=== PATIENT | male | born 1960 | race Caucasian/White ===

== ENCOUNTER 2018-05-27 20:31 | Inpatient (IN) ==
[2018-05-27 21:39] LABS: Basophils # 0.1 K/mcL (0.0-0.2); Basophils % 1.1 %; Eosinophils # 0.2 K/mcL (0.0-0.6); Eosinophils % 2.2 %; Hematocrit 48.3 % (37.5-50.1); Hemoglobin 16.1 g/dL (12.9-16.9); Immature Granulocytes % 0.2 % (0-4); Lymphocytes # 3.5 K/mcL (0.6-4.6); Lymphocytes % 33.7 %; Mean Corpuscular HGB Conc 33.3 g/dL (31.6-35.5); Mean Corpuscular Hemoglobin 30.7 pg (28.0-33.3); Mean Platelet Volume 9.7 fL (9.4-12.4); Monocytes % 9.9 %; Neutrophils # 5.5 K/mcL (1.6-8.9); Platelet Count 200 K/mcL (140-400); Red Blood Count 5.25 M/mcL (4.19-5.50); Red Cell Distribution Width 12.2 % (11.5-14.5); Segmented Neutrophils % 52.9 %
[2018-05-27] MEDS ORDERED: Nitroglycerin 0.4 MG TAB.SUBL SL ONE (21:46)
[2018-05-27 21:47] LABS: Activated Partial Thrombo Time 31.1 Seconds (26.0-36.0)
[2018-05-27] MEDS ORDERED: Aspirin 81 MG TAB.CHEW ONE (21:47)
[2018-05-27] MEDS: Aspirin 81 MG TAB.CHEW PO STA ×2 (21:51→21:52)
[2018-05-27] MEDS: Nitroglycerin 0.4 MG TAB.SUBL SL PRN ×4 (21:51→21:59)
--- NOTE | 2018-05-27 21:58 | Emergency Department Note ---
Disposition Clinical Impression: Chest pain Qualifiers: Chest pain type: unspecified Qualified Code(s): R07.9 - Chest pain, unspecified Disposition: Admitted As Inpatient General Adult HPI - General Chief complaint: ED Chest Pain Stated complaint: cp/high blood pressure/magen Time Seen by Provider: 05/27/18 20:57 Source: patient Limitations: no limitations - History of Present Illness HPI Narrative: Patient presented complaining of chest pain has been present most of the last 2 days. He cannot identify any alleviating or exacerbating factors. As a burning pain in the left parasternal region. Is associated with diaphoresis and nausea, no shortness of breath. Associated with left arm pain. He cannot recall any similar episodes in the past. He has 2 first-degree relatives who of heart attacks, 130s and 160s. He is a long-term pack-a-day smoker with dyslipidemia and high cholesterol area no history of hypertension, although his blood pressure was elevated earlier today. He had a heart catheterization 15 years ago that did not demonstrate coronary disease. No fever or cough. Pain Scale: 5 - Related Data Home Medications Medication Instructions Recorded Confirmed Rosuvastatin [Crestor] 20 mg PO HS 05/27/18 05/27/18 Allergies Allergy/AdvReac Type Severity Reaction Status Date / Time No Known Allergies Allergy Verified 05/27/18 22:00 All systems ED: reviewed and negative except as stated. Past Medical History - Past Medical History Medical history: Reports: hyperlipidemia Psychiatric history: Reports: no psych history - Social History Smoking Status: Current every day smoker Smokeless Tobacco Status: Yes Alcohol use: Reports: occasionally Drug use: Reports: none Physical Exam Vital signs noted please see nurse's notes. Gen.: Well-developed, well-nourished patient lying in bed who appears nontoxic. Head: Atraumatic, normocephalic. Eyes: Sclerae anicteric. ENT: Mucous membranes moist. Neck: No JVD. Heart: Regular rate and rhythm without appreciable murmur. Lungs: Normal respiratory pattern without respiratory distress, lungs clear to auscultation bilaterally. Abdomen: Soft, nontender, nondistended, no guarding or peritoneal signs. Skin: Warm and dry without rash. Neurologic: Awake, alert with normal speech and mental status. Cranial nerves grossly intact. No focal deficits or lateralizing signs. Psychiatric: Normal mood and affect. Muscular skeletal: No peripheral edema. No signs of trauma or DVT. - General Limitations: no limitations General appearance: alert Course Vital Signs Temperature 97.6 F 05/27/18 20:34 Pulse Rate 84 05/27/18 20:34 Respiratory Rate 18 05/27/18 20:34 Blood Pressure 171/99 05/27/18 20:34 O2 Sat by Pulse Oximetry 97 05/27/18 20:34 Temperature 97.3 F L 05/28/18 10:54 Pulse Rate 57 05/28/18 10:54 Respiratory Rate 16 05/28/18 10:54 Blood Pressure 116/74 05/28/18 10:54 O2 Sat by Pulse Oximetry 95 05/28/18 07:11 Oxygen Delivery Oxygen Delivery Room Air Medical Decision Making - MDM Narrative Medical decision making narrative: There is a normal EKG, but a somewhat concerning story and a very concerning risk factor profile.HEART score is H2 E0 A1 R2 Troponin pending. We will give him a nitroglycerin trial, anticipate admission. - Lab Data Result diagrams: 05/28/18 03:46 05/28/18 03:46 Lab Results 05/27/18 05/27/18 05/27/18 Range/Units 21:00 21:00 21:00 WBC 10.4 (4.3-11.1) K/mcL RBC 5.25 (4.19-5.50) M/mcL Hgb 16.1 (12.9-16.9) g/dL Hct 48.3 (37.5-50.1) % MCV 92.0 (83.0-100.0) fL MCH 30.7 (28.0-33.3) pg MCHC 33.3 (31.6-35.5) g/dL RDW 12.2 (11.5-14.5) % Plt Count 200 (140-400) K/mcL MPV 9.7 (9.4-12.4) fL Immature Gran % 0.2 (0-4) % Seg Neutrophils % 52.9 % Lymphocytes % 33.7 % Monocytes % 9.9 % Eosinophils % 2.2 % Basophils % 1.1 % Neutrophils # 5.5 (1.6-8.9) K/mcL Lymphocytes # 3.5 (0.6-4.6) K/mcL Monocytes # 1.0 (0.0-1.3) K/mcL Eosinophils # 0.2 (0.0-0.6) K/mcL Basophils # 0.1 (0.0-0.2) K/mcL PT 11.0 (9.4-12.1) Seconds INR 1.0 APTT 31.1 (26.0-36.0) Seconds Sodium (136-145) mEq/L Potassium (3.5-5.1) mEq/L Chloride (98-107) mEq/L Carbon Dioxide (23-29) mEq/L BUN (6-20) mg/dL Creatinine (0.70-1.30) mg/dL Est GFR ( Amer) (> 60) Est GFR (Non-Af Amer) (> 60) BUN/Creatinine Ratio (6-26) Glucose (70-105) mg/dL Calculated Osmolality (280-300) Calcium (8.6-10.3) mg/dL Troponin I (< 0.04) ng/mL B-Natriuretic Peptide 25 (Less than 100) pg/mL 05/27/18 Range/Units 21:00 WBC (4.3-11.1) K/mcL RBC (4.19-5.50) M/mcL Hgb (12.9-16.9) g/dL Hct (37.5-50.1) % MCV (83.0-100.0) fL MCH (28.0-33.3) pg MCHC (31.6-35.5) g/dL RDW (11.5-14.5) % Plt Count (140-400) K/mcL MPV (9.4-12.4) fL Immature Gran % (0-4) % Seg Neutrophils % % Lymphocytes % % Monocytes % % Eosinophils % % Basophils % % Neutrophils # (1.6-8.9) K/mcL Lymphocytes # (0.6-4.6) K/mcL Monocytes # (0.0-1.3) K/mcL Eosinophils # (0.0-0.6) K/mcL Basophils # (0.0-0.2) K/mcL PT (9.4-12.1) Seconds INR APTT (26.0-36.0) Seconds Sodium 137 (136-145) mEq/L Potassium 3.8 (3.5-5.1) mEq/L Chloride 104 (98-107) mEq/L Carbon Dioxide 25 (23-29) mEq/L BUN 21 H (6-20) mg/dL Creatinine 1.02 (0.70-1.30) mg/dL Est GFR ( Amer) > 60 (> 60) Est GFR (Non-Af Amer) > 60 (> 60) BUN/Creatinine Ratio 21 (6-26) Glucose 91 (70-105) mg/dL Calculated Osmolality 287 (280-300) Calcium 9.6 (8.6-10.3) mg/dL Troponin I < 0.03 (< 0.04) ng/mL B-Natriuretic Peptide (Less than 100) pg/mL - EKG Data EKG #1 EKG shows normal: sinus rhythm (Rate 75, normal intervals and QRS duration. No acute ischemic ST segment or T-wave changes. This is a normal EKG.)
[2018-05-27 22:00] LABS: BUN/Creatinine Ratio 21 (6-26); Blood Urea Nitrogen 21 mg/dL (6-20); Calcium 9.6 mg/dL (8.6-10.3); Carbon Dioxide 25 mEq/L (23-29); Chloride 104 mEq/L (98-107); Glucose 91 mg/dL (70-105); Osmolality,Calculated 287 (280-300); Potassium 3.8 mEq/L (3.5-5.1); Sodium 137 mEq/L (136-145); Troponin I < 0.03 ng/mL (< 0.04); eGFR For Non-African Americans > 60 (> 60)
[2018-05-28] MEDS ORDERED: Naloxone 0.4 MG/ML INJ IVP PRN (02:36)
[2018-05-28] MEDS ORDERED: traMADol 50 MG TABLET PO PRN (02:36)
[2018-05-28] MEDS ORDERED: Acetaminophen 325 MG TABLET PO PRN (02:36)
--- NOTE | 2018-05-28 03:55 | Internal Med History&Physical ---
Date of Encounter: 05/28/18 Time of Encounter: 02:00 Internal Medicine - H&P: HPI Chief complaint: chest pain Admitted From: Emergency Dept Plans for Post Hospital Care: Home History of present illness: Mr. Velasquez is a 57 year old male who presents with sudden onset of substernal chest pain and pressure associated with nausea, diaphoresis, shortness of breath , and radiation to his left arm. Symptoms first started over 24 hours ago. He initially ignored them. However, this evening, his symptoms intensified and really worried him. He then broke out in cold sweat and had associated dyspnea. His daughter forced him to come to the ER for evaluation. In the ER, he received 3 doses of sublingual nitroglycerin with complete relief of his chest pain. He was subsequently admitted to hospitalist service. Upon my assessment of the patient, he is chest pain-free and denies any dyspnea. Patient and daughter confirmed above history. He has had prior history of left heart catheterization about 15 years ago which was negative. Since then, he has not had any workup other than remote history of stress testing roughly 10 years ago. Of concern, however, is the fact that he has significant family history of coronary artery disease and premature thereof. He has a younger brother who of a massive heart attack at the age of 53. He has an older brother with known coronary disease and 7 cardiac stents. Furthermore, his mother of a heart attack in her early 60s. He also smokes and has high cholesterol. Therefore, cardiac factors include strong family history of premature coronary artery disease, smoking history, and hyperlipidemia. I discussed with patient and his daughter that I will proceed with serial cardiac enzymes and EKGs. I will tentatively order a stress test in the morning. In addition, I will consult cardiology for consideration of [facility]. Patient and daughter voiced understanding and agree with the plan. Past Med Surg Social Fam HX - Past Medical History Attestation: Yes The following information was validated with the patient. Source: patient, obtained from family Medical history: hyperlipidemia Psychiatric history: no psych history - Past Surgical History Surgical History: appendectomy Additional surgical history: appendectomy 1975, LHC in 2003 w/ no stents - Social History Smoking Status: Current every day smoker Packs per day: 1 Smokeless Tobacco Status: Yes Alcohol use: occasionally Drug use: none Current living situation: Home, With Family Activity Level: Independent ambulation, Very active Recent Out of Country Travel Within the Last 8 Weeks: No - Family History Mother Living Status: Cause of : MD Hx Family Cardiac Disorders: Yes Brother Living Status: Cause of : MD Hx Family Cardiac Disorders: Yes (MD) Internal Medicine - H&P: Meds Rosuvastatin [Crestor] 20 mg PO HS 05/27/18 [History] 3 Allergy/AdvReac Type Severity Reaction Status Date / Time No Known Allergies Allergy Verified 05/27/18 22:00 - Constitutional Constitutional: excessive sweating (associated w chest pain), no chills, no fever(s), no night sweats - EENT Eyes: no blurry vision, no change in vision Ears: no ear pain, no tinnitus Nose, mouth and throat: no nasal congestion, no sinus pressure, no sore throat - Cardiovascular Cardiovascular ROS IM: chest pain, diaphoresis, dyspnea, dyspnea on exertion, no orthopnea, no paroxysmal nocturnal dyspnea - Respiratory Respiratory: no cough, no hemoptysis, no chest congestion, no excessive phlegm production, no change in phlegm color, no pain with cough - Gastrointestinal Gastrointestinal: no abdominal pain, no diarrhea, no hematemesis, no hematochezia, no melena, no nausea, no vomiting - Genitourinary Genitourinary ROS male: no dysuria, no flank pain, no hematuria - Musculoskeletal Musculoskeletal ROS IM: no arthralgias, no back pain - Integumentary Integumentary IM: no rash, no jaundice - Neurological Neurological ROS: no dizziness, no focal weakness, no frequent falls, no headache(s) - Psychiatric Psychiatric: no anxiety, no depression - Endocrine Endocrine IM: no polydipsia, no polyuria - Hematologic/Lymphatic Hematologic/Lymphatic: no easy bruising - Allergic/Immunologic Allergic/Immunologic: no wheezing, no GI upset with certain foods - Constitutional Vitals: Temp Pulse Resp BP Pulse Ox 97.6 F 68 16 127/88 97 05/28/18 00:02 05/28/18 00:02 05/28/18 00:02 05/28/18 00:02 05/28/18 00:02 General appearance: Present: cooperative, A&O X 3, pleasant, no acute distress Exam: see below - Head Head exam: Present: normal inspection - Eye Eye exam: Present: EOMI, PERRL. Absent: scleral icterus Pupils: Present: normal accommodation - ENT ENT exam: Present: mucous membranes dry, normal exam, normal oropharynx - Neck Neck exam general surgery: Present: full ROM, supple. Absent: tenderness, nuchal rigidity, thyromegaly - Respiratory Respiratory exam: Present: CTAB. Absent: chest wall tenderness, rhonchi, wheezes - Cardiovascular Cardiovascular exam: Present: RRR, +S1, +S2. Absent: diastolic murmur, systolic murmur - GI/Abdominal GI/Abdominal exam: Present: normal bowel sounds, soft. Absent: hepatomegaly, mass, splenomegaly, tenderness - Extremities Exam Extremities exam: Present: normal capillary refill, warm, radial pulses palpable and symmetrical. Absent: calf tenderness, joint swelling, pedal edema , tenderness - Back Exam Back exam: Present: normal inspection. Absent: CVA tenderness (L), CVA tenderness (R) - Neurological Exam Neurological exam: Present: alert, oriented X3, no focal deficits, strengths equal and symetr throughout - Psychiatric Psychiatric exam: Present: normal affect, normal mood - Skin Skin exam: Present: dry, intact, warm Internal Med - H&P Results - Labs CBC & Chem 7: 05/27/18 21:00 05/27/18 21:00 - EKG Data -: EKG Interpreted by Myself - EKG Data Prior EKG available for review: no EKG comments: 05/28/18 04:02 NSR; no acute ST-T changes - Diagnostic Studies Chest x-ray Status: image reviewed by me (negative in my[facility]on; radiology read as possible LLL pneumonia -- I disagree) - Assessment and plan (1) Chest pain Current Visit: Yes Status: Acute Assessment and plan: 1. Will trend troponins and EKG's. 2. Will order ECHO. 3. Will tentatively order stress test, but I favor [facility] given symptoms, FH premature CAD, and other cardiac risk factors. 4. Consult cardiology for guidance. Qualifiers: Chest pain type: chest pain due to myocardial ischemia Ischemic chest pain type: stable angina pectoris Qualified Code(s): I20.8 - Other forms of angina pectoris (2) FH: premature coronary heart disease Current Visit: Yes Status: Acute Assessment and plan: 1. Work-up as above. 2. Consult cardiology for guidance. Strongly favor [facility]. (3) DVT prophylaxis Current Visit: Yes Status: Acute Assessment and plan: 1. Heparin SQ.
[2018-05-28 05:29] LABS: Basophils # 0.1 K/mcL (0.0-0.2); Eosinophils # 0.3 K/mcL (0.0-0.6); Eosinophils % 2.9 %; Hematocrit 47.2 % (37.5-50.1); Hemoglobin 15.8 g/dL (12.9-16.9); Immature Granulocytes % 0.3 % (0-4); Lymphocytes # 3.2 K/mcL (0.6-4.6); Lymphocytes % 36.1 %; Mean Corpuscular HGB Conc 33.5 g/dL (31.6-35.5); Mean Corpuscular Hemoglobin 30.9 pg (28.0-33.3); Mean Corpuscular Volume 92.4 fL (83.0-100.0); Mean Platelet Volume 10.5 fL (9.4-12.4); Monocytes # 0.9 K/mcL (0.0-1.3); Monocytes % 10.2 %; Neutrophils # 4.3 K/mcL (1.6-8.9); Platelet Count 194 K/mcL (140-400); Red Blood Count 5.11 M/mcL (4.19-5.50); Red Cell Distribution Width 12.3 % (11.5-14.5); Segmented Neutrophils % 49.5 %
[2018-05-28 05:32] LABS: Prothrombin Time 11.6 Seconds (9.4-12.1)
[2018-05-28 05:34] LABS: Activated Partial Thrombo Time 32.9 Seconds (26.0-36.0)
[2018-05-28 05:54] LABS: Alanine Aminotransferase 24 Units/L (7-52); Albumin 4.1 g/dL (3.5-5.7); Albumin/Globulin Ratio 1.5 (1.1-2.2); Alkaline Phosphatase 70 Units/L (34-104); Aspartate Amino Transferase 18 Units/L (13-39); BUN/Creatinine Ratio 26 (6-26); Bilirubin,Total 0.6 mg/dL (0.3-1.0); Blood Urea Nitrogen 22 mg/dL (6-20); Calcium 9.3 mg/dL (8.6-10.3); Carbon Dioxide 26 mEq/L (23-29); Chloride 105 mEq/L (98-107); Chol/HDL Ratio 7.1 (0-4.9); Cholesterol 212 mg/dL (< 200); Globulin 2.8 g/dL (2.4-3.5); Glucose 92 mg/dL (70-105); HDL Cholesterol 30 mg/dL (40-59); LDL Cholesterol,Calculated 142 mg/dL (0-99); Magnesium 2.1 mg/dL (1.6-2.6); Osmolality,Calculated 289 (280-300); Potassium 3.6 mEq/L (3.5-5.1); Sodium 138 mEq/L (136-145); Total Protein 6.9 g/dL (6.4-8.9); Triglycerides 200 mg/dL (< 150); eGFR For Non-African Americans > 60 (> 60)
[2018-05-28] MEDS: *HR* Heparin 5,000 UNIT/ML VIAL SQ SCH ×2 (05:55→17:52)
--- NOTE | 2018-05-28 08:12 | Cardiology Consult Note ---
<Hong Tate R - Last Filed: 05/28/18 08:07> Date of Encounter: 05/28/18 Time of Encounter: 08:07 Assessment and Plan (1) Chest pain Current Visit: Yes Status: Acute Presents with chest pain that started at home, at rest, left sided with radiation to left arm. Associated dyspnea, nausea and diaphoresis. Has noted fatigue over recent months. CP was relieved with nitro in ED. Reports BP was elevated at home--could have been contributing. ECG no acute findings. Troponin negative x 2. Reports negative LHC ~15 years ago. Risk factors for CAD include tobacco abuse, HLD, obesity, premature family hx. Stress test was already ordered by primary team to evaluate for ischemia. Will follow-up on results of stress test later today and make further recs. TTE to evaluate structure and function. Continue to follow. Qualifiers: Chest pain type: unspecified Qualified Code(s): R07.9 - Chest pain, unspecified Discussion w patient/family: The assessment and plan as outlined above was discussed with the patient and/or family members who expressed understanding and agreement. All questions were answered. Thank you for involving us in the care of your patient. Please call with any questions. I will discuss all the above with Dr. Franklin and make changes as necessary. History of Present Illness Consult date: 05/28/18 Requesting physician: Negro Juarez Consult reason: Chest pain Chief complaint: chest pain History of present illness: Mr. Velasquez is a 57 year old male with PMH HLD, tobacco abuse who presented to ED with sudden onset of substernal chest pain and pressure associated with nausea, diaphoresis, shortness of breath, and radiation to his left arm. Symptoms first started over 24 hours ago. He initially ignored them. Pain was intermittent. However, yesterday evening, his symptoms intensified, broke out in cold sweat and had associated dyspnea. In the ER, he received 3 doses of sublingual nitroglycerin with complete relief of his chest pain. Troponin negative x 2. Cardiology consulted for further recs. He had a LHC ~15 years ago which was negative. Since then, he has not had any workup other than remote history of stress testing roughly 10 years ago. significant family history of CAD. Younger brother from NC at age of 53, older brother with 7 cardiac stents. Mother of NC in her early 60s. Pt is chest pain free currently, states last episode was last night. Past Med Surg Social Fam HX - Past Medical History Medical history: hyperlipidemia Psychiatric history: no psych history - Past Surgical History Surgical History: appendectomy Additional surgical history: appendectomy 1975, LHC in 2003 w/ no stents - Social History Smoking Status: Current every day smoker Packs per day: 1 Smokeless Tobacco Status: Yes Alcohol use: occasionally Drug use: none - Family History Mother Living Status: Cause of : NC Hx Family Cardiac Disorders: Yes Brother Living Status: Cause of : NC Hx Family Cardiac Disorders: Yes (NC) Medications and Allergies Rosuvastatin [Crestor] 20 mg PO HS 05/27/18 [History] 3 Allergy/AdvReac Type Severity Reaction Status Date / Time No Known Allergies Allergy Verified 05/27/18 22:00 All Systems Review: The remainder of the systems were reviewed and are negative - Cardiovascular Cardiovascular: chest pain at rest, chest pain with exertion, diaphoresis, dyspnea on exertion, radiating jaw, neck or arm pain - Gastrointestinal Gastrointestinal: nausea Physical Examination Vital Signs, Last 4 Hours Temp Pulse Resp BP Pulse Ox 05/28/18 07:11 97.6 F 61 17 149/91 95 Vital Signs Temp Pulse Resp BP Pulse Ox 05/28/18 07:11 97.6 F 61 17 149/91 95 05/28/18 04:02 98.2 F 67 16 125/77 98 05/28/18 00:02 97.6 F 68 16 127/88 97 05/27/18 22:32 73 16 114/80 98 05/27/18 21:58 83 16 128/86 97 05/27/18 21:30 72 18 126/113 99 05/27/18 20:48 97.6 F 72 17 149/106 98 05/27/18 20:34 97.6 F 84 18 171/99 97 Intake and Output 05/27/18 05/28/18 05/28/18 23:59 07:59 15:59 Output Total 0 / 0 Balance 0 / 0 Output: Urine 0 / 0 Other: Weight 118.977 kg 118.3 kg Patient Weight 05/28/18 23:59 Weight 118.3 kg General: Conversant, No Apparent Distress HEENT: Atraumatic, Normocephaly, Mucus Membranes Moist Neck: No JVD, Normal carotid pulses Cardiac: Reg Rate and Rhythm, Normal S1 and S2, No Murmur Lungs: Normal Breath Sounds, No Wheeze, Rales, Rhonchi Neuro: Alert and responsive, No focal deficits noted Abdomen: Soft, Non-Tender Skin: No rashes noted on visualized skin Musculoskeletal: No Chest Wall Tenderness Extremities: No Clubbing, No Cyanosis, No Edema, Normal Pulses Results 05/28/18 03:46 05/28/18 03:46 Lab Results 05/28/18 05/28/18 05/28/18 03:46 03:46 03:46 WBC 8.7 Hgb 15.8 Hct 47.2 Plt Count 194 INR 1.0 APTT 32.9 Sodium Potassium Chloride Carbon Dioxide BUN Creatinine Glucose Calcium Magnesium Total Bilirubin AST ALT Alkaline Phosphatase Troponin I < 0.03 05/28/18 03:46 WBC Hgb Hct Plt Count INR APTT Sodium 138 Potassium 3.6 Chloride 105 Carbon Dioxide 26 BUN 22 H Creatinine 0.86 Glucose 92 Calcium 9.3 Magnesium 2.1 Total Bilirubin 0.6 AST 18 ALT 24 Alkaline Phosphatase 70 Troponin I Short CBC 05/28/18 05/27/18 Range/Units 03:46 21:00 WBC 8.7 10.4 (4.3-11.1) K/mcL Hgb 15.8 16.1 (12.9-16.9) g/dL Hct 47.2 48.3 (37.5-50.1) % Plt Count 194 200 (140-400) K/mcL Neutrophils # 4.3 5.5 (1.6-8.9) K/mcL BMP 05/28/18 05/27/18 Range/Units 03:46 21:00 Sodium 138 137 (136-145) mEq/L Potassium 3.6 3.8 (3.5-5.1) mEq/L Chloride 105 104 (98-107) mEq/L Carbon Dioxide 26 25 (23-29) mEq/L BUN 22 H 21 H (6-20) mg/dL Creatinine 0.86 1.02 (0.70-1.30) mg/dL Glucose 92 91 (70-105) mg/dL Calcium 9.3 9.6 (8.6-10.3) mg/dL Cardiac Enzymes 05/28/18 05/27/18 Range/Units 03:46 21:00 Troponin I < 0.03 < 0.03 (< 0.04) ng/mL Liver Function 05/28/18 Range/Units 03:46 Total Bilirubin 0.6 (0.3-1.0) mg/dL AST 18 (13-39) Units/L ALT 24 (7-52) Units/L Alkaline Phosphatase 70 (34-104) Units/L Albumin 4.1 (3.5-5.7) g/dL Impressions Chest X-Ray 05/27/18 21:27 IMPRESSION: Possible left lower lobe pneumonia D/ / Travis Henderson MD / Travis Henderson MD Interpreting Provider: Travis Henderson MD Active Medications Acetaminophen (Tylenol) 650 mg PO Q6HR PRN PRN Reason: Mild Pain/Fever Stop: 11/27/18 02:37 Aspirin (Aspirin) 81 mg PO DAILY [facility] Stop: 11/27/18 09:01 Heparin Sodium (Porcine) (Heparin) 5,000 unit SQ Q12HCO [place] Stop: 11/27/18 06:01 Last Admin: 05/28/18 05:55 Dose: 5,000 unit Naloxone HCl (Narcan) 0.4 mg IVP Q2MIN PRN PRN Reason: SEE COMMENTS Stop: 11/27/18 02:37 Nitroglycerin (Nitroglycerin) 0.4 mg SL Q5MIN PRN PRN Reason: Chest Pain Stop: 11/26/18 21:50 Last Admin: 05/27/18 21:59 Dose: 0.4 mg Rosuvastatin Calcium (Crestor) 20 mg PO HS [place] Stop: 11/27/18 21:01 Tramadol HCl (Ultram) 50 mg PO Q6HR PRN PRN Reason: Moderate Pain Stop: 11/27/18 02:37 - Imaging and Cardiology Stress Test: pending Echo: pending - EKG Interpretation EKG results cardiology: personally reviewed (SR), other (12 hr tele AVG HR 64, SR, no significant pauses or arrhythmias noted.) Consult Discharge Plan - Plan Referrals: Corry Wang CNP [Primary Care Provider] - ZProvider,ZConversio [Family Provider] - <Luis Carlos Franklin - Last Filed: 05/28/18 13:13> Date of Encounter: 05/28/18 - Attending Attestation I have personally performed a face to face evaluation on this patient. I have reviewed and agree with the care plan. History and Exam by me shows: CC: Chest pain Pt presented to ER with complaints of chest pain, associated with nausea, diaphoreisis and shortness of breath, started at rest, accompanied by tingling down left arm, and markedly elevated blood pressure. Severe 8/10 pain lasted approximately twenty minutes, slowly improving, with gradual improvement in diphoresis and shortness of breath. He presented with 5/10 chest pain, improved with first ntg, resolved with second ntg. Chest pain has not reoccurred since admiission. He had similar symptoms approx fifteen years ago, without the diaphoresis and left arm pain, underwent diagnostic LHC which he reports was essentially normal. PMH: reviewed ROS: reviewed PE: pt seen and examined, agree with physical findings as documented IMP/Plan: 1. Chest pain, has ruled out for acute NC, stress test reportedly normal, long conversation with pt and at bedside, are very concerned about false negative stress imaging in light of his family history, with multiple risk factors, recommend proceed with LHC/possible. Pt and understand and accept risks, elect to proceed. 2. Hypertension: new diagnosis, pt reports blood pressure always spikes with chest pain, will continue to monitor on optimal medical tx. 3. Hyperlipidemia, on rosuvastatin, fasting lipid profile pending. 4. Tobacco abuse, discussed smoking cessation, unable to pick a stop date, will consider pharmacologic tx at discharge. Assessment and Plan Discussion w patient/family: The assessment and plan as outlined above was discussed with the patient and/or family members who expressed understanding and agreement. All questions were answered. Thank you for involving us in the care of your patient. Please call with any questions. History of Present Illness History of present illness: Mr. Velasquez is a 57 year old male All Systems Review: The remainder of the systems were reviewed and are negative Physical Examination Vital Signs, Last 4 Hours Temp Pulse Resp BP 05/28/18 10:54 97.3 F L 57 16 116/74 Results 05/28/18 03:46 05/28/18 03:46 Lab Results 10/05/0705/28/18 05/28/18 03:46 03:46 03:46 WBC 8.7 Hgb 15.8 Hct 47.2 Plt Count 194 INR 1.0 APTT 32.9 Sodium Potassium Chloride Carbon Dioxide BUN Creatinine Glucose Calcium Magnesium Total Bilirubin AST ALT Alkaline Phosphatase Troponin I < 0.03 05/28/18 03:46 WBC Hgb Hct Plt Count INR APTT Sodium 138 Potassium 3.6 Chloride 105 Carbon Dioxide 26 BUN 22 H Creatinine 0.86 Glucose 92 Calcium 9.3 Magnesium 2.1 Total Bilirubin 0.6 AST 18 ALT 24 Alkaline Phosphatase 70 Troponin I
[2018-05-28] MEDS ORDERED: 0.9 % Sodium Chloride 1,000 ML ONE ×2 (13:20→13:44)
[2018-05-28] MEDS ORDERED: *HR* Heparin 10,000 UNIT/10 ML VIAL ONE (13:21)
[2018-05-28] MEDS ORDERED: ISOVUE-370 200 ML INFUS..BTL IV ONE (13:21)
[2018-05-28] MEDS ORDERED: Nitroglycerin 1,000 MCG/10 ML VIAL IV ONE (13:21)
[2018-05-28] MEDS ORDERED: Heparin 1,000 UNITS/500 mL 500 ML ONE (13:21)
--- NOTE | 2018-05-28 13:21 | Pre-Sedation Evaluation ---
Pre-sedation evaluation - Pre-sedation checklist Date of procedure: 05/28/18 Procedure: [facility] Recent Vitals: Last Vital Signs Temp 97.3 F L 05/28/18 10:54 Pulse 57 05/28/18 10:54 Resp 16 05/28/18 10:54 BP 116/74 05/28/18 10:54 Pulse Ox 95 05/28/18 07:11 H&P (including ROS) documented in medical record: Yes Previous reaction to sedatives/anesthetics: No Dietary Status: NPO after Midnight Airway Assessment: Patient can open mouth completely, TMJ function normal, Micrognathia (under-bite, receding chin) absent, Neck with adequate range of motion Dentition: No loose teeth or bridges Possible difficult airway: No ASA Classification *see protocol: CLASS II-Mild systemic disease Plan of Care: Pt appropriate candidate for procedure/moderate/conscious sedation , Risks/benefits of procedure/sedation discussed w/ patient/family Cardiac Registry (Cardio Only) - Functional Capacity Functional Capacity: >=4 METS with symptoms - Clincal Frailty Scale Clinical Frailty Scale: Managing Well
[2018-05-28] MEDS: Aspirin 81 MG TAB.CHEW PO SCH (13:38)
[2018-05-28] MEDS ORDERED: *HR* FentaNYL (PF) 100 MCG/2 ML VIAL ONE (13:42)
[2018-05-28] MEDS ORDERED: *HR* Midazolam HCl 2 MG/2 ML VIAL ONE (13:42)
--- NOTE | 2018-05-28 14:39 | Invasive Diagnostic Lab Proc ---
Name: Evert Velasquez Date of Study: 05/28/2018 Date: 1960 Ht: 72.0in Medical Record#: [id number] Age: 57 Wt: 260.15lb Gender: Male BSA: 2.38 Order #: [id number] BMI: 35.24 Physicians Procedure Physician: Ruma Shen MD, FACC Referring MD: Referring MD: Staff Name Position Time In Lori King RT (R) Monitor 01:42 PM Myra Jonas RN Baggage Clerk 01:42 PM Abhi Somers RT (R) Scrub 01:42 PM Indications Indication Unstable Angina Procedures Performed Procedure L HRT ARTERY/VENTRICLE ANGIO Pre-Procedure Checklist Informed consent is complete signed and on chart. H&P is on chart. ID band is on and ID verified with patient. Patient NPO for procedure The procedure was described for the patient and questions were answered. ECG is on chart. Plan of Care Patient will tolerate the procedure without complications. Adequate level of comfort will be maintained. Hemodynamics will remain stable Patient will recover from procedure without complications. Respiratory function will be maintained. Cardiac rhythm will remain stable. Patient temperature will be maintained. Patient and/or family have verbalized understanding of the procedure. Patient Education Chief Complaint/Reason for Test: Cardiac Cath Developmental Category: Adult (18-64 years) Developmentally Appropriate for Age: Yes Learning Barriers: None Education Needs: Procedure Education Method: Verbal Information Taught: Cardiac Cath Educational Evaluation: Able to repeat information Intravenous Access Time IV Size Location DC'd Fluid/Drip Rate Units RN 0.9NaCl ml/hr Allergies No Known Allergies Vital Signs Time BP (mmHg) HR (bpm) O2 Sat. RR (bpm) LOC 01:48 PM / % 4 = Oriented but drowsy 01:48 PM / % 4 = Oriented but drowsy 02:03 PM / % 4 = Oriented but drowsy 01:48 PM 195 / 130 83 99 % 14 01:52 PM 174 / 114 93 100 % 16 01:57 PM 174 / 110 72 97 % 13 01:58 PM 156 / 97 66 98 % 14 02:02 PM 152 / 90 57 98 % 17 02:07 PM 170 / 119 84 97 % 12 02:12 PM 161 / 114 80 94 % 16 02:17 PM 170 / 105 64 98 % 18 02:22 PM 169 / 126 76 98 % 10 Procedural Medications Time Medication Dose Units Method Given By 01:47 PM Oxygen 2 L/min nasal cannula Myra Jonas RN 01:47 PM Versed 2 mg Intravenous Myra Jonas RN 01:47 PM Fentanyl 50 mcg Intravenous Myra Jonas RN 02:00 PM Benadryl 25 mg Intravenous Myra Jonas RN 02:01 PM Lidocaine 2% 20 ml Subcutaneous Ruma Shen MD, [facility] 02:07 PM Nitroglycerin 200 mcg Intracoronary Ruma Shen MD, [facility] ASA Classification: CLASS II- Mild systemic disease (i.e. well-controlled diabetes, hypertension, asthma, cigarette smoking) Sabrina Score Preprocedure Postprocedure Activity 2- Moves 4 extremities sustained head lift Activity 2- Moves 4 extremities sustained head lift Circulation 2- SBP +/= 20 points of pre-anesthetic level Circulation 2- SBP +/= 20 points of pre-anesthetic level Consciousness 2- Awake and alert oriented x 3 Consciousness 2- Awake and alert oriented x 3 O2 Saturation 2- Able to maintain O2 satruation of 92% on room air O2 Saturation 2- Able to maintain O2 satruation of 92% on room air Respiratory 2- Able to deep breathe and cough well Respiratory 2- Able to deep breathe and cough well Total Score 10 Total Score 10 Contrast Agent: Isovue Diagnostic Contrast: 60 ml Total Contrast: 60 ml Fluoro Dose: 6783 mGy Procedure Log Time Note Enter By 01:39 PM CathStat 01:42 PM Pt arrived to [facility] at 13:42 [email or web address] 01:42 PM Lori King RT (R) Position: Monitor Time in: 13:42 [email or web address] 01:42 PM Myra Jonas RN Position: Baggage Clerk Time in: 13:42 [email or web address] 01:43 PM Abhi Somers RT (R) Position: Scrub Time in: 13:42 [email or web address] 01:43 PM Patient charges- Angio tray pack, Navilyst 3mm J, Pulse Oximetry and ACIST tubing and transducer [email or web address] 01:43 PM Case Delayed No [email or web address] 01:43 PM Hair removed from procedure site in holding area using clippers. Bilateral groin prepped with Chloraprep by , then patient was draped. Skin intact. [email or web address] 01:46 PM Vitals capture started with the following parameters, Patient=Adult, Interval=5 min, Initial Zlpyqrvy=412 mmHg, Deflation Rate=5 mmHg, Cuff placed on Right Arm 01:46 PM Recorded ECG: HR=68 Condition=Condition 1 01:47 PM Physician arrived 13:47 [email or web address] ASA Class CLASS II- Mild systemic disease (i.e. well-controlled diabetes, hypertension, asthma, cigarette smoking) [email or web address] :47 PM Sign in performed according to hospital policy. Informed consent was obtained. [email or web address] :47 PM Procedure start 13:47 [email or web address] :47 PM Time: 13:47 Oxygen on at 2 L/min per nasal cannula by Myra Jonas RN [email or web address] :[email or web address] PM Time: 13:47 Versed 2 mg Intravenous Given by Myra Jonas RN [email or web address] :47 PM Time: 13:47 Fentanyl 50 mcg Intravenous Given by Myra Jonas RN [email or web address] 01:48 PM HR=83 bpm, GUPW=422/130 mmhg, SpO2=99.0 %, Resp=14 B/min 01:48 PM Time: 13:48LOC: 4 = Oriented but drowsy [email or web address] 01:48 PM Time: 13:48 Patient comfortable and pain free: Yes [email or web address] 01:52 PM HR=93 bpm, KEGV=226/114 mmhg, AcV9=918.0 %, Resp=16 B/min, Comment=NSR 01:52 PM Pressure channel 1 zeroed. 01:57 PM HR=72 bpm, PUNL=851/110 mmhg, SpO2=97.0 %, Resp=13 B/min, Comment=NSR 01:58 PM NIBP STAT measurement started. 01:58 PM HR=66 bpm, MRTS=082/97 mmhg, SpO2=98.0 %, Resp=14 B/min, Comment=NSR 02:00 PM Time: 14:00 Benadryl 25 mg Intravenous Given by Myra Jonas RN [email or web address] 02:00 PM Time out was performed according to hospital policy. Conscious sedation and anesthesia was achieved (see medication log with in this report above) [email or web address] 02:02 PM Time: 14:01 20 ml Lidocaine 2% to right groin Subcutaneous Given by Ruma Shen MD, [facility] [email or web address] 02:02 PM Access obtained by percutaneous puncture. 5Fr 10cm Terumo [place] sheath placed in right Femoral artery. [id number] [email or web address] 02:02 PM HR=57 bpm, MXED=911/90 mmhg, SpO2=98.0 %, Resp=17 B/min, Comment=NSR 02:02 PM 0.035 145cm Navilyst 3mmJ wire [id number] [email or web address] 02:02 PM 5Fr FL 4 catheter inserted over the wire DN [email or web address] 02:03 PM LCA angiography performed in multiple views. [email or web address] 02:03 PM Time: 13:48LOC: 4 = Oriented but drowsy [email or web address] 02:04 PM Time: 13:48 Patient comfortable and pain free: Yes [email or web address] 02:04 PM Recorded Pressure: Ao, HR=61, Condition=Condition 1 (Aorta) Ao 120/73/92 02:07 PM HR=84 bpm, IYXG=160/119 mmhg, SpO2=97.0 %, Resp=12 B/min, Comment=NSR 02:07 PM Time: 14:07 Nitroglycerin 200 mcg Intracoronary Given by Ruma Shen MD, [facility] [email or web address] 02:08 PM Catheter removed [email or web address] 02:08 PM 5Fr FR 4 catheter inserted over the wire [facility] [email or web address] 02:09 PM RCA angiography performed in multiple views. [email or web address] 02:09 PM Recorded Pressure: Ao, HR=85, Condition=Condition 1 (Aorta) Ao 132/92/111 02:10 PM Coronary Dominance: right [email or web address] 02:10 PM Catheter removed [email or web address] 02:10 PM 5Fr Pigtail catheter inserted over the wire [facility] [email or web address] 02:11 PM Catheter crossed the aortic valve and was selectively placed in the left ventricle. Pressures recorded on pullback for left heart catheterization. [email or web address] 02:12 PM Pressure channel 1 zeroed. 02:12 PM Bolus angiogram of left Ventricle complete: 8 ml/sec for a total of 24 mls [email or web address] 02:12 PM Recorded Pressure: LV, HR=82, Condition=Condition 1 (Left Ventricle) LV 150/-11/7 02:12 PM HR=80 bpm, MTMS=105/114 mmhg, SpO2=94.0 %, Resp=16 B/min, Comment=NSR 02:12 PM Recorded Pressure: LV, Ao, HR=76, Condition=Condition 1 (Left Ventricle) LV 127/34/55, (Aorta) Ao 116/87/101 02:13 PM Catheter removed [email or web address] 02:15 PM Bolus angiogram of right Femoral complete: 4 ml/sec for a total of 7 mls [email or web address] 02:16 PM Procedure completed at 14:16 05/28/2018 [email or web address] 02:16 PM Did you address ROHAN flow and Dominance? Yes [email or web address] 02:16 PM Sign out completed: Radiation Dose 554.38 mGy, 6783.07 cGy/cm2 Fluoro Time: 2.8 Isovue 370 - 200ml contrast 82 ml given by Ruma Shen MD, [facility]. Complications: None. The patient was discharged out of the lab director in stable condition. Cardiac Rehab Consult needed: YesConfirmed administered medications: Yes [email or web address] 02:16 PM Isovue 370 - 200ml,1 Bottle(s) used. [email or web address] 02:16 PM Arterial sheath pulled, Mynx closure device used and was Successful S/N. [email or web address] 02:16 PM Estimated Blood Loss: minimal [email or web address] 02:16 PM Post ECG NSR [email or web address] 02:17 PM Information taught Cardiac Cath [email or web address] 02:17 PM HR=64 bpm, VCQN=629/105 mmhg, SpO2=98.0 %, Resp=18 B/min, Comment=NSR 02:17 PM Education needs Procedure, Plan of Care, and Disease Process [email or web address] 02:17 PM Learning barriers :None [email or web address] 02:17 PM Education Methods Verbal [email or web address] 02:17 PM Education evaluation Able to repeat information [email or web address] 02:17 PM Delay to floor No [email or web address] 02:18 PM Family placed in consult room. [email or web address] 02:18 PM Complications: None [email or web address] 02:18 PM Conversation between Interventionalist and CT Surgeon Dr. Garrido. [email or web address] 02:19 PM Time: 14:04 Patient comfortable and pain free: Yes [email or web address] 02:19 PM Time: 14:03LOC: 4 = Oriented but drowsy [email or web address] 02:20 PM Site status No bleeding/hematoma - Rt Groin as reported by Abhi Somers RT (R) at 14:20 [email or web address] 02:20 PM Opsite applied [email or web address] 02:22 PM HR=76 bpm, LGBR=919/126 mmhg, SpO2=98.0 %, Resp=10 B/min, Comment=NSR 02:30 PM Report given to Miguelina GAINES Pt taken to Room #66. 14:30 [email or web address] 02:30 PM Patient out of room: 14:30 [email or web address] Complications Complication None None Hemodynamics Pressures Site Systolic/A Wave Diastolic/V Wave Mean AO 120 73 92 AO 132 92 111 LV 150 -11 7 LV 127 34 55 AO 116 87 101 Post Procedure Information Rhythm: NSR Post procedural instructions were given Surgery consult for CABG Closure Device Time Device Success/Fail 05/28/2018 2:20:00 PM MynxGrip Successful Site Checks Time Location Status Staff Sheath In? Note 02:20 PM Rt Groin No bleeding/hematoma Abhi Somers RT (R) Pulses Time Site Pre-Procedure Post-Procedure Note Bilateral DP & PT 2+ Bilateral radial 2+ Updated by Lori King RT(R) on 05/28/2018 2:30:46 PM electronically signed on 05/28/2018 2:31:08 PM with status of Final
--- NOTE | 2018-05-28 15:19 | Event Note ---
Date of Encounter: 05/28/18 Time of Encounter: 15:17 Pt seen after midnight. s/p stress test and results pending. No acute changes since admission. Denies CP or SOB at this time. /female friend at bedside.
--- NOTE | 2018-05-28 17:39 | Cardiothoracic Consult Note ---
Date of Encounter: 05/28/18 Time of Encounter: 17:35 Assessment and Plan (1) CAD (coronary artery disease) Current Visit: Yes Status: Acute The patient is a 57-year-old man with hypercholesterolemia and a strong family history of premature CAD. He had sudden onset of substernal chest pain radiating to his jaw and down his left arm with associated shortness of breath, dyspnea on exertion, diaphoresis, and nausea yesterday. He was admitted to [facility] for cardiac workup. Although the low level stress test revealed no evidence of ischemia, he underwent cardiac catheterization given his presenting symptoms and strong family history of premature CAD. The catheterization revealed severe 3 vessel CAD and an LVEF 65% . In particular the patient has a 90% proximal left main lesion, luminal irregularities in the LAD, a 50% proximal OM2 lesion, an 80% PLB lesion. He has been recommended for CABG. I concur with this recommendation. The patient will be scheduled for CABG I Dr. Sylvester Gurrola on , 05/30/2018. The assessment and plan as outlined above was discussed with the patient and/or family members who expressed understanding and agreement. All questions were answered. Qualifiers: Coronary Disease-Associated Artery/Lesion type: [place] artery [place] vs. transplanted heart: [place] heart Associated angina: with unstable angina Qualified Code(s): I25.110 - Atherosclerotic heart disease of [place] coronary artery with unstable angina pectoris - History of Present Illness Consult date: 05/28/18 Requesting physician: Ruma Shen Consult reason: CABG evaluation Chief complaint: Substernal chest pain History of present illness: Mr. Velasquez is a 57 year old man with hypercholesterolemia and a strong family history of premature CAD. The patient had sudden onset of substernal chest pain radiating to his jaw and down his left arm, as well as associated shortness of breath, diaphoresis, and nausea yesterday. The patient was evaluated at [facility] emergency department and given sublingual nitroglycerin. He had relief of his substernal chest pain. Given his presenting symptoms and his strong family history of premature CAD, he was admitted for further cardiac workup. The patient underwent a transthoracic echocardiogram which revealed an LVEF 60- 65% with normal left ventricular chamber size, wall thickness, and function. A low-level stress test revealed no evidence of ischemia. Subsequent cardiac catheterization revealed severe single-vessel CAD and an LVEF 65%. In particular, the patient has a 90% proximal left main lesion, luminal irregularities in the proximal and mid LAD, a 50% proximal OM 2 lesion, a 30% proximal RCA lesion, a 40% mid RCA lesion, an 80% proximal PLB lesion. He has been recommended for CABG. Past Med Surg Social Fam HX - Past Medical History Medical history: coronary artery disease, hyperlipidemia Psychiatric history: no psych history - Past Surgical History Surgical History: appendectomy Additional surgical history: appendectomy 1975, LHC in 2003 w/ no stents - Social History Smoking Status: Current every day smoker Packs per day: 1-2PPD X 45 YRS Smokeless Tobacco Status: Yes Alcohol use: occasionally Drug use: none Occupational status: employed Current living situation: Home - Independent Activity Level: Independent ambulation, Very active Recent Out of Country Travel Within the Last 8 Weeks: No Exposure or Possible Exposure to Illness During Travel: No - Family History Mother Living Status: Cause of : [place] Hx Family Cardiac Disorders: Yes Brother Living Status: Cause of : [place] Hx Family Cardiac Disorders: Yes ([place]) Medications and Allergies Rosuvastatin [Crestor] 20 mg PO HS 05/27/18 [History] 3 Allergy/AdvReac Type Severity Reaction Status Date / Time No Known Allergies Allergy Verified 05/27/18 22:00 All Systems Review: The remainder of the systems were reviewed and are negative Physical Examination Vital Signs, Last 4 Hours Temp Pulse Resp BP Pulse Ox 05/28/18 16:30 97.5 F L 69 19 143/86 96 05/28/18 16:28 97.5 F L 69 19 143/86 96 05/28/18 15:56 68 150/99 05/28/18 15:29 69 151/90 95 05/28/18 15:15 61 15 152/90 96 05/28/18 14:48 67 18 141/95 95 General: Conversant, No Apparent Distress HEENT: Atraumatic, Normocephaly, Trachea midline Neck: No JVD, Normal carotid pulses Cardiac: Reg Rate and Rhythm, Normal S1 and S2, No Murmur Lungs: Normal Breath Sounds, No Wheeze, Rales, Rhonchi Neuro: Alert and responsive, No focal deficits noted, Motor nerves intact, Sensory nerves intact Vascular: Normal capillary refill Abdomen: Soft, Non-tender Skin: No rashes noted on visualized skin Musculoskeletal: No Chest Wall Tenderness Extremities: No Clubbing, No Cyanosis, No Edema, Normal Pulses Results 05/28/18 03:46 05/28/18 03:46 Lab Results, Last 24 hours 05/28/18 05/28/18 05/28/18 03:46 03:46 03:46 WBC 8.7 Hgb 15.8 Hct 47.2 Plt Count 194 INR 1.0 APTT 32.9 Sodium Potassium Chloride Carbon Dioxide BUN Creatinine Glucose Calcium Magnesium Total Bilirubin AST ALT Alkaline Phosphatase Troponin I < 0.03 05/28/18 03:46 WBC Hgb Hct Plt Count INR APTT Sodium 138 Potassium 3.6 Chloride 105 Carbon Dioxide 26 BUN 22 H Creatinine 0.86 Glucose 92 Calcium 9.3 Magnesium 2.1 Total Bilirubin 0.6 AST 18 ALT 24 Alkaline Phosphatase 70 Troponin I - Imaging Chest Xray: image reviewed (Cardiomegaly. Possible left lower lobe infiltrate.) Consult Discharge Plan - Plan Referrals: Corry Wang CNP [Primary Care Provider] - Dia Ngo [Family Provider] -
--- NOTE | 2018-05-28 19:03 | Electrocardiograph Report ---
[address] [address] Test Date: 2018-05-27 Pat Name: Evert Velasquez Department: EXAM6 Room: 3B Gender: M Applications Development Analyst: : 1960 Requested By: Travis Vargas Order Number: [id number] Reading MD: Arnold Paz Measurements Intervals [place] Rate: 75 P: 37 NE: 156 QRS: 13 QRSD: 84 T: 67 QT: 403 QTc: 451 Interpretive Statements Sinus rhythm Electronically Signed On 05-28-2018 19:01:42 EDT by Arnold Paz
--- NOTE | 2018-05-28 19:08 | Electrocardiograph Report ---
[place] [address] Test Date: 2018-05-28 Pat Name: Evert Velasquez Department: 113 Room: 3B Gender: M Testing Tech: : 1960 Requested By: Negro Juarez Order Number: [id number] Reading MD: Arnold Paz Measurements Intervals [place] Rate: 63 P: 7 [place]: 170 QRS: -1 QRSD: 87 T: 66 QT: 429 QTc: 436 Interpretive Statements SINUS RHYTHM NONSPECIFIC T-WAVE ABNORMALITY Electronically Signed On 05-28-2018 19:06:59 EDT by Arnold Paz
[2018-05-29] MEDS: *HR* Heparin 5,000 UNIT/ML VIAL SQ SCH (05:40)
[2018-05-29] MEDS: Aspirin 81 MG TAB.CHEW PO SCH (08:48)
[2018-05-29 09:46] LABS: Basophils # 0.1 K/mcL (0.0-0.2); Basophils % 0.8 %; Eosinophils # 0.2 K/mcL (0.0-0.6); Eosinophils % 2.2 %; Hemoglobin 16.7 g/dL (12.9-16.9); Immature Granulocytes % 0.2 % (0-4); Lymphocytes # 2.6 K/mcL (0.6-4.6); Lymphocytes % 28.6 %; Mean Corpuscular HGB Conc 33.4 g/dL (31.6-35.5); Mean Corpuscular Hemoglobin 30.8 pg (28.0-33.3); Mean Corpuscular Volume 92.3 fL (83.0-100.0); Mean Platelet Volume 10.1 fL (9.4-12.4); Monocytes # 0.6 K/mcL (0.0-1.3); Monocytes % 6.1 %; Neutrophils # 5.6 K/mcL (1.6-8.9); Platelet Count 195 K/mcL (140-400); Red Blood Count 5.42 M/mcL (4.19-5.50); Red Cell Distribution Width 12.2 % (11.5-14.5); Segmented Neutrophils % 62.1 %
[2018-05-29 10:02] LABS: BUN/Creatinine Ratio 18 (6-26); Blood Urea Nitrogen 18 mg/dL (6-20); Calcium 9.6 mg/dL (8.6-10.3); Carbon Dioxide 25 mEq/L (23-29); Chloride 105 mEq/L (98-107); Glucose 151 mg/dL (70-105); Osmolality,Calculated 287 (280-300); Potassium 3.8 mEq/L (3.5-5.1); Sodium 136 mEq/L (136-145); eGFR For Non-African Americans > 60 (> 60)
--- NOTE | 2018-05-29 10:29 | Internal Med Progress Note ---
<Vladimir Ashraf - Last Filed: 05/29/18 17:10> Hospitalist Progress Note - Encounter Date of Encounter: 05/29/18 Time of Encounter: 11:06 - Subjective Interval History: Mr. Velasquez is a 57M with PMH of hyperlipidemia and significant family hx of CAD with premature . He originally presented to the ED on 05/27 complaining of sudden onset substernal chest pain and pressure associated with nausea, diaphoresis, shortness of breath, and radiation to his left arm. He also experienced diaphoresis and dyspnea. The chest pain had been occurring for the past 24 hours and was relieved after 3 doses of Nitroglycerin. EKG showed normal sinus rhythm. CXR revealed possible left lower lobe PNA. Serial troponins were negative. Cardiology was consulted. Echo was normal. Nuclear stress test was normal. Underwent LHC on 05/28 which revealed triple vessel disease with Left main disease. CT surgery was consulted and are planning for CABG tomorrow. Pt seen and examined at bedside. Sitting comfortably at bedside in no acute distress. No new or acute complaints. Denies any current chest pain or shortness of breath. Denies fever, chills, abdominal pain, nausea, vomiting, headache, numbness, or tingling. - Exam Vitals: Temp Pulse Resp BP Pulse Ox 98.2 F 67 18 98/63 96 05/29/18 08:36 05/29/18 08:36 05/29/18 08:36 05/29/18 08:36 05/29/18 08:36 Exam: Constitutional: well developed, well nourished. no acute distress Head: normocephalic and atraumatic Eyes: PERRL, EOMI. no scleral icterus Neck: supple, trachea midline. no lymphadenopathy Lungs: CTA bilaterally. non-labored breathing. No wheezes, rales, or rhonchi. Heart: RRR +s1 +s2. no murmurs, clicks, or rubs GI: abdomen soft, non-tender, non-distended Extremities: radial pulses palpable and symmetrical. no cyanosis or edema. Neuro: A&Ox3. no focal deficits. no speech difficulty or abnormality Skin: warm, dry, intact - Assessment and Plan (1) CAD (coronary artery disease) Current Visit: Yes Status: Acute Assessment and Plan: Plan as above for CABG Increased Crestor to 40mg qd in light of strong family hx of CAD with premature and significant hyperlipidemia as seen on yesterday's labs (2) Triple vessel coronary artery disease Current Visit: Yes Status: Acute Assessment and Plan: [facility] on 05/28 revealed triple vessel CAD with left main disease. CT surgery consulted, plan is for CABG tomorrow. Continue ASA Increase Crestor to 40mg qd Continue Metoprolol 25mg BID DVT Prophylaxis: SQ Heparin - Time Spent with Patient Total time spent is greater than 50% in coordination of care (as documented) at patient's floor/unit and/or counseling patient: Internal Medicine: Result - Labs CBC & Chem 7: 05/29/18 09:15 05/29/18 09:15 Labs: Short CBC 05/29/18 Range/Units 09:15 WBC 9.0 (4.3-11.1) K/mcL Hgb 16.7 (12.9-16.9) g/dL Hct 50.0 (37.5-50.1) % Plt Count 195 (140-400) K/mcL Neutrophils # 5.6 (1.6-8.9) K/mcL BMP 05/29/18 09:15 Sodium 136 Potassium 3.8 Chloride 105 Carbon Dioxide 25 BUN 18 Creatinine 0.99 Glucose 151 H Calcium 9.6 - ABG Interpretation ABG results: PT/INR, D-dimer PT 11.6 Seconds (9.4-12.1) 05/28/18 03:46 - Impressions Impressions Echocardiogram 05/28/18 02:36 Impressions: LVEF 60-65%. Normal LV chamber size, wall thickness and function. Mild left ventricular diastolic dysfunction. Normal right ventricular structure and function. No evidence of pulmonary hypertension. Consult Discharge Plan - Plan Referrals: Corry Wang CNP [Primary Care Provider] - Dia Ngo [Family Provider] - <Hollie Hernandez - Last Filed: 05/30/18 07:19> Hospitalist Progress Note - Encounter Date of Encounter: 05/30/18 - Exam Vitals: Temp Pulse Resp BP Pulse Ox 98.2 F 61 16 155/93 97 05/30/18 05:49 05/30/18 05:49 05/30/18 05:49 05/30/18 05:49 05/30/18 05:49 - Assessment and Plan (1) CAD (coronary artery disease) Current Visit: Yes Status: Acute (2) Triple vessel coronary artery disease Current Visit: Yes Status: Acute - Time Spent with Patient Total time spent is greater than 50% in coordination of care (as documented) at patient's floor/unit and/or counseling patient: Internal Medicine: Result - Labs CBC & Chem 7: 05/30/18 01:19 05/30/18 01:19 Labs: Short CBC 05/29/18 05/30/18 Range/Units 09:15 01:19 WBC 9.0 10.7 (4.3-11.1) K/mcL Hgb 16.7 16.2 (12.9-16.9) g/dL Hct 50.0 48.8 (37.5-50.1) % Plt Count 195 187 (140-400) K/mcL Neutrophils # 5.6 5.9 (1.6-8.9) K/mcL BMP 05/29/18 05/30/18 09:15 01:19 Sodium 136 137 Potassium 3.8 3.9 Chloride 105 107 Carbon Dioxide 25 23 BUN 18 17 Creatinine 0.99 0.88 Glucose 151 H 108 H Calcium 9.6 9.5 Urine 05/29/18 Range/Units 17:02 Urine Color Yellow (Yellow) Urine Clarity Clear (Clear) Urine pH 6.5 (5.0-8.0) pH Units Ur Specific Anton 1.015 (1.010-1.025) Urine Protein Negative (Neg-Trace) mg/dL Urine Glucose (UA) Normal (Normal) mg/dL - ABG Interpretation ABG results: PT/INR, D-dimer PT 11.6 Seconds (9.4-12.1) 05/28/18 03:46 - Attending Attestation Seen and assessed. Agree with plan per resident Plan for CABG in am <Vladimir Ashraf A - Last Filed: 05/29/18 17:10> (1) CAD (coronary artery disease) Qualifiers: Coronary Disease-Associated Artery/Lesion type: [place] artery [place] vs. transplanted heart: [place] heart Associated angina: with unstable angina Qualified Code(s): I25.110 - Atherosclerotic heart disease of [place] coronary artery with unstable angina pectoris <Hollie Hernandez A - Last Filed: 05/30/18 07:19> (1) CAD (coronary artery disease) Qualifiers: Coronary Disease-Associated Artery/Lesion type: [place] artery [place] vs. transplanted heart: [place] heart Associated angina: with unstable angina Qualified Code(s): I25.110 - Atherosclerotic heart disease of [place] coronary artery with unstable angina pectoris
--- NOTE | 2018-05-29 11:08 | Cardiology Progress Note ---
Date of Encounter: 05/29/18 Time of Encounter: 11:06 Assessment and Plan (1) CAD (coronary artery disease) Current Visit: Yes Status: Acute LHC yesterday triple vessel CAD with left main disease. CT surgery consulted, plan is for CABG tomorrow. Right femoral access site healing well. No bleeding, hematoma or ecchymosis noted. Continue ASA, Statin, BB. Brief episode of CP this AM, now resolved. TTE EF preserved, mild LVDD. Cardiology signing off. Reconsult PRN. Will coordinate outpt follow-up in 4-6 weeks. Qualifiers: Coronary Disease-Associated Artery/Lesion type: [place] artery [place] vs. transplanted heart: [place] heart Associated angina: with unstable angina Qualified Code(s): I25.110 - Atherosclerotic heart disease of [place] coronary artery with unstable angina pectoris (2) Unstable angina Current Visit: Yes Status: Acute Presented with chest pain that started at home, at rest, left sided with radiation to left arm. Associated dyspnea, nausea and diaphoresis. Has noted fatigue over recent months. CP was relieved with nitro in ED. Troponins negative, no acute ECG changes. Stress test was negative yesterday, but given his symptoms and significant premature family hx of CAD, underwent LHC. Triple vessel CAD with left main. CT surgery consulted--plan for CABG tomorrow, as above. Brief episode of L sided CP this AM, now resolved. Discussion w patient/family: The assessment and plan as outlined above was discussed with the patient and/or family members who expressed understanding and agreement. All questions were answered. Thank you for involving us in the care of your patient. Please call with any questions. I will discuss all the above with Dr. Franklin and make changes as necessary. Subjective Principal diagnosis: CAD, [place] Interval history: Underwent LHC yesterday--triple vessel CAD with left main disease. CT surgery was consulted--tentatively planned to have CABG tomorrow 05/30/18. Pt reports brief episode of chest pain this AM, left sided. Currently CP free. Objective Vital Signs, Last 4 Hours Temp Pulse Resp BP Pulse Ox 05/29/18 08:36 98.2 F 67 18 98/63 96 Vital Signs Temp Pulse Resp BP Pulse Ox 05/29/18 08:36 98.2 F 67 18 98/63 96 05/29/18 04:27 97.7 F 59 16 135/88 97 10/09/18 23:32 98.3 F 58 16 154/95 96 05/28/18 19:37 97.6 F 70 15 124/76 94 05/28/18 17:55 65 16 169/93 97 05/28/18 16:30 97.5 F L 69 19 143/86 96 05/28/18 16:28 97.5 F L 69 19 143/86 96 05/28/18 15:56 68 150/99 05/28/18 15:29 69 151/90 95 05/28/18 15:15 61 15 152/90 96 05/28/18 14:48 67 18 141/95 95 Intake and Output 05/28/18 05/29/18 05/29/18 23:59 07:59 15:59 Intake Total 360 / 360 Output Total 350 / 350 Balance -350 / -350 360 / 360 Intake: Oral 360 / 360 Output: Urine 350 / 350 Other: Meal Breakfast Percent of Meal Consumed 100% Weight 120 kg Patient Weight 05/29/18 23:59 Weight 120 kg General: Conversant, No Apparent Distress HEENT: Atraumatic, Normocephaly, Mucus Membranes Moist Neck: No JVD, Normal carotid pulses Cardiac: Reg Rate and Rhythm, Normal S1 and S2, No Murmur Lungs: Normal Breath Sounds, No Wheeze, Rales, Rhonchi Neuro: Alert and responsive, No focal deficits noted Abdomen: Soft, Non-Tender Skin: Other (right femoral access site healing well. No bleeding, hematoma or ecchymosis noted.) Musculoskeletal: No Chest Wall Tenderness Extremities: No Clubbing, No Cyanosis, No Edema, Normal Pulses Results 05/29/18 09:15 05/29/18 09:15 Lab Results 05/29/18 05/29/18 09:15 09:15 WBC 9.0 Hgb 16.7 Hct 50.0 Plt Count 195 Sodium 136 Potassium 3.8 Chloride 105 Carbon Dioxide 25 BUN 18 Creatinine 0.99 Glucose 151 H Calcium 9.6 Short CBC 05/29/18 Range/Units 09:15 WBC 9.0 (4.3-11.1) K/mcL Hgb 16.7 (12.9-16.9) g/dL Hct 50.0 (37.5-50.1) % Plt Count 195 (140-400) K/mcL Neutrophils # 5.6 (1.6-8.9) K/mcL BMP 05/29/18 Range/Units 09:15 Sodium 136 (136-145) mEq/L Potassium 3.8 (3.5-5.1) mEq/L Chloride 105 (98-107) mEq/L Carbon Dioxide 25 (23-29) mEq/L BUN 18 (6-20) mg/dL Creatinine 0.99 (0.70-1.30) mg/dL Glucose 151 H (70-105) mg/dL Calcium 9.6 (8.6-10.3) mg/dL Impressions Echocardiogram 05/28/18 02:36 Impressions: LVEF 60-65%. Normal LV chamber size, wall thickness and function. Mild left ventricular diastolic dysfunction. Normal right ventricular structure and function. No evidence of pulmonary hypertension. Active Medications Acetaminophen (Tylenol) 650 mg PO Q6HR PRN PRN Reason: Mild Pain/Fever Stop: 11/27/18 02:37 Aspirin (Aspirin) 81 mg PO DAILY FRANKLIN Stop: 11/27/18 09:01 Last Admin: 05/29/18 08:48 Dose: 81 mg Heparin Sodium (Porcine) (Heparin) 5,000 unit SQ Q12HCO FRANKLIN Stop: 11/27/18 06:01 Last Admin: 05/29/18 05:40 Dose: 5,000 unit Metoprolol Tartrate (Lopressor) 25 mg PO BID FRANKLIN Stop: 11/27/18 21:01 Last Admin: 05/29/18 08:48 Dose: 25 mg Naloxone HCl (Narcan) 0.4 mg IVP Q2MIN PRN PRN Reason: SEE COMMENTS Stop: 11/27/18 02:37 Nitroglycerin (Nitroglycerin) 0.4 mg SL Q5MIN PRN PRN Reason: Chest Pain Stop: 11/26/18 21:50 Last Admin: 05/27/18 21:59 Dose: 0.4 mg Rosuvastatin Calcium (Crestor) 40 mg PO HS FRANKLIN Stop: 11/28/18 09:03 Tramadol HCl (Ultram) 50 mg PO Q6HR PRN PRN Reason: Moderate Pain Stop: 11/27/18 02:37 - Imaging and Cardiology Echo: report reviewed Cardiac cath: report reviewed Consult Discharge Plan - Plan Referrals: Corry Wang, PROFESSOR OF ENVIRONMENTAL STUDIES [Primary Care Provider] - Dia Ngo [Family Provider] -
--- NOTE | 2018-05-29 13:13 | Anesthesia Evaluation PreOp ---
Date of Encounter: 05/30/18 Time of Encounter: 07:31 - Past History Planned Operation: CABG Cardiac History: Hyperlipidemia, Other (severe 3 vessel CAD) Pulmonary History: Smoker (1-2 ppd x 45 yrs) SILICATOR History: Denies Any Significant HX Other Medical History: Denies Any Significant HX Anesthesia History: No Prior Anesthetic Complications, Past Anesthesia (appy) Alcohol Use: occasionally Drug use: none Medications and Allergies Rosuvastatin [Crestor] 20 mg PO HS 05/27/18 [History] 3 Allergy/AdvReac Type Severity Reaction Status Date / Time No Known Allergies Allergy Verified 05/27/18 22:00 - Meds/Allergy Pre-op Review Medications Reviewed: Yes Allergies Reviewed: Yes Beta Blockers on Current Med List: Yes Anesthesia Results - Labs 05/30/18 01:19 05/30/18 01:19 - Imaging Additional studies: cath: LV Ventriculography Ejection Method: LV Gram Ejection Fraction: 65% Wall Motion: SARGENT Anterobasal Normal Anterolateral Normal Apical: Normal Inferoapical Normal Inferobasal Normal Coronary Dominance: right Lesion Findings/Interventions * Left Main Coronary Artery There is a 90% stenosis in the Proximal LMCA. Ventricularization and damping of pressure/waveforms with engagement of catheter. No change with IC NTG. * Left Anterior Descending There is a 30% stenosis in the Proximal LAD. There is a 30% stenosis in the Mid LAD. * Circumflex There is a 40% stenosis in the Proximal Circumflex. There is a 50% stenosis in the 2nd Marginal. * Right Coronary Artery There is a 30% stenosis in the proximal RCA. There is a 40% stenosis in the mid RCA. There is a 80% stenosis in the RPL branch. echo: Findings: Study Quality * Technically adequate exam. ECG Findings * Normal sinus rhythm. Left Ventricle * LVEF 60-65%. * Normal LV chamber size, wall thickness and function. * Mild left ventricular diastolic dysfunction. Right Ventricle * Normal right ventricular structure and function. Left Atrium * Mildly dilated left atrium. Right Atrium * Normal right atrial size. Aortic Valve * Trileaflet aortic valve. * Mildly sclerotic aortic valve leaflets. * No aortic stenosis. * No aortic regurgitation. Mitral Valve * Normal mitral valve structure and function. * No mitral stenosis. * Trace mitral regurgitation. Tricuspid Valve * Normal tricuspid valve structure and function. * Trace tricuspid regurgitation. * No evidence of pulmonary hypertension. Pulmonic Valve * Normal pulmonic valve structure and function. * No pulmonic regurgitation. Aorta * Normally sized aortic root. Pericardium * The pericardium appears normal. IVC * Normal IVC dimensions and inspiratory collapse. Pulmonary Artery * Normal visualized portions of the main pulmonary artery. Anesthesia Exam Selected Entries 05/30/18 05:49 Temperature 98.2 F Pulse Rate 61 Respiratory Rate 16 Blood Pressure 155/93 O2 Sat by Pulse Oximetry 97 Oxygen Delivery Method Room Air Weight: 120kg NPO (# of Hours): 8 - HEENT Pupil (Motor): EOMI Mallampati: II Teeth: Edentulous Oral Opening: Greater than 3 - SILICATOR LOC: Oriented SILICATOR Motor: Normal RUE, Normal LUE, Normal RLE, Normal LLE, Normal Face SILICATOR Sensory: Normal: RUE, LUE, RLE, LLE, Face - Cardiac Rhythm: Regular Murmur: None - Pulmonary Breath Sounds: bilateral Clear Respiratory Effort: Symmetrical Anesthesia Assess/Plan ASA Score: 4 Modified Jorge Luis Scale for Level of Consciousness: Cooperative, oriented, and tranquil Anesthetic Plan: General Monitoring Plan: Standard Monitors, A-Line, PAC, RUDDY Recovery Plan: ICU (agrees to GA, lines, RUDDY and blood products)
--- NOTE | 2018-05-29 15:05 | Cardiothoracic Progress Note ---
Date of Encounter: 05/29/18 Time of Encounter: 15:03 - Assessment and plan (1) CAD (coronary artery disease) Current Visit: Yes Status: Acute The assessment and plan as outlined above was discussed with the patient and/or family members who expressed understanding and agreement. All questions were answered. The patient has a 90% left main lesion and is scheduled for open heart surgery tomorrow. Operative consent was obtained. Risks of surgery include , infection, stroke, myocardial infarction, bleeding, clots around the heart, renal or respiratory failure, acute or chronic graft closure, phrenic nerve injury and sternal dehiscence. The procedure, its risks, benefits and alternatives were explained and he wishes to proceed. He and his family have no questions. Qualifiers: Coronary Disease-Associated Artery/Lesion type: [place] artery [place] vs. transplanted heart: [place] heart Associated angina: with unstable angina Qualified Code(s): I25.110 - Atherosclerotic heart disease of [place] coronary artery with unstable angina pectoris - Subjective Interval history: The patient has had no chest pain and no angina. Vital Signs, Last 4 Hours Temp Pulse Resp BP Pulse Ox 05/29/18 12:23 97.7 F 57 18 138/88 96 Weight 05/27/18 05/28/18 05/29/18 23:59 23:59 23:59 Weight 118.3 kg 120 kg Lungs are clear to percussion and auscultation. Heart is in a normal sinus rhythm. - Labs 05/29/18 09:15 05/29/18 09:15 Lab Results, Last 24 hours 05/29/18 05/29/18 09:15 09:15 WBC 9.0 Hgb 16.7 Hct 50.0 Plt Count 195 Sodium 136 Potassium 3.8 Chloride 105 Carbon Dioxide 25 BUN 18 Creatinine 0.99 Glucose 151 H Calcium 9.6 Consult Discharge Plan - Plan Referrals: Corry Wang CNP [Primary Care Provider] - Dia Ngo [Family Provider] -
[2018-05-29 16:07] LABS: Estimated Average Glucose 123 mg/dl; Hemoglobin A1C 5.9 %
[2018-05-29 17:12] LABS: Bilirubin,Urine Negative (Negative); Blood,Urine Negative (Negative); Clarity,Urine Clear (Clear); Color,Urine Yellow (Yellow); Glucose,Urine (UA) Normal (Normal); Ketones,Urine Negative (Negative); Leukocyte Esterase,Urine Negative (Negative); Nitrite,Urine Negative (Negative); PH,Urine 6.5 pH Units (5.0-8.0); Protein,Urine Negative (Neg-Trace); Specific Gravity,Urine 1.015 (1.010-1.025); Urobilinogen,Urine Normal (Normal)
[2018-05-29] MEDS: Chlorhexidine Rinse 15 ML MOUTHWASH MM SCH (20:27)
[2018-05-30 01:38] LABS: Basophils # 0.1 K/mcL (0.0-0.2); Basophils % 0.8 %; Eosinophils # 0.3 K/mcL (0.0-0.6); Eosinophils % 2.7 %; Hematocrit 48.8 % (37.5-50.1); Hemoglobin 16.2 g/dL (12.9-16.9); Immature Granulocytes % 0.4 % (0-4); Lymphocytes # 3.3 K/mcL (0.6-4.6); Lymphocytes % 30.4 %; Mean Corpuscular HGB Conc 33.2 g/dL (31.6-35.5); Mean Corpuscular Hemoglobin 30.5 pg (28.0-33.3); Mean Corpuscular Volume 91.9 fL (83.0-100.0); Mean Platelet Volume 10.1 fL (9.4-12.4); Monocytes # 1.1 K/mcL (0.0-1.3); Monocytes % 10.2 %; Neutrophils # 5.9 K/mcL (1.6-8.9); Platelet Count 187 K/mcL (140-400); Red Blood Count 5.31 M/mcL (4.19-5.50); Segmented Neutrophils % 55.5 %
[2018-05-30 01:58] LABS: BUN/Creatinine Ratio 19 (6-26); Blood Urea Nitrogen 17 mg/dL (6-20); Calcium 9.5 mg/dL (8.6-10.3); Carbon Dioxide 23 mEq/L (23-29); Chloride 107 mEq/L (98-107); Glucose 108 mg/dL (70-105); Osmolality,Calculated 286 (280-300); Potassium 3.9 mEq/L (3.5-5.1); Sodium 137 mEq/L (136-145); eGFR For Non-African Americans > 60 (> 60)
[2018-05-30] MEDS: Chlorhexidine Rinse 15 ML MOUTHWASH MM SCH ×2 (05:58→20:42)
[2018-05-30] MEDS ORDERED: Dextrose 50 % in Water (Vial) 30 ML, Sodium Bicarbonate 20 MEQ, Lidocaine 1% 5 ML, Insu... TH ONE ×3 (06:00)
[2018-05-30] MEDS ORDERED: Aspirin 81 MG TAB.CHEW PO ONE (06:00)
[2018-05-30] MEDS ORDERED: Heparin 15,000 UNIT in 0.9 % Sodium Chloride 500 ML IV ONE (06:00)
[2018-05-30] MEDS ORDERED: Insulin Human Regular 100 UNIT in 0.9 % Sodium Chloride 100 ML IV PRN ×2 (06:00→23:11)
[2018-05-30] MEDS ORDERED: Norepinephrine 4 MG in D5% in Water 250 ML IVC PRN (06:00)
[2018-05-30] MEDS ORDERED: Dextrose 50 % in Water (Vial) 30 ML, Sodium Bicarbonate 20 MEQ, Potassium Chloride 15 M... TH ONE (06:00)
[2018-05-30] MEDS ORDERED: Verapamil 5 MG/2 ML VIAL ONE (06:48)
[2018-05-30] MEDS ORDERED: Nitroglycerin 25 MG/250 ML INFUS..BTL IVC ONE (06:49)
[2018-05-30] MEDS ORDERED: *HR* Rocuronium Bromide 50 MG/5 ML VIAL ONE ×2 (06:54→08:48)
[2018-05-30] MEDS ORDERED: *HR* PHENYLEPHRINE 1,000 MCG/10 ML SYRINGE IVP ONE (06:54)
[2018-05-30] MEDS ORDERED: *HR* Etomidate 20 MG/10 ML AMPUL IVP ONE (06:54)
[2018-05-30] MEDS ORDERED: Famotidine 20 MG/2 ML VIAL ONE (06:54)
[2018-05-30] MEDS ORDERED: Protamine Sulfate 250 MG/25 ML VIAL IVP ONE (06:55)
[2018-05-30] MEDS ORDERED: Tranexamic Acid 1,000 MG/10 ML VIAL ONE ×2 (06:55→08:57)
[2018-05-30] MEDS ORDERED: *HR* FentaNYL (PF) 1,000 MCG/20 ML VIAL ONE (07:00)
[2018-05-30] MEDS ORDERED: CeFAZolin Syr 3,000MG/30 ML 3,000 MG/30 ML SYRINGE IVPB ONE (07:00)
[2018-05-30] MEDS ORDERED: *HR* Midazolam HCl 5 MG/5 ML VIAL IVP ONE (07:00)
--- NOTE | 2018-05-30 07:36 | Internal Med Progress Note ---
<Vladimir Ashraf - Last Filed: 05/30/18 13:42> Hospitalist Progress Note - Encounter Date of Encounter: 05/30/18 Time of Encounter: 07:25 - Subjective Interval History: Mr. Velasquez is a 57M with PMH of hyperlipidemia and significant family hx of CAD with premature . He originally presented to the ED on 05/27 complaining of sudden onset substernal chest pain and pressure associated with nausea, diaphoresis, shortness of breath, and radiation to his left arm. He also experienced diaphoresis and dyspnea. The chest pain had been occurring for the past 24 hours and was relieved after 3 doses of Nitroglycerin. EKG showed normal sinus rhythm. CXR revealed possible left lower lobe PNA. Serial troponins were negative. Cardiology was consulted. Echo was normal. Nuclear stress test was normal. Underwent LHC on 05/28 which revealed triple vessel disease with Left main disease. CABG today. Pt seen in hospital bed prior to leaving for surgery. In no acute distress. No new or acute complaints. Denies any current chest pain or shortness of breath. Denies fever, chills, abdominal pain, nausea, vomiting, headache, numbness, or tingling. - Exam Vitals: Temp Pulse Resp BP Pulse Ox 98.2 F 61 16 155/93 97 05/30/18 05:49 05/30/18 05:49 05/30/18 05:49 05/30/18 05:49 05/30/18 05:49 Exam: Constitutional: well developed, well nourished. no acute distress Head: normocephalic and atraumatic Eyes: PERRL, EOMI. no scleral icterus Neck: supple, trachea midline. no lymphadenopathy Lungs: CTA bilaterally. non-labored breathing. No wheezes, rales, or rhonchi. Heart: RRR +s1 +s2. no murmurs, clicks, or rubs GI: abdomen soft, non-tender, non-distended Extremities: radial pulses palpable and symmetrical. no cyanosis or edema. Neuro: A&Ox3. no focal deficits. no speech difficulty or abnormality Skin: warm, dry, intact - Assessment and Plan (1) CAD (coronary artery disease) Current Visit: Yes Status: Acute Assessment and Plan: Plan as above for CABG Continue Crestor 40mg qd in light of strong family hx of CAD with premature and significant hyperlipidemia as seen on 05/28 labs (2) Triple vessel coronary artery disease Current Visit: Yes Status: Acute Assessment and Plan: [facility] on 05/28 revealed triple vessel CAD with left main disease. CABG today. Continue ASA Contine Crestor to 40mg qd Continue Metoprolol 25mg BID DVT Prophylaxis: Holding. Will resume after CABG and at CT surg's discretion - Time Spent with Patient Total time spent is greater than 50% in coordination of care (as documented) at patient's floor/unit and/or counseling patient: Internal Medicine: Result - Labs CBC & Chem 7: 05/30/18 12:43 05/30/18 12:43 Labs: Short CBC 05/29/18 05/30/18 Range/Units 09:15 01:19 WBC 9.0 10.7 (4.3-11.1) K/mcL Hgb 16.7 16.2 (12.9-16.9) g/dL Hct 50.0 48.8 (37.5-50.1) % Plt Count 195 187 (140-400) K/mcL Neutrophils # 5.6 5.9 (1.6-8.9) K/mcL BMP 05/29/18 05/30/18 09:15 01:19 Sodium 136 137 Potassium 3.8 3.9 Chloride 105 107 Carbon Dioxide 25 23 BUN 18 17 Creatinine 0.99 0.88 Glucose 151 H 108 H Calcium 9.6 9.5 Urine 05/29/18 Range/Units 17:02 Urine Color Yellow (Yellow) Urine Clarity Clear (Clear) Urine pH 6.5 (5.0-8.0) pH Units Ur Specific [place] 1.015 (1.010-1.025) Urine Protein Negative (Neg-Trace) mg/dL Urine Glucose (UA) Normal (Normal) mg/dL - ABG Interpretation ABG results: PT/INR, D-dimer PT 11.6 Seconds (9.4-12.1) 05/28/18 03:46 Consult Discharge Plan - Plan Referrals: Corry Wang CNP [Primary Care Provider] - Dia Ngo [Family Provider] - <Hollie Hernandez - Last Filed: 05/30/18 17:29> Hospitalist Progress Note - Encounter Date of Encounter: 05/30/18 - Exam Vitals: Temp Pulse Resp BP Pulse Ox 98.2 F 61 16 155/93 95 05/30/18 05:49 05/30/18 05:49 05/30/18 16:42 05/30/18 05:49 05/30/18 16:42 - Assessment and Plan (1) CAD (coronary artery disease) Current Visit: Yes Status: Acute (2) Triple vessel coronary artery disease Current Visit: Yes Status: Acute - Time Spent with Patient Total time spent is greater than 50% in coordination of care (as documented) at patient's floor/unit and/or counseling patient: Internal Medicine: Result - Labs CBC & Chem 7: 05/30/18 12:43 05/30/18 12:43 Labs: Short CBC 05/30/18 05/30/18 05/30/18 Range/Units 10:13 10:35 12:43 WBC 14.7 H (4.3-11.1) K/mcL Hgb 12.6 L D (12.9-16.9) g/dL Hct 43.0 35.0 L 37.3 L (37.5-50.1) % Plt Count 93 L D (140-400) K/mcL Neutrophils # 12.1 H (1.6-8.9) K/mcL BMP 05/30/18 05/30/18 05/30/18 10:13 10:35 10:35 Sodium Potassium Chloride Carbon Dioxide BUN Creatinine Glucose 146 H 184 H TNP Calcium 05/30/18 12:43 Sodium 139 Potassium 3.8 Chloride 109 H Carbon Dioxide 27 BUN 18 Creatinine 0.99 Glucose 87 Calcium 8.6 - ABG Interpretation ABG results: ABG ABG pH 7.35 pH Units (7.32-7.45) 05/30/18 15:40 ABG pCO2 46 mmHg (35-45) H 05/30/18 15:40 ABG pO2 91 mmHg (85-104) D 05/30/18 15:40 ABG O2 Saturation 97 % (95-98) 05/30/18 15:40 PT/INR, D-dimer PT 15.2 Seconds (9.4-12.1) H 05/30/18 12:43 - Impressions Impressions Chest X-Ray 05/30/18 12:05 IMPRESSION: Lines and tubes in satisfactory position status post recent open heart surgery. No evidence of pneumothorax. D/ / Ron Cordova MD / Ron Cordova MD Interpreting Provider: Ron Cordova MD X-Ray 05/30/18 12:05 IMPRESSION: Enteric tube in the stomach. No bowel obstruction. D/ / Ron Cordova MD / Ron Cordova MD Interpreting Provider: Ron Cordova MD - Attending Attestation Seen and assessed. Agree with plan per resident Plan Triple vessel disease. For CABG today <Vladimir Ashraf A - Last Filed: 05/30/18 13:42> (1) CAD (coronary artery disease) Qualifiers: Coronary Disease-Associated Artery/Lesion type: [place] artery [place] vs. transplanted heart: [place] heart Associated angina: with unstable angina Qualified Code(s): I25.110 - Atherosclerotic heart disease of [place] coronary artery with unstable angina pectoris <Hollie Hernandez A - Last Filed: 05/30/18 17:29> (1) CAD (coronary artery disease) Qualifiers: Coronary Disease-Associated Artery/Lesion type: [place] artery [place] vs. transplanted heart: [place] heart Associated angina: with unstable angina Qualified Code(s): I25.110 - Atherosclerotic heart disease of [place] coronary artery with unstable angina pectoris
[2018-05-30] MEDS ORDERED: Lidocaine Jelly 6ml 1 APPL/6 ML JEL.PF.APP ONE (08:15)
[2018-05-30] MEDS ORDERED: EPHEDrine 50 MG/ML VIAL ONE (09:06)
[2018-05-30 09:42] LABS: ABG Base Excess -3 mEq/L (-2 to 3); ABG HCO3 23 mEq/L (21-27); ABG Oxygen Saturation 97 % (95-98); ABG PCO2 44 mmHg (35-45); ABG PH 7.33 pH Units (7.32-7.45); ABG PO2 98 mmHg (85-104); ABG TCO2 24 mEq/L (20-26)
--- NOTE | 2018-05-30 09:53 | Anesthesia Procedures ---
Date of Encounter: 05/30/18 Time of Encounter: 07:50 Procedures: Anesthesia - Arterial Line Consent obtained: written consent Time out performed: Yes Sedation: Versed (mg): 3 Sedation: Fentanyl (mcg): 150 Supplemental Oxygen via Nasal Cannula (L/min): 2 Local Anesthetic: Lidocaine 1% Amount of Anesthetic used (mls): 1 Size (Gauge): 20 Length (inches): 5 Technique Used: sterile prep, guide wire technique, direct puncture technique Post-Procedure: line taped into place, dry sterile dressing placed Patient tolerated procedure: well, no complications Complications: none Site: Radial L - Central Line Placement Right IJ Consent obtained: written consent Time out performed: Yes Patient placed on monitor/pulse ox: Yes prep: mask, gown, gloves Central line prep: Chlorhexidine scrub Ultrasound used for placement: Yes Technique: Seldinger Lumen Inserted: Introducer Post procedure: sutured in place, good blood return, all ports aspirated, flushed, capped, sterile dressing applied Patient tolerated procedure: well, no complications Complications: none Comments: introducer placed easily, swan placed without arrythmias, wedge approx. 58cm
[2018-05-30 10:27] LABS: ABG Base Excess 1 mEq/L (-2 to 3); ABG HCO3 26 mEq/L (21-27); ABG Oxygen Saturation 100 % (95-98); ABG PCO2 42 mmHg (35-45); ABG PH 7.41 pH Units (7.32-7.45); ABG PO2 384 mmHg (85-104); ABG TCO2 28 mEq/L (20-26)
[2018-05-30 10:27] LABS: ABG Base Excess 1 mEq/L (-2 to 3); ABG HCO3 25 mEq/L (21-27); ABG Oxygen Saturation 100 % (95-98); ABG PCO2 39 mmHg (35-45); ABG PH 7.42 pH Units (7.32-7.45); ABG PO2 361 mmHg (85-104); ABG TCO2 26 mEq/L (20-26)
[2018-05-30 10:52] LABS: ABG Base Excess 2 mEq/L (-2 to 3); ABG HCO3 26 mEq/L (21-27); ABG Oxygen Saturation 100 % (95-98); ABG PCO2 39 mmHg (35-45); ABG PH 7.43 pH Units (7.32-7.45); ABG PO2 319 mmHg (85-104); ABG TCO2 27 mEq/L (20-26)
[2018-05-30 10:54] LABS: ABG Base Excess 2 mEq/L (-2 to 3); ABG Chloride 100 mEq/L (98-107); ABG HCO3 27 mEq/L (21-27); ABG Ionized Calcium 1.02 mmol/L (1.15-1.35); ABG Oxygen Saturation 100 % (95-98); ABG PCO2 41 mmHg (35-45); ABG PH 7.43 pH Units (7.32-7.45); ABG PO2 314 mmHg (85-104); ABG TCO2 28 mEq/L (20-26)
[2018-05-30 11:19] LABS: ABG Base Excess 1 mEq/L (-2 to 3); ABG Chloride 101 mEq/L (98-107); ABG Glucose 142 mg/dL (60-95); ABG HCO3 26 mEq/L (21-27); ABG Ionized Calcium 1.04 mmol/L (1.15-1.35); ABG Oxygen Saturation 100 % (95-98); ABG PCO2 41 mmHg (35-45); ABG PH 7.41 pH Units (7.32-7.45); ABG PO2 283 mmHg (85-104); ABG TCO2 27 mEq/L (20-26)
[2018-05-30] MEDS ORDERED: Albumin Human 5% 50.0 GM/1,000 ML VIAL ONE (11:45)
[2018-05-30 11:53] LABS: ABG Base Excess 0 mEq/L (-2 to 3); ABG Chloride 104 mEq/L (98-107); ABG Glucose 102 mg/dL (60-95); ABG HCO3 25 mEq/L (21-27); ABG Ionized Calcium 1.38 mmol/L (1.15-1.35); ABG Oxygen Saturation 94 % (95-98); ABG PCO2 41 mmHg (35-45); ABG PH 7.39 pH Units (7.32-7.45); ABG PO2 72 mmHg (85-104); ABG TCO2 26 mEq/L (20-26)
[2018-05-30] MEDS ORDERED: *HR* Dextrose 50 % in Water (Syg) 50 ML SYRINGE IVP PRN (12:05)
[2018-05-30] MEDS ORDERED: Insulin Regular, Human 100 UNIT/ML IV PRN (12:05)
[2018-05-30] MEDS ORDERED: Ondansetron 4 MG/2 ML VIAL IVP PRN (12:05)
[2018-05-30] MEDS ORDERED: Potassium Chloride 40 MEQ/200 ML BAG IVPB PRN (12:05)
[2018-05-30] MEDS ORDERED: *HR* Promethazine 25 MG/ML VIAL IVP PRN (12:05)
[2018-05-30] MEDS ORDERED: Insulin Human Regular 100 UNIT in 0.9 % Sodium Chloride 100 ML IVC SCH (12:15)
[2018-05-30] MEDS ORDERED: Norepinephrine 4 MG in D5% in Water 250 ML IVC SCH (12:15)
[2018-05-30 12:39] LABS: ABG Base Excess 0 mEq/L (-2 to 3); ABG HCO3 27 mEq/L (21-27); ABG Oxygen Saturation 100 % (95-98); ABG PCO2 51 mmHg (35-45); ABG PH 7.33 pH Units (7.32-7.45); ABG PO2 300 mmHg (85-104); ABG TCO2 28 mEq/L (20-26); Blood Gas Modality ASSIST CONTROL; Blood Gas PEEP 5 cm H2O; Blood Gas Respiration Rate 12; Blood Gas VT 520 cc
[2018-05-30] MEDS ORDERED: niCARdipine 40 MG/200 ML MLS IVC ONE (12:45)
[2018-05-30 12:52] LABS: Basophils % 0.3 %; Eosinophils # 0.2 K/mcL (0.0-0.6); Hematocrit 37.3 % (37.5-50.1); Hemoglobin 12.6 g/dL (12.9-16.9); Immature Granulocytes % 0.7 % (0-4); Immature Platelets 4.8 % (1.1-6.1); Lymphocytes # 1.7 K/mcL (0.6-4.6); Lymphocytes % 11.5 %; Mean Corpuscular HGB Conc 33.8 g/dL (31.6-35.5); Mean Corpuscular Hemoglobin 31.2 pg (28.0-33.3); Mean Corpuscular Volume 92.3 fL (83.0-100.0); Mean Platelet Volume 10.1 fL (9.4-12.4); Monocytes # 0.6 K/mcL (0.0-1.3); Monocytes % 4.2 %; Neutrophils # 12.1 K/mcL (1.6-8.9); Red Blood Count 4.04 M/mcL (4.19-5.50); Segmented Neutrophils % 82.3 %
[2018-05-30] MEDS: niCARdipine 40 MG/200 ML MLS IVC SCH ×2 (12:52→20:35)
[2018-05-30 12:53] LABS: Platelet Count 93 K/mcL (140-400)
[2018-05-30 13:01] LABS: INR 1.4; Prothrombin Time 15.2 Seconds (9.4-12.1)
[2018-05-30 13:03] LABS: Activated Partial Thrombo Time 32.9 Seconds (26.0-36.0)
[2018-05-30 13:05] LABS: BUN/Creatinine Ratio 18 (6-26); Blood Urea Nitrogen 18 mg/dL (6-20); Calcium 8.6 mg/dL (8.6-10.3); Carbon Dioxide 27 mEq/L (23-29); Chloride 109 mEq/L (98-107); Glucose 87 mg/dL (70-105); Magnesium 2.6 mg/dL (1.6-2.6); Osmolality,Calculated 289 (280-300); Potassium 3.8 mEq/L (3.5-5.1); Sodium 139 mEq/L (136-145); eGFR For Non-African Americans > 60 (> 60)
[2018-05-30] MEDS: *HR* FentaNYL (PF) 100 MCG/2 ML VIAL IVP PRN ×3 (13:21→23:03)
[2018-05-30] MEDS: *HR* OxyCODONE/APAP 5/325 TABLET PO PRN ×2 (13:23→20:41)
[2018-05-30] MEDS: Ringers Solution, Lactated 1,000 ML IVC SCH (13:38)
[2018-05-30] MEDS: Nitroglycerin 25 MG/250 ML INFUS..BTL IVC SCH ×2 (14:00→19:16)
[2018-05-30] MEDS ORDERED: Albumin Human 25% 25 GM/100 ML IV.SOLN IV ONE (14:29)
[2018-05-30] MEDS ORDERED: Mannitol 25% vial 12.5 GM/50 ML VIAL IVP ONE (14:29)
[2018-05-30] MEDS ORDERED: Sodium Bicarbonate 50 MEQ/50 ML VIAL IVC ONE (14:29)
[2018-05-30] MEDS ORDERED: *HR* Magnesium Sulfate 2 GM/50 ML PIGGYBACK IVPB ONE (14:29)
[2018-05-30] MEDS ORDERED: *HR* Heparin 10,000 UNIT/10 ML VIAL IV ONE (14:29)
[2018-05-30] MEDS ORDERED: Tranexamic Acid 1,000 MG/10 ML VIAL IVPB ONE (14:29)
[2018-05-30] MEDS ORDERED: Lidocaine 2% Syringe 100 MG/5 ML IV ONE (14:29)
[2018-05-30] MEDS ORDERED: *HR* Phenylephrine 10 MG/ML VIAL IVC ONE (14:29)
[2018-05-30] MEDS: Aspirin 81 MG TAB.CHEW PO SCH (15:17)
--- NOTE | 2018-05-30 15:37 | Operative Note ---
Date of procedure: 05/30/18 Was there an greenhouse assistant present: Yes Slitter Creaser Slotter Helper: Dean Marquez Estimated blood loss (cc): 750 Specimen: none Condition: critical Disposition: ICU Procedure in Detail: Preoperative diagnosis. Coronary artery disease. Postoperative diagnosis. Same. Procedures. Coronary artery bypass grafting 3 with the left internal mammary artery to the LAD and saphenous vein grafts to the diagonal branch and obtuse marginal branch of the circumflex. Surgeon. Dr. Sylvester Gurrola. The patient is a 57-year-old gentleman who does have a history of smoking. Cardiac catheterization revealed a 90% left main lesion and he was referred for surgery. The patient was brought to the operating room where he was prepped and draped in standard fashion. The right greater saphenous vein was harvested from the right need to the right groin. This was done through 2 small incisions using the scope. A standard median sternotomy was performed. The left internal mammary artery retractor was inserted and the left internal mammary artery was harvested in standard fashion using the Bovie electrocoagulation. Following this, the mammary retractor was removed and the standard sternal business development representative was inserted. Pericardium was opened in the midline and suspended with 2-0 silk stay sutures. A double pursestring of 200 [place] was placed in the aorta for the aortic cannulation site. A pursestring of 20 [place] was placed in the right atrial appendage for the venous uptake. The patient was heparinized. The aorta was cannulated without difficulty. 2 stage venous uptake cannula was inserted through the right atrial appendage. A pursestring of 3-0 silk was placed in the aorta and the cardioplegia needle was inserted through here. This was also used is an active and passive aortic vent. The patient was placed on cardio pony bypass and cooled to 33.2 degrees. The aorta was crossclamped and a liter of antegrade cardioplegia was given. Topical cooling with iced saline slush was also used. Attention was first turned to the circumflex. The obtuse marginal branch was dissected free with the [place] blade and opened with the [place] blade and the Sánchez scissors. This had a lumen of 1-1/2 mm and was relatively free of disease. A standard end-to- side anastomosis was constructed using the saphenous vein and a 7-0 Prolene. When this is completed, the patient received an additional dose of antegrade cardioplegia. Attention was turned to the intermediate branch. This was too small and diffusely diseased for grafting. The first diagonal branch was dissected free with the [place] blade and opened with the [place] blade and the Sánchez scissors. This had a lumen of 1.5 mm and was relatively free of disease. A standard end-to-side anastomosis was constructed using the saphenous vein and a 7-0 Prolene. When this is completed, the patient received her last dose of antegrade cardioplegia. The LAD was dissected free with the [place] blade and opened with the [place] blade and the Sánchez scissors. This had a lumen of 1- 1/2 mm with mild to moderate plaquing along all sy. A standard end-to-side anastomosis was constructed using the mammary artery and a 7-0 Prolene. When this is completed, the previously placed bulldog clamp was removed. Hemostasis was good and the hemodynamics were good. Cross-clamp was removed and rewarming was begun. Total cross-clamp time was 50 minutes. A side-biting clamp was placed on the aorta and the cardioplegia needle was removed. 2 holes were made in the aorta using the [place] blade and the 4.4 mm aortic punch. 2 proximal anastomoses were constructed in standard fashion using the saphenous veins and a 5-0 Prolene. When this is completed, the side-biting clamp was removed. The grafts were de-aired using #25-gauge needle. The previously placed bulldog clamps were removed and the proximal anastomoses were marked with the marker from [employer] sponge. I did place some FloSeal and fibrillar along the proximal and distal anastomoses. The periventricular pacing wires was left. A total of 3 chest tubes were left. A very driving a chest tube to the left pleural space. A 32 right angle chest tube to the pericardial well. A 42 mediastinal chest tube. The patient was weaned from bypass and decannulated. Protamine was given. Hemostasis was good and hemodynamics were good. Pericardium was loosely closed with interrupted 2-0 silk sutures. We did use platelet rich and platelet poor plasma to the sternum and tissues above the sternum. Sternum was closed with #7 sternal wires in simple and [id number] fashion. Fascia was run with a #1 Vicryl. Subcutaneous tissues with a 2-0 Vicryl. Skin was closed with a 3-0 Vicryl subcuticular stitch. The patient tolerated procedure well and was returned intensive care unit in stable condition. Total bypass time 93 minutes. Total cross-clamp time 50 minutes. He been cooled to 33.2 degrees.
[2018-05-30 15:46] LABS: ABG Base Excess -1 mEq/L (-2 to 3); ABG HCO3 25 mEq/L (21-27); ABG Oxygen Saturation 97 % (95-98); ABG PCO2 46 mmHg (35-45); ABG PH 7.35 pH Units (7.32-7.45); ABG PO2 91 mmHg (85-104); ABG TCO2 27 mEq/L (20-26); Blood Gas Modality CPAP/PS; Blood Gas PEEP 5 cm H2O; Blood Gas Pressure Support 5 cm H2O
[2018-05-30] MEDS ORDERED: CeFAZolin Syr 3,000MG/30 ML 3,000 MG/30 ML SYRINGE IVPB SCH (16:00)
[2018-05-30] MEDS: ceFAZolin 3,000 MG in 0.9 % Sodium Chloride 100 ML IVPB SCH ×2 (17:20→23:22)
[2018-05-30 20:15] LABS: ABG Base Excess 0 mEq/L (-2 to 3); ABG HCO3 27 mEq/L (21-27); ABG Oxygen Saturation 97 % (95-98); ABG PCO2 50 mmHg (35-45); ABG PH 7.34 pH Units (7.32-7.45); ABG PO2 95 mmHg (85-104); ABG TCO2 29 mEq/L (20-26)
[2018-05-31] MEDS: *HR* OxyCODONE/APAP 5/325 TABLET PO PRN ×5 (01:37→22:14)
[2018-05-31] MEDS: Ringers Solution, Lactated 1,000 ML IVC SCH (02:05)
[2018-05-31] MEDS: Nitroglycerin 25 MG/250 ML INFUS..BTL IVC SCH (02:05)
[2018-05-31] MEDS: *HR* FentaNYL (PF) 100 MCG/2 ML VIAL IVP PRN ×3 (03:56→09:51)
[2018-05-31] MEDS: niCARdipine 40 MG/200 ML MLS IVC SCH (03:56)
[2018-05-31 04:03] LABS: Basophils % 0.3 %; Hematocrit 36.5 % (37.5-50.1); Hemoglobin 12.1 g/dL (12.9-16.9); Immature Granulocytes % 0.6 % (0-4); Lymphocytes # 1.6 K/mcL (0.6-4.6); Lymphocytes % 9.7 %; Mean Corpuscular HGB Conc 33.2 g/dL (31.6-35.5); Mean Corpuscular Hemoglobin 30.6 pg (28.0-33.3); Mean Corpuscular Volume 92.4 fL (83.0-100.0); Mean Platelet Volume 10.5 fL (9.4-12.4); Monocytes # 1.5 K/mcL (0.0-1.3); Monocytes % 9.3 %; Neutrophils # 12.8 K/mcL (1.6-8.9); Platelet Count 129 K/mcL (140-400); Red Blood Count 3.95 M/mcL (4.19-5.50); Red Cell Distribution Width 12.3 % (11.5-14.5); Segmented Neutrophils % 80.1 %
[2018-05-31 04:09] LABS: BUN/Creatinine Ratio 21 (6-26); Blood Urea Nitrogen 19 mg/dL (6-20); Calcium 8.4 mg/dL (8.6-10.3); Carbon Dioxide 24 mEq/L (23-29); Chloride 105 mEq/L (98-107); Glucose 145 mg/dL (70-105); INR 1.2; Magnesium 1.9 mg/dL (1.6-2.6); Osmolality,Calculated 283 (280-300); Potassium 3.9 mEq/L (3.5-5.1); Prothrombin Time 13.5 Seconds (9.4-12.1); Sodium 134 mEq/L (136-145); eGFR For Non-African Americans > 60 (> 60)
[2018-05-31 04:12] LABS: Activated Partial Thrombo Time 30.6 Seconds (26.0-36.0)
--- NOTE | 2018-05-31 09:29 | Cardiothoracic Progress Note ---
Date of Encounter: 05/31/18 Time of Encounter: 09:26 - Assessment and plan (1) CAD (coronary artery disease) Current Visit: Yes Status: Acute We will leave the Pina catheter until tomorrow per the patient's request. He did have a slight texture just past the meatus which was dilated. He wishes that the Pina remain until the chest tubes are removed. We will transfer the patient to the floor. Qualifiers: Coronary Disease-Associated Artery/Lesion type: [place] artery [place] vs. transplanted heart: [place] heart Associated angina: with unstable angina Qualified Code(s): I25.110 - Atherosclerotic heart disease of [place] coronary artery with unstable angina pectoris - Subjective Interval history: The patient complains of mild postoperative pain and lower back pain. Vital Signs, Last 4 Hours Temp Pulse Resp BP Pulse Ox 05/31/18 09:00 112 18 121/66 93 05/31/18 08:00 99.1 F 106 16 121/66 94 05/31/18 07:39 18 96 05/31/18 07:26 105 05/31/18 07:00 99.2 F 104 18 104/67 93 05/31/18 06:00 99.5 F 106 14 127/57 96 Oxgyen Flow Rate Oxygen Flow Rate (LPM) 2 Clinical Data, last 8 Hours Output, Chest Tube Drainage 10 Amount [Mediastinal #1] Output, Chest Tube Drainage 0 Amount [Mediastinal #1] Output, Chest Tube Drainage 10 Amount [Mediastinal #1] Output, Chest Tube Drainage 10 Amount [Mediastinal #1] Output, Chest Tube Drainage 10 Amount [Mediastinal #1] Output, Chest Tube Drainage 10 Amount [Mediastinal #1] Output, Chest Tube Drainage 0 Amount [Mediastinal #2] Output, Chest Tube Drainage 0 Amount [Mediastinal #2] Output, Chest Tube Drainage 10 Amount [Mediastinal #2] Output, Chest Tube Drainage 45 Amount [Mediastinal #2] Output, Chest Tube Drainage 0 Amount [Mediastinal #2] Output, Chest Tube Drainage 14 Amount [Mediastinal #2] Output, Chest Tube Drainage 10 Amount [Mediastinal #3] Output, Chest Tube Drainage 0 Amount [Mediastinal #3] Output, Chest Tube Drainage 10 Amount [Mediastinal #3] Output, Chest Tube Drainage 15 Amount [Mediastinal #3] Output, Chest Tube Drainage 8 Amount [Mediastinal #3] Output, Chest Tube Drainage 10 Amount [Mediastinal #3] Weight 10/06/0605/30/18 05/31/18 23:59 23:59 23:59 Weight 120 kg 120.8 kg Lungs are clear to percussion and auscultation. Heart is in a normal sinus rhythm. All incisions are healing well without signs of infection and the sternum is stable. Chest tube drainage is minimal and there is no air leak. - Labs 05/31/18 03:31 05/31/18 03:31 Lab Results, Last 24 hours 05/30/18 05/30/18 05/30/18 10:13 10:13 10:35 WBC Hgb Hct 43.0 35.0 L Plt Count INR APTT Sodium Potassium Chloride Carbon Dioxide BUN Creatinine Glucose 146 H Calcium Magnesium 05/30/18 05/30/18 05/30/18 10:35 10:35 12:43 WBC 14.7 H Hgb 12.6 L D Hct 37.3 L Plt Count 93 L D INR APTT Sodium Potassium Chloride Carbon Dioxide BUN Creatinine Glucose 184 H TNP Calcium Magnesium 05/30/18 05/30/18 05/31/18 12:43 12:43 03:31 WBC 15.9 H Hgb 12.1 L Hct 36.5 L Plt Count 129 L INR 1.4 APTT 32.9 Sodium 139 Potassium 3.8 Chloride 109 H Carbon Dioxide 27 BUN 18 Creatinine 0.99 Glucose 87 Calcium 8.6 Magnesium 2.6 05/31/18 05/31/18 03:31 03:31 WBC Hgb Hct Plt Count INR 1.2 APTT 30.6 Sodium 134 L Potassium 3.9 Chloride 105 Carbon Dioxide 24 BUN 19 Creatinine 0.89 Glucose 145 H Calcium 8.4 L Magnesium 1.9 - VTE Documentation of Mechanical Device: Graduated compression elastic hosiery Consult Discharge Plan - Plan Referrals: Corry Wang CNP [Primary Care Provider] - Dia Ngo [Family Provider] -
--- NOTE | 2018-05-31 09:32 | Internal Med Progress Note ---
<AndriyVladimir A - Last Filed: 05/31/18 16:23> Hospitalist Progress Note - Encounter Date of Encounter: 05/31/18 Time of Encounter: 10:45 - Subjective Interval History: Mr. Velasquez is a 57M with PMH of hyperlipidemia and significant family hx of CAD with premature . He originally presented to the ED on 05/27 complaining of sudden onset substernal chest pain and pressure associated with nausea, diaphoresis, shortness of breath, and radiation to his left arm. He also experienced diaphoresis and dyspnea. The chest pain had been occurring for the past 24 hours and was relieved after 3 doses of Nitroglycerin. EKG showed normal sinus rhythm. CXR revealed possible left lower lobe PNA. Serial troponins were negative. Cardiology was consulted. Echo was normal. Nuclear stress test was normal. Underwent LHC on 05/28 which revealed triple vessel disease with Left main disease. Underwent 3 vessel CABG yesterday. Pt seen and examined at bedside. Mild distress. No new or acute complaints. States he feels "tired". Endorses pain is well controlled with medication. Denies fever, chills, abdominal pain, nausea, vomiting, headache, numbness, or tingling. - Exam Vitals: Temp Pulse Resp BP Pulse Ox 99.1 F 112 18 121/66 93 05/31/18 08:00 05/31/18 09:00 05/31/18 09:00 05/31/18 09:00 05/31/18 09:00 Exam: Constitutional: well developed, well nourished. no acute distress Head: normocephalic and atraumatic Eyes: PERRL, EOMI. no scleral icterus Neck: supple, trachea midline. no lymphadenopathy Lungs: CTA bilaterally. non-labored breathing. No wheezes, rales, or rhonchi. Heart: RRR +s1 +s2. no murmurs, clicks, or rubs GI: abdomen soft, non-tender, non-distended Extremities: radial pulses palpable and symmetrical. no cyanosis or edema. Neuro: A&Ox3. no focal deficits. no speech difficulty or abnormality Skin: warm, dry, intact. Midline sternotomy incision clean, dry, and intact with dressing in place. - Assessment and Plan (1) CAD (coronary artery disease) Current Visit: Yes Status: Acute Assessment and Plan: Plan as above for CABG Continue Crestor 40mg qd in light of strong family hx of CAD with premature and significant hyperlipidemia as seen on 05/28 labs (2) Triple vessel coronary artery disease Current Visit: Yes Status: Acute Assessment and Plan: C on 05/28 revealed triple vessel CAD with left main disease. CABG yesterday Continue ASA Contine Crestor 40mg qd Continue Metoprolol 25mg BID Management of post-op care per CT surgery DVT Prophylaxis: SQ Heparin - Time Spent with Patient Total time spent is greater than 50% in coordination of care (as documented) at patient's floor/unit and/or counseling patient: Internal Medicine: Result - Labs CBC & Chem 7: 05/31/18 03:31 05/31/18 03:31 Labs: Short CBC 05/30/18 05/30/18 05/30/18 Range/Units 10:13 10:35 12:43 WBC 14.7 H (4.3-11.1) K/mcL Hgb 12.6 L D (12.9-16.9) g/dL Hct 43.0 35.0 L 37.3 L (37.5-50.1) % Plt Count 93 L D (140-400) K/mcL Neutrophils # 12.1 H (1.6-8.9) K/mcL 05/31/18 Range/Units 03:31 WBC 15.9 H (4.3-11.1) K/mcL Hgb 12.1 L (12.9-16.9) g/dL Hct 36.5 L (37.5-50.1) % Plt Count 129 L (140-400) K/mcL Neutrophils # 12.8 H (1.6-8.9) K/mcL BMP 05/30/18 05/30/18 05/30/18 10:13 10:35 10:35 Sodium Potassium Chloride Carbon Dioxide BUN Creatinine Glucose 146 H 184 H TNP Calcium 05/30/18 05/31/18 12:43 03:31 Sodium 139 134 L Potassium 3.8 3.9 Chloride 109 H 105 Carbon Dioxide 27 24 BUN 18 19 Creatinine 0.99 0.89 Glucose 87 145 H Calcium 8.6 8.4 L - ABG Interpretation ABG results: ABG ABG pH 7.34 pH Units (7.32-7.45) 05/30/18 20:09 ABG pCO2 50 mmHg (35-45) H 05/30/18 20:09 ABG pO2 95 mmHg (85-104) 05/30/18 20:09 ABG O2 Saturation 97 % (95-98) 05/30/18 20:09 PT/INR, D-dimer PT 13.5 Seconds (9.4-12.1) H 05/31/18 03:31 - Impressions Impressions Chest X-Ray 05/30/18 12:05 IMPRESSION: Lines and tubes in satisfactory position status post recent open heart surgery. No evidence of pneumothorax. D/ / Ron Cordova MD / Ron Cordova MD Interpreting Provider: Ron Cordova MD X-Ray 05/30/18 12:05 IMPRESSION: Enteric tube in the stomach. No bowel obstruction. D/ / Ron Cordova MD / Ron Cordova MD Interpreting Provider: Ron Cordova MD Chest X-Ray 05/31/18 04:00 IMPRESSION: Interval extubation. No pneumothorax. Pulmonary hypoinflation with fluctuating areas of atelectasis. D/ / Bam Russell / Bam Russell Interpreting Provider: Bam Russell - VTE Documentation of Mechanical Device: Graduated compression elastic hosiery Consult Discharge Plan - Plan Referrals: Corry Wang CNP [Primary Care Provider] - Dia Ngo [Family Provider] - <Hollie Hernandez - Last Filed: 05/31/18 17:39> Hospitalist Progress Note - Encounter Date of Encounter: 05/31/18 - Exam Vitals: Temp Pulse Resp BP Pulse Ox 99.3 F 97 16 121/71 96 05/31/18 11:00 05/31/18 16:00 05/31/18 16:29 05/31/18 16:00 05/31/18 16:29 - Assessment and Plan (1) CAD (coronary artery disease) Current Visit: Yes Status: Acute (2) Triple vessel coronary artery disease Current Visit: Yes Status: Acute - Time Spent with Patient Total time spent is greater than 50% in coordination of care (as documented) at patient's floor/unit and/or counseling patient: Internal Medicine: Result - Labs CBC & Chem 7: 05/31/18 03:31 05/31/18 03:31 Labs: Short CBC 05/31/18 Range/Units 03:31 WBC 15.9 H (4.3-11.1) K/mcL Hgb 12.1 L (12.9-16.9) g/dL Hct 36.5 L (37.5-50.1) % Plt Count 129 L (140-400) K/mcL Neutrophils # 12.8 H (1.6-8.9) K/mcL BMP 05/31/18 03:31 Sodium 134 L Potassium 3.9 Chloride 105 Carbon Dioxide 24 BUN 19 Creatinine 0.89 Glucose 145 H Calcium 8.4 L - ABG Interpretation ABG results: ABG ABG pH 7.34 pH Units (7.32-7.45) 05/30/18 20:09 ABG pCO2 50 mmHg (35-45) H 05/30/18 20:09 ABG pO2 95 mmHg (85-104) 05/30/18 20:09 ABG O2 Saturation 97 % (95-98) 05/30/18 20:09 PT/INR, D-dimer PT 13.5 Seconds (9.4-12.1) H 05/31/18 03:31 - Impressions Impressions Chest X-Ray 05/31/18 04:00 IMPRESSION: Interval extubation. No pneumothorax. Pulmonary hypoinflation with fluctuating areas of atelectasis. D/ / Bam Russell / Bam Russell Interpreting Provider: Bam Russell - Attending Attestation Seen and assessed. Agree with plan per resident Plan Triple vessel disease. s/p CABG. For transfer to the floor. CT surgery following <Vladimir Ashraf A - Last Filed: 05/31/18 16:23> (1) CAD (coronary artery disease) Qualifiers: Coronary Disease-Associated Artery/Lesion type: [place] artery [place] vs. transplanted heart: [place] heart Associated angina: with unstable angina Qualified Code(s): I25.110 - Atherosclerotic heart disease of [place] coronary artery with unstable angina pectoris <Hollie Hernandez A - Last Filed: 05/31/18 17:39> (1) CAD (coronary artery disease) Qualifiers: Coronary Disease-Associated Artery/Lesion type: [place] artery [place] vs. transplanted heart: [place] heart Associated angina: with unstable angina Qualified Code(s): I25.110 - Atherosclerotic heart disease of [place] coronary artery with unstable angina pectoris
[2018-05-31] MEDS: Aspirin 81 MG TAB.CHEW PO SCH (09:39)
[2018-05-31] MEDS: Chlorhexidine Rinse 15 ML MOUTHWASH MM SCH ×2 (09:39→20:12)
[2018-05-31] MEDS ORDERED: Dextrose Gel 15 GM/37.5 ML TUBE PO PRN ×2 (09:55)
[2018-05-31] MEDS ORDERED: Naloxone 0.4 MG/ML INJ IVP PRN (09:55)
[2018-05-31] MEDS ORDERED: Nitroglycerin 0.4 MG TAB.SUBL SL PRN (09:55)
[2018-05-31] MEDS ORDERED: D5% in Water 1,000 ML IVC PRN (09:55)
[2018-05-31] MEDS ORDERED: Acetaminophen 325 MG TABLET PO PRN (09:55)
[2018-05-31] MEDS ORDERED: *HR* Dextrose 50 % in Water (Syg) 50 ML SYRINGE IVP PRN (09:55)
[2018-05-31] MEDS: Insulin LISPRO 300 UNITS/3 ML VIAL SQ SCH ×3 (11:37→20:13)
[2018-05-31] MEDS: traMADol 50 MG TABLET PO PRN ×2 (14:55→20:11)
[2018-05-31] MEDS: *HR* Heparin 5,000 UNIT/ML VIAL SQ SCH (18:18)
[2018-06-01] MEDS: *HR* OxyCODONE/APAP 5/325 TABLET PO PRN ×3 (01:52→12:11)
[2018-06-01] MEDS: traMADol 50 MG TABLET PO PRN ×2 (03:44→09:13)
[2018-06-01 04:08] LABS: Basophils % 0.2 %; Eosinophils % 0.2 %; Hematocrit 34.5 % (37.5-50.1); Hemoglobin 11.7 g/dL (12.9-16.9); Immature Granulocytes % 0.6 % (0-4); Lymphocytes # 1.9 K/mcL (0.6-4.6); Lymphocytes % 9.8 %; Mean Corpuscular HGB Conc 33.9 g/dL (31.6-35.5); Mean Corpuscular Hemoglobin 31.4 pg (28.0-33.3); Mean Corpuscular Volume 92.5 fL (83.0-100.0); Monocytes # 2.4 K/mcL (0.0-1.3); Monocytes % 12.4 %; Neutrophils # 15.2 K/mcL (1.6-8.9); Platelet Count 133 K/mcL (140-400); Red Blood Count 3.73 M/mcL (4.19-5.50); Red Cell Distribution Width 12.2 % (11.5-14.5); Segmented Neutrophils % 76.8 %
[2018-06-01 04:23] LABS: BUN/Creatinine Ratio 23 (6-26); Blood Urea Nitrogen 18 mg/dL (6-20); Calcium 8.8 mg/dL (8.6-10.3); Carbon Dioxide 30 mEq/L (23-29); Chloride 98 mEq/L (98-107); Glucose 123 mg/dL (70-105); Osmolality,Calculated 279 (280-300); Potassium 3.6 mEq/L (3.5-5.1); Sodium 133 mEq/L (136-145); eGFR For Non-African Americans > 60 (> 60)
[2018-06-01] MEDS: *HR* Heparin 5,000 UNIT/ML VIAL SQ SCH ×2 (06:20→18:09)
[2018-06-01] MEDS: Ondansetron 4 MG/2 ML VIAL IVP PRN (06:22)
[2018-06-01] MEDS: Nitroglycerin 25 MG/250 ML INFUS..BTL IVC SCH (07:26)
[2018-06-01] MEDS: Insulin LISPRO 300 UNITS/3 ML VIAL SQ SCH ×4 (07:31→20:28)
[2018-06-01] MEDS: Chlorhexidine Rinse 15 ML MOUTHWASH MM SCH ×2 (07:37→20:25)
[2018-06-01] MEDS: Aspirin 81 MG TAB.CHEW PO SCH (07:37)
--- NOTE | 2018-06-01 10:35 | Electrocardiograph Report ---
[place] [id number] Test Date: 2018-05-30 Pat Name: Evert Velasquez Department: 112 Room: [facility] Gender: M Advice Line Rn: : [id number] Requested By: Sylvester Gurrola Order Number: [id number] Reading MD: Magi Fischer Measurements Intervals [place] Rate: 77 P: 11 VA: 160 QRS: 22 QRSD: 94 T: 27 QT: 405 QTc: 437 Interpretive Statements SINUS RHYTHM Electronically Signed On 06-01-2018 10:33:43 EDT by Magi Fischer
--- NOTE | 2018-06-01 10:58 | Internal Med Progress Note ---
Hospitalist Progress Note - Encounter Date of Encounter: 06/01/18 Time of Encounter: 10:00 - Exam Vitals: Temp Pulse Resp BP Pulse Ox 98.4 F 92 16 133/87 95 06/01/18 07:45 06/01/18 09:00 06/01/18 09:03 06/01/18 09:03 06/01/18 09:03 Exam: Constitutional: well developed, well nourished. no acute distress Head: normocephalic and atraumatic Eyes: PERRL, EOMI. no scleral icterus Neck: supple, trachea midline. no lymphadenopathy Lungs: CTA bilaterally. non-labored breathing. No wheezes, rales, or rhonchi. Heart: RRR +s1 +s2. no murmurs, clicks, or rubs GI: abdomen soft, non-tender, non-distended Extremities: radial pulses palpable and symmetrical. no cyanosis or edema. Neuro: A&Ox3. no focal deficits. no speech difficulty or abnormality Skin: warm, dry, intact. Midline sternotomy incision clean, dry, and intact with dressing in place. - Assessment and Plan (1) Triple vessel coronary artery disease Current Visit: Yes Status: Acute Assessment and Plan: LHC on 05/28 revealed triple vessel CAD with left main disease. CABG on 05/30 Continue ASA Contine Crestor 40mg qd Continue Metoprolol 25mg BID Management of post-op care per CT surgery (2) CAD (coronary artery disease) Current Visit: Yes Status: Acute Assessment and Plan: Plan as above for CABG Continue Crestor 40mg qd in light of strong family hx of CAD with premature and significant hyperlipidemia as seen on 05/28 labs DVT Prophylaxis: SQ Heparin - Time Spent with Patient Total time spent is greater than 50% in coordination of care (as documented) at patient's floor/unit and/or counseling patient: Internal Medicine: Result - Labs CBC & Chem 7: 06/01/18 03:58 06/01/18 03:58 Labs: Short CBC 06/01/18 Range/Units 03:58 WBC 19.7 H (4.3-11.1) K/mcL Hgb 11.7 L (12.9-16.9) g/dL Hct 34.5 L (37.5-50.1) % Plt Count 133 L (140-400) K/mcL Neutrophils # 15.2 H (1.6-8.9) K/mcL BMP 06/01/18 03:58 Sodium 133 L Potassium 3.6 Chloride 98 Carbon Dioxide 30 H BUN 18 Creatinine 0.80 Glucose 123 H Calcium 8.8 - ABG Interpretation ABG results: ABG ABG pH 7.34 pH Units (7.32-7.45) 05/30/18 20:09 ABG pCO2 50 mmHg (35-45) H 05/30/18 20:09 ABG pO2 95 mmHg (85-104) 05/30/18 20:09 ABG O2 Saturation 97 % (95-98) 05/30/18 20:09 PT/INR, D-dimer PT 13.5 Seconds (9.4-12.1) H 05/31/18 03:31 - VTE Documentation of Mechanical Device: Graduated compression elastic hosiery Consult Discharge Plan - Plan Referrals: Corry Wang, [employer] [Primary Care Provider] - Dia Ngo [Family Provider] - (2) CAD (coronary artery disease) Qualifiers: Coronary Disease-Associated Artery/Lesion type: [place] artery [place] vs. transplanted heart: [place] heart Associated angina: with unstable angina Qualified Code(s): I25.110 - Atherosclerotic heart disease of [place] coronary artery with unstable angina pectoris
--- NOTE | 2018-06-01 11:10 | Cardiothoracic Progress Note ---
Date of Encounter: 06/01/18 Time of Encounter: 11:01 - Subjective Procedure(s) Performed: Patient seen and examined. In summary he is a 57-year-old obese white male who underwent a CABG and Maze procedure on May 24. He had an uneventful intraoperative course but notably developed postoperative A. fib which was treated with IV amiodarone and beta blockade. He converted to sinus rhythm. Notably he has a history of gout and developed increasing symptoms of his gout and was kept in the hospital for treatment of this ailment. He is on colchicine and Indocin. Notably, this morning the patient developed nausea and vomiting. Therefore, I obtained AP and lateral chest x-ray and will stop his Indocin at this time. He is last bowel movement was 2 days ago and was loose by report. He denies any abdominal pain. We will add labs to his workup this morning to include a CBC, BMP, amylase lipase. Vital Signs, Last 4 Hours Temp Pulse Resp BP Pulse Ox 06/01/18 11:00 90 20 123/84 95 06/01/18 09:03 16 133/87 95 06/01/18 09:00 92 20 130/87 95 06/01/18 07:45 98.4 F Oxgyen Flow Rate Oxygen Flow Rate (LPM) 2 Clinical Data, last 8 Hours Output, Chest Tube Drainage 10 Amount [Mediastinal #1] Output, Chest Tube Drainage 10 Amount [Mediastinal #2] Output, Chest Tube Drainage 0 Amount [Mediastinal #3] Weight 05/30/18 05/31/18 06/01/18 23:59 23:59 23:59 Weight 120 kg 120.8 kg - Physical Examination General: Other (Sitting up in chair, complaining of nausea in no apparent distress) Sternum: Other (Dressing intact) Pacing Wires: In place - Labs 06/01/18 03:58 06/01/18 03:58 Lab Results, Last 24 hours 06/01/18 06/01/18 03:58 03:58 WBC 19.7 H Hgb 11.7 L Hct 34.5 L Plt Count 133 L Sodium 133 L Potassium 3.6 Chloride 98 Carbon Dioxide 30 H BUN 18 Creatinine 0.80 Glucose 123 H Calcium 8.8 - VTE Documentation of Mechanical Device: Graduated compression elastic hosiery Consult Discharge Plan - Plan Referrals: Corry Wang, IRMA [Primary Care Provider] - Dia Ngo [Family Provider] -
--- NOTE | 2018-06-01 12:08 | Cardiothoracic Progress Note ---
Date of Encounter: 06/01/18 Time of Encounter: 12:06 - Subjective Procedure(s) Performed: Patient seen and examined. Patient is postoperative day #2 from a CABG 3 which went uneventfully by report. He has had uneventful night without any arrhythmias. His primary complaint is that of chest discomfort with coughing and deep breathing. His chest tubes are still in place but is had minimal drainage. His Pina is also in place. His chest tubes removed and the bedside which was tolerated well. His pacing wires were left in place. We will remove his Pina and emphasized importance of coughing, deep breathing and regularly use of his incentive spirometer. Vital Signs, Last 4 Hours Temp Pulse Resp BP Pulse Ox 06/01/18 11:28 97.7 F 06/01/18 11:00 92 20 123/84 95 06/01/18 09:03 16 133/87 95 06/01/18 09:00 92 20 130/87 95 Oxgyen Flow Rate Oxygen Flow Rate (LPM) 2 Clinical Data, last 8 Hours Output, Chest Tube Drainage 40 Amount [Mediastinal #3] Weight 05/30/18 05/31/18 06/01/18 23:59 23:59 23:59 Weight 120 kg 120.8 kg - Physical Examination General: Other (Lying in bed, complaining of some mild discomfort from chest) Incision: Other (Dressing intact clean dry and intact) Sternum: Stable Chest tubes: Other (Chest tubes removed the bedside dry dressing applied) Lungs: Other (Somewhat poor inspiratory effort) - Labs 06/01/18 03:58 06/01/18 03:58 Lab Results, Last 24 hours 06/01/18 06/01/18 03:58 03:58 WBC 19.7 H Hgb 11.7 L Hct 34.5 L Plt Count 133 L Sodium 133 L Potassium 3.6 Chloride 98 Carbon Dioxide 30 H BUN 18 Creatinine 0.80 Glucose 123 H Calcium 8.8 - VTE Documentation of Mechanical Device: Graduated compression elastic hosiery Consult Discharge Plan - Plan Referrals: Corry Wang CNP [Primary Care Provider] - Dia Ngo [Family Provider] -
[2018-06-02 03:55] LABS: Basophils % 0.2 %; Eosinophils % 0.2 %; Hematocrit 33.5 % (37.5-50.1); Hemoglobin 11.2 g/dL (12.9-16.9); Immature Granulocytes % 0.5 % (0-4); Lymphocytes # 1.9 K/mcL (0.6-4.6); Lymphocytes % 10.9 %; Mean Corpuscular HGB Conc 33.4 g/dL (31.6-35.5); Mean Corpuscular Hemoglobin 31.2 pg (28.0-33.3); Mean Corpuscular Volume 93.3 fL (83.0-100.0); Mean Platelet Volume 10.7 fL (9.4-12.4); Monocytes # 2.1 K/mcL (0.0-1.3); Monocytes % 11.8 %; Neutrophils # 13.5 K/mcL (1.6-8.9); Platelet Count 144 K/mcL (140-400); Red Blood Count 3.59 M/mcL (4.19-5.50); Red Cell Distribution Width 12.1 % (11.5-14.5); Segmented Neutrophils % 76.4 %
[2018-06-02] MEDS: traMADol 50 MG TABLET PO PRN (04:02)
[2018-06-02 04:13] LABS: BUN/Creatinine Ratio 32 (6-26); Blood Urea Nitrogen 24 mg/dL (6-20); Calcium 8.5 mg/dL (8.6-10.3); Carbon Dioxide 30 mEq/L (23-29); Chloride 99 mEq/L (98-107); Glucose 118 mg/dL (70-105); Osmolality,Calculated 285 (280-300); Potassium 3.6 mEq/L (3.5-5.1); Sodium 135 mEq/L (136-145); eGFR For Non-African Americans > 60 (> 60)
[2018-06-02] MEDS: *HR* Heparin 5,000 UNIT/ML VIAL SQ SCH ×2 (06:14→18:48)
[2018-06-02] MEDS: Insulin LISPRO 300 UNITS/3 ML VIAL SQ SCH ×4 (08:03→20:45)
[2018-06-02] MEDS: Chlorhexidine Rinse 15 ML MOUTHWASH MM SCH ×2 (08:07→20:45)
[2018-06-02] MEDS: Aspirin 81 MG TAB.CHEW PO SCH (08:07)
[2018-06-02] MEDS: *HR* OxyCODONE/APAP 5/325 TABLET PO PRN ×3 (08:36→18:48)
--- NOTE | 2018-06-02 11:38 | Internal Med Progress Note ---
Hospitalist Progress Note - Encounter Date of Encounter: 06/02/18 Time of Encounter: 11:40 - Exam Vitals: Temp Pulse Resp BP Pulse Ox 98.3 F 93 16 121/80 95 06/02/18 04:00 06/02/18 08:00 06/02/18 08:11 06/02/18 08:11 06/02/18 08:11 Exam: Constitutional: well developed, well nourished. no acute distress Head: normocephalic and atraumatic Eyes: PERRL, EOMI. no scleral icterus Neck: supple, trachea midline. no lymphadenopathy Lungs: CTA bilaterally. non-labored breathing. No wheezes, rales, or rhonchi. Heart: RRR +s1 +s2. no murmurs, clicks, or rubs GI: abdomen soft, non-tender, non-distended Extremities: radial pulses palpable and symmetrical. no cyanosis or edema. Neuro: A&Ox3. no focal deficits. no speech difficulty or abnormality Skin: warm, dry, intact. Midline sternotomy incision clean, dry, and intact with dressing in place. - Assessment and Plan (1) Triple vessel coronary artery disease Current Visit: Yes Status: Acute Assessment and Plan: LHC on 05/28 revealed triple vessel CAD with left main disease. CABG on 05/30 Continue ASA Contine Crestor 40mg qd Continue Metoprolol 25mg BID Management of post-op care per CT surgery (2) CAD (coronary artery disease) Current Visit: Yes Status: Acute Assessment and Plan: Plan as above for CABG Continue Crestor 40mg qd in light of strong family hx of CAD with premature and significant hyperlipidemia as seen on 05/28 labs DVT Prophylaxis: SQ Heparin - Time Spent with Patient Total time spent is greater than 50% in coordination of care (as documented) at patient's floor/unit and/or counseling patient: Internal Medicine: Result - Labs CBC & Chem 7: 06/02/18 03:40 06/02/18 03:40 Labs: Short CBC 06/02/18 Range/Units 03:40 WBC 17.7 H (4.3-11.1) K/mcL Hgb 11.2 L (12.9-16.9) g/dL Hct 33.5 L (37.5-50.1) % Plt Count 144 (140-400) K/mcL Neutrophils # 13.5 H (1.6-8.9) K/mcL BMP 06/02/18 03:40 Sodium 135 L Potassium 3.6 Chloride 99 Carbon Dioxide 30 H BUN 24 H Creatinine 0.75 Glucose 118 H Calcium 8.5 L - ABG Interpretation ABG results: ABG ABG pH 7.34 pH Units (7.32-7.45) 05/30/18 20:09 ABG pCO2 50 mmHg (35-45) H 05/30/18 20:09 ABG pO2 95 mmHg (85-104) 05/30/18 20:09 ABG O2 Saturation 97 % (95-98) 05/30/18 20:09 PT/INR, D-dimer PT 13.5 Seconds (9.4-12.1) H 05/31/18 03:31 - VTE Documentation of Mechanical Device: Graduated compression elastic hosiery Consult Discharge Plan - Plan Referrals: Corry Wang, IRMA [Primary Care Provider] - Dia Ngo [Family Provider] - (2) CAD (coronary artery disease) Qualifiers: Coronary Disease-Associated Artery/Lesion type: [place] artery [place] vs. transplanted heart: [place] heart Associated angina: with unstable angina Qualified Code(s): I25.110 - Atherosclerotic heart disease of [place] coronary artery with unstable angina pectoris
--- NOTE | 2018-06-02 14:54 | Cardiothoracic Progress Note ---
Date of Encounter: 06/02/18 Time of Encounter: 14:53 - Subjective Procedure(s) Performed: Patient seen and examined. Patient is postoperative day #2 from a CABG 3 which went uneventfully by report. He has had uneventful night without any arrhythmias. His primary complaint is that of chest discomfort with coughing and deep breathing. His chest tubes were removed yesterday and his pacing wires were left in place. His Pina was removed yesterday and he is voiding without difficulty. He had an uneventful night in the ICU and was transferred to the floor today. He states his chest discomfort is markedly improved with this chest tubes out. We again and emphasized importance of coughing, deep breathing and regularly use of his incentive spirometer. Vital Signs, Last 4 Hours Pulse Resp BP Pulse Ox 06/02/18 12:00 83 06/02/18 11:35 16 121/80 94 Oxgyen Flow Rate Oxygen Flow Rate (LPM) 2 Weight 05/31/18 06/01/18 06/02/18 23:59 23:59 23:59 Weight 120.8 kg 120.1 kg - Physical Examination Incision: Other (Dressing in place, clean dry and intact) Sternum: Stable - Labs 06/02/18 03:40 06/02/18 03:40 Lab Results, Last 24 hours 06/02/18 06/02/18 03:40 03:40 WBC 17.7 H Hgb 11.2 L Hct 33.5 L Plt Count 144 Sodium 135 L Potassium 3.6 Chloride 99 Carbon Dioxide 30 H BUN 24 H Creatinine 0.75 Glucose 118 H Calcium 8.5 L - VTE Documentation of Mechanical Device: Graduated compression elastic hosiery Consult Discharge Plan - Plan Referrals: Corry Wang CNP [Primary Care Provider] - Dia Ngo [Family Provider] -
[2018-06-03] MEDS: *HR* OxyCODONE/APAP 5/325 TABLET PO PRN ×4 (02:33→23:54)
[2018-06-03] MEDS: *HR* Heparin 5,000 UNIT/ML VIAL SQ SCH ×2 (05:34→17:25)
[2018-06-03] MEDS: Insulin LISPRO 300 UNITS/3 ML VIAL SQ SCH ×4 (07:36→19:51)
[2018-06-03] MEDS: Chlorhexidine Rinse 15 ML MOUTHWASH MM SCH ×2 (07:36→20:05)
[2018-06-03] MEDS: Aspirin 81 MG TAB.CHEW PO SCH (07:36)
[2018-06-03 08:56] LABS: Basophils # 0.1 K/mcL (0.0-0.2); Basophils % 0.3 %; Eosinophils # 0.1 K/mcL (0.0-0.6); Eosinophils % 0.8 %; Hematocrit 33.7 % (37.5-50.1); Hemoglobin 11.1 g/dL (12.9-16.9); Immature Granulocytes % 0.7 % (0-4); Lymphocytes # 1.9 K/mcL (0.6-4.6); Lymphocytes % 13.4 %; Mean Corpuscular HGB Conc 32.9 g/dL (31.6-35.5); Mean Corpuscular Hemoglobin 30.7 pg (28.0-33.3); Mean Corpuscular Volume 93.1 fL (83.0-100.0); Mean Platelet Volume 10.3 fL (9.4-12.4); Monocytes # 1.6 K/mcL (0.0-1.3); Monocytes % 11.2 %; Neutrophils # 10.7 K/mcL (1.6-8.9); Platelet Count 214 K/mcL (140-400); Red Blood Count 3.62 M/mcL (4.19-5.50); Red Cell Distribution Width 12.2 % (11.5-14.5); Segmented Neutrophils % 73.6 %
[2018-06-03 08:59] LABS: BUN/Creatinine Ratio 33 (6-26); Blood Urea Nitrogen 23 mg/dL (6-20); Calcium 8.6 mg/dL (8.6-10.3); Carbon Dioxide 28 mEq/L (23-29); Chloride 99 mEq/L (98-107); Glucose 123 mg/dL (70-105); Osmolality,Calculated 277 (280-300); Potassium 3.7 mEq/L (3.5-5.1); Sodium 131 mEq/L (136-145); eGFR For Non-African Americans > 60 (> 60)
--- NOTE | 2018-06-03 09:46 | Internal Med Progress Note ---
<Vladimir Ashraf - Last Filed: 06/03/18 13:17> Hospitalist Progress Note - Encounter Date of Encounter: 06/03/18 Time of Encounter: 10:29 - Subjective Interval History: Mr. Velasquez is a 57M with PMH of hyperlipidemia and significant family hx of CAD with premature . He originally presented to the ED on 05/27 complaining of sudden onset substernal chest pain and pressure associated with nausea, diaphoresis, shortness of breath, and radiation to his left arm. He also experienced diaphoresis and dyspnea. The chest pain had been occurring for the past 24 hours and was relieved after 3 doses of Nitroglycerin. EKG showed normal sinus rhythm. CXR revealed possible left lower lobe PNA. Serial troponins were negative. Cardiology was consulted. Echo was normal. Nuclear stress test was normal. Underwent LHC on 05/28 which revealed triple vessel disease with Left main disease. Underwent 3 vessel CABG on 05/30. Pt seen and examined at bedside. Mild distress. No new or acute complaints. States he feels "tired". Endorses pain is well controlled with medication. Denies fever, chills, abdominal pain, nausea, vomiting, headache, numbness, or tingling. - Exam Vitals: Temp Pulse Resp BP Pulse Ox 98.4 F 80 20 131/77 93 06/03/18 07:29 06/03/18 07:50 06/03/18 08:16 06/03/18 07:29 06/03/18 08:16 Exam: Constitutional: well developed, well nourished. no acute distress Head: normocephalic and atraumatic Eyes: PERRL, EOMI. no scleral icterus Neck: supple, trachea midline. no lymphadenopathy Lungs: CTA bilaterally. non-labored breathing. No wheezes, rales, or rhonchi. Heart: RRR +s1 +s2. no murmurs, clicks, or rubs GI: abdomen soft, non-tender, non-distended Extremities: radial pulses palpable and symmetrical. no cyanosis or edema. Neuro: A&Ox3. no focal deficits. no speech difficulty or abnormality Skin: warm, dry, intact. Midline sternotomy incision clean, dry, and intact with dressing in place. - Assessment and Plan (1) CAD (coronary artery disease) Current Visit: Yes Status: Acute Assessment and Plan: Plan as above for CABG Continue Crestor 40mg qd in light of strong family hx of CAD with premature and significant hyperlipidemia as seen on 05/28 labs (2) Triple vessel coronary artery disease Current Visit: Yes Status: Acute Assessment and Plan: C on 05/28 revealed triple vessel CAD with left main disease. CABG on 05/30 Continue ASA Contine Crestor 40mg qd Continue Metoprolol 25mg BID Management of post-op care per CT surgery DVT Prophylaxis: SQ Heparin - Summary of Assessment and Plan Summary of Assessment and Plan: Hospitalist team with sign off at this time. Post-CABG management per CT surgery. Please call with further needs or questions. - Time Spent with Patient Total time spent is greater than 50% in coordination of care (as documented) at patient's floor/unit and/or counseling patient: Internal Medicine: Result - Labs CBC & Chem 7: 06/03/18 08:30 06/03/18 08:30 Labs: Short CBC 06/03/18 Range/Units 08:30 WBC 14.5 H (4.3-11.1) K/mcL Hgb 11.1 L (12.9-16.9) g/dL Hct 33.7 L (37.5-50.1) % Plt Count 214 (140-400) K/mcL Neutrophils # 10.7 H (1.6-8.9) K/mcL BMP 06/03/18 08:30 Sodium 131 L Potassium 3.7 Chloride 99 Carbon Dioxide 28 BUN 23 H Creatinine 0.69 L Glucose 123 H Calcium 8.6 - ABG Interpretation ABG results: ABG ABG pH 7.34 pH Units (7.32-7.45) 05/30/18 20:09 ABG pCO2 50 mmHg (35-45) H 05/30/18 20:09 ABG pO2 95 mmHg (85-104) 05/30/18 20:09 ABG O2 Saturation 97 % (95-98) 05/30/18 20:09 PT/INR, D-dimer PT 13.5 Seconds (9.4-12.1) H 05/31/18 03:31 - VTE Documentation of Mechanical Device: Graduated compression elastic hosiery Consult Discharge Plan - Plan Referrals: Corry Wang, [employer]ER [Primary Care Provider] - 06/11/18 1:00 pm Sylvester Gurrola MD [Partnered Physician] - 06/27/18 1:30 pm Dia Ngo [Family Provider] - <Hollie Hernandez - Last Filed: 06/03/18 13:23> Hospitalist Progress Note - Encounter Date of Encounter: 06/03/18 - Exam Vitals: Temp Pulse Resp BP Pulse Ox 98.2 F 66 19 124/82 99 06/03/18 11:45 06/03/18 11:45 06/03/18 11:45 06/03/18 11:45 06/03/18 11:45 - Assessment and Plan (1) CAD (coronary artery disease) Current Visit: Yes Status: Acute (2) Triple vessel coronary artery disease Current Visit: Yes Status: Acute - Time Spent with Patient Total time spent is greater than 50% in coordination of care (as documented) at patient's floor/unit and/or counseling patient: Internal Medicine: Result - Labs CBC & Chem 7: 06/03/18 08:30 06/03/18 08:30 Labs: Short CBC 06/03/18 Range/Units 08:30 WBC 14.5 H (4.3-11.1) K/mcL Hgb 11.1 L (12.9-16.9) g/dL Hct 33.7 L (37.5-50.1) % Plt Count 214 (140-400) K/mcL Neutrophils # 10.7 H (1.6-8.9) K/mcL BMP 06/03/18 08:30 Sodium 131 L Potassium 3.7 Chloride 99 Carbon Dioxide 28 BUN 23 H Creatinine 0.69 L Glucose 123 H Calcium 8.6 - ABG Interpretation ABG results: ABG ABG pH 7.34 pH Units (7.32-7.45) 05/30/18 20:09 ABG pCO2 50 mmHg (35-45) H 05/30/18 20:09 ABG pO2 95 mmHg (85-104) 05/30/18 20:09 ABG O2 Saturation 97 % (95-98) 05/30/18 20:09 PT/INR, D-dimer PT 13.5 Seconds (9.4-12.1) H 05/31/18 03:31 - Attending Attestation Seen and assessed. Agree with plan per resident Plan Triple vessel disease. s/p CABG. For transfer to the floor. CT surgery now primary. Hospitalist service will sign off <Vladimir Ashraf A - Last Filed: 06/03/18 13:17> (1) CAD (coronary artery disease) Qualifiers: Coronary Disease-Associated Artery/Lesion type: [place] artery [place] vs. transplanted heart: [place] heart Associated angina: with unstable angina Qualified Code(s): I25.110 - Atherosclerotic heart disease of [place] coronary artery with unstable angina pectoris <Hollie Hernandez A - Last Filed: 06/03/18 13:23> (1) CAD (coronary artery disease) Qualifiers: Coronary Disease-Associated Artery/Lesion type: [place] artery [place] vs. transplanted heart: [place] heart Associated angina: with unstable angina Qualified Code(s): I25.110 - Atherosclerotic heart disease of [place] coronary artery with unstable angina pectoris
--- NOTE | 2018-06-03 09:50 | Cardiothoracic Progress Note ---
Date of Encounter: 06/03/18 Time of Encounter: 09:49 - Assessment and plan (1) CAD (coronary artery disease) Current Visit: Yes Status: Acute We will plan to discharge the patient on Sunday. Qualifiers: Coronary Disease-Associated Artery/Lesion type: [place] artery [place] vs. transplanted heart: [place] heart Associated angina: with unstable angina Qualified Code(s): I25.110 - Atherosclerotic heart disease of [place] coronary artery with unstable angina pectoris - Subjective Interval history: The patient is ambulating and tolerating his diet. Vital Signs, Last 4 Hours Temp Pulse Resp BP Pulse Ox 06/03/18 08:16 20 93 06/03/18 07:50 80 06/03/18 07:29 98.4 F 79 20 131/77 93 Oxgyen Flow Rate Oxygen Flow Rate (LPM) 3 Weight 06/01/18 06/02/18 06/03/18 23:59 23:59 23:59 Weight 122.6 kg Lungs are clear to percussion and auscultation. Heart is in a normal sinus rhythm. All incisions are healing well without signs of infection and the sternum is stable. - Labs 06/03/18 08:30 06/03/18 08:30 Lab Results, Last 24 hours 06/03/18 06/03/18 08:30 08:30 WBC 14.5 H Hgb 11.1 L Hct 33.7 L Plt Count 214 Sodium 131 L Potassium 3.7 Chloride 99 Carbon Dioxide 28 BUN 23 H Creatinine 0.69 L Glucose 123 H Calcium 8.6 - VTE Documentation of Mechanical Device: Graduated compression elastic hosiery Consult Discharge Plan - Plan Referrals: Corry Wang CNP [Primary Care Provider] - Sylvester Gurrola MD [Partnered Physician] - Dia Ngo [Family Provider] -
[2018-06-03] MEDS: traMADol 50 MG TABLET PO PRN ×2 (12:45→20:36)
[2018-06-04 00:45] LABS: Basophils # 0.1 K/mcL (0.0-0.2); Basophils % 0.4 %; Eosinophils # 0.2 K/mcL (0.0-0.6); Eosinophils % 1.2 %; Hematocrit 31.3 % (37.5-50.1); Hemoglobin 10.9 g/dL (12.9-16.9); Immature Granulocytes % 0.6 % (0-4); Lymphocytes # 2.2 K/mcL (0.6-4.6); Lymphocytes % 15.7 %; Mean Corpuscular HGB Conc 34.8 g/dL (31.6-35.5); Mean Corpuscular Hemoglobin 31.6 pg (28.0-33.3); Mean Corpuscular Volume 90.7 fL (83.0-100.0); Monocytes # 1.7 K/mcL (0.0-1.3); Monocytes % 12.6 %; Neutrophils # 9.6 K/mcL (1.6-8.9); Platelet Count 232 K/mcL (140-400); Red Blood Count 3.45 M/mcL (4.19-5.50); Red Cell Distribution Width 12.2 % (11.5-14.5); Segmented Neutrophils % 69.5 %
[2018-06-04 00:52] LABS: BUN/Creatinine Ratio 33 (6-26); Blood Urea Nitrogen 22 mg/dL (6-20); Calcium 8.5 mg/dL (8.6-10.3); Carbon Dioxide 25 mEq/L (23-29); Chloride 100 mEq/L (98-107); Glucose 127 mg/dL (70-105); Osmolality,Calculated 281 (280-300); Potassium 3.6 mEq/L (3.5-5.1); Sodium 133 mEq/L (136-145); eGFR For Non-African Americans > 60 (> 60)
[2018-06-04] MEDS: traMADol 50 MG TABLET PO PRN ×3 (04:01→19:43)
[2018-06-04] MEDS: *HR* Heparin 5,000 UNIT/ML VIAL SQ SCH ×2 (06:12→16:30)
[2018-06-04] MEDS: Aspirin 81 MG TAB.CHEW PO SCH (08:31)
[2018-06-04] MEDS: *HR* OxyCODONE/APAP 5/325 TABLET PO PRN ×2 (08:31→16:30)
[2018-06-04] MEDS: Chlorhexidine Rinse 15 ML MOUTHWASH MM SCH ×2 (08:32→23:12)
[2018-06-04] MEDS: Insulin LISPRO 300 UNITS/3 ML VIAL SQ SCH ×4 (08:33→21:00)
--- NOTE | 2018-06-04 09:06 | Cardiothoracic Progress Note ---
Date of Encounter: 06/04/18 Time of Encounter: 09:05 - Assessment and plan (1) CAD (coronary artery disease) Current Visit: Yes Status: Acute The patient will ambulate today and work on his incentive spirometer. We will plan to discharge him tomorrow. Qualifiers: Coronary Disease-Associated Artery/Lesion type: [place] artery [place] vs. transplanted heart: [place] heart Associated angina: with unstable angina Qualified Code(s): I25.110 - Atherosclerotic heart disease of [place] coronary artery with unstable angina pectoris - Subjective Interval history: The patient has no specific complaints. Vital Signs, Last 4 Hours Temp Pulse Resp BP Pulse Ox 06/04/18 07:51 97.9 F 83 18 109/58 97 Oxgyen Flow Rate Oxygen Flow Rate (LPM) 2 Clinical Data, last 8 Hours Output, Urine Amount 225 Weight 06/02/18 06/03/18 06/04/18 23:59 23:59 23:59 Weight 122.6 kg 111.2 kg Lungs are clear to percussion and auscultation. Heart is in a normal sinus rhythm. All incisions are healing well without signs of infection and the sternum is stable. Chest x-ray reveals bilateral atelectasis. - Labs 06/04/18 00:23 06/04/18 00:23 Lab Results, Last 24 hours 06/04/18 06/04/18 00:23 00:23 WBC 13.8 H Hgb 10.9 L Hct 31.3 L Plt Count 232 Sodium 133 L Potassium 3.6 Chloride 100 Carbon Dioxide 25 BUN 22 H Creatinine 0.67 L Glucose 127 H Calcium 8.5 L - VTE Documentation of Mechanical Device: Graduated compression elastic hosiery Consult Discharge Plan - Plan Referrals: Corry Wang CNP [Primary Care Provider] - 06/11/18 1:00 pm Sylvester Gurrola MD [Partnered Physician] - 06/27/18 1:30 pm Dia Ngo [Family Provider] -
[2018-06-04] MEDS: Ondansetron 4 MG/2 ML VIAL IVP PRN (21:05)
[2018-06-04] MEDS: *HR* Promethazine 25 MG/ML VIAL IVP PRN (23:09)
[2018-06-05] MEDS ORDERED: Simethicone 80 MG TAB.CHEW PO PRN (00:57)
[2018-06-05] MEDS ORDERED: *HR* LORazepam 2 MG/ML VIAL ONE (02:59)
[2018-06-05] MEDS: Ringers Solution, Lactated 1,000 ML IVC SCH ×3 (03:22→16:23)
[2018-06-05] MEDS: Pantoprazole 40 MG in 0.9 % Sodium Chloride Mini Bag 100 ML IVC SCH ×4 (03:28→21:01)
[2018-06-05] MEDS: Ondansetron 4 MG/2 ML VIAL IVP PRN ×3 (03:50→19:43)
--- NOTE | 2018-06-05 03:50 | Event Note ---
Date of Encounter: 06/05/18 Time of Encounter: 03:41 49-year-old male who presented with chest pain, status post CABG day 6. Patient 's nurse paged me stating that he has had 700 mL of vomiting. When I entered the room patient was lying in his bed was noticed to be lethargic. He was awake , alert and oriented 3. Reported that his nausea had improved after vomiting. He reported abdominal pain on his right side of the abdomen. He denied chest pain, shortness of breath. Patient had been receiving Phenergan and Zofran for nausea. Patient was tachycardic with heart rate 110, respiratory rate 17, blood pressure 115/82 on 2 L nasal cannula saturating 95%. At that point he reported he needed to have a bowel movement. Patient was helped up by nursing staff and assisted to the bathroom. In the bathroom right before he got to the toilet Patient became dizzy, lightheaded and was about to fall when the nurse and I gently lowered to the ground. At that time his eyes were open but he was not responding to questions. His head and his right arm started shaking. He was laid down on the ground flat. He started responding within a minute after being laid down onto the ground. Patient initially was thought to have a seizure and IV ativan disorder. Respiratory is called. Never administered as he quickly regained consciousness. At this time heart exam showed patient was sinustachycardic, Lung exam CTAB, abdomen was soft, nontender, nondistended, positive bowel sounds. Patient was helped up by staff and had a bowel movement which was noted to be melena with surrounding bright red blood. Patient was then transferred to the bed. His glucose was 234. Patient's heparin subcutaneous and aspirin were discontinued. Dr. Gurrola was notified of the events. He started on Protonix drip. GI was consulted. Type and screen, repeat labs pending. Chest x-ray and KUB pending.
[2018-06-05 03:56] LABS: Hematocrit 23.8 % (37.5-50.1); Hemoglobin 8.2 g/dL (12.9-16.9); Mean Corpuscular HGB Conc 34.5 g/dL (31.6-35.5); Mean Corpuscular Hemoglobin 30.7 pg (28.0-33.3); Mean Corpuscular Volume 89.1 fL (83.0-100.0); Mean Platelet Volume 10.2 fL (9.4-12.4); Platelet Count 287 K/mcL (140-400); Red Blood Count 2.67 M/mcL (4.19-5.50); Red Cell Distribution Width 12.3 % (11.5-14.5)
[2018-06-05 04:01] LABS: INR 1.6; Prothrombin Time 18.1 Seconds (9.4-12.1)
[2018-06-05 04:14] LABS: BUN/Creatinine Ratio 35 (6-26); Blood Urea Nitrogen 34 mg/dL (6-20); Calcium 8.4 mg/dL (8.6-10.3); Carbon Dioxide 28 mEq/L (23-29); Chloride 95 mEq/L (98-107); Glucose 203 mg/dL (70-105); Osmolality,Calculated 295 (280-300); Potassium 3.3 mEq/L (3.5-5.1); Sodium 136 mEq/L (136-145); eGFR For Non-African Americans > 60 (> 60)
[2018-06-05 04:26] LABS: Alanine Aminotransferase 31 Units/L (7-52); Albumin 3.1 g/dL (3.5-5.7); Albumin/Globulin Ratio 1.3 (1.1-2.2); Alkaline Phosphatase 74 Units/L (34-104); Aspartate Amino Transferase 22 Units/L (13-39); Bilirubin,Direct 0.1 mg/dL (0.0-0.2); Bilirubin,Indirect 0.4 mg/dL (0.0-1.2); Bilirubin,Total 0.5 mg/dL (0.3-1.0); Globulin 2.3 g/dL (2.4-3.5); Total Protein 5.4 g/dL (6.4-8.9)
[2018-06-05] MEDS ORDERED: Potassium Chloride 40 MEQ, Lidocaine 1% 2 ML in D5% in Water 500 ML IVPB ONE (05:00)
[2018-06-05] MEDS: *HR* Promethazine 25 MG/ML VIAL IVP PRN ×3 (05:45→22:12)
[2018-06-05] MEDS ORDERED: 0.9 % Sodium Chloride 250 ML ONE ×3 (06:02→22:20)
[2018-06-05] MEDS ORDERED: Isovue-370 500 ML INFUS..BTL IV ONE (06:23)
[2018-06-05] MEDS: Insulin LISPRO 300 UNITS/3 ML VIAL SQ SCH ×3 (06:27→17:24)
[2018-06-05] MEDS ORDERED: Metoclopramide 10 MG/2 ML VIAL IVP ONE (06:32)
--- NOTE | 2018-06-05 07:53 | Cardiothoracic Progress Note ---
Date of Encounter: 06/05/18 Time of Encounter: 07:51 - Assessment and plan (1) CAD (coronary artery disease) Current Visit: Yes Status: Acute The patient is receiving 2 units of packed red blood cells for a hemoglobin of 8.2. He has the usual, expected acute postoperative blood loss anemia as well as acute blood loss anemia from GI bleeding. GI has been counseled did and will probably need to scope the patient today. Presently, he is on a Protonix drip and is comfortable. We will hold his subcutaneous heparin and aspirin for now. Qualifiers: Coronary Disease-Associated Artery/Lesion type: [place] artery [place] vs. transplanted heart: [place] heart Associated angina: with unstable angina Qualified Code(s): I25.110 - Atherosclerotic heart disease of [place] coronary artery with unstable angina pectoris - Subjective Interval history: The patient had lower abdominal pain last night followed by vomiting of brown fluid. This was followed by bloody diarrhea. Presently, he is sleeping and in no acute discomfort. Vital Signs, Last 4 Hours Temp Pulse Resp BP Pulse Ox 06/05/18 06:21 98.3 F 103 16 102/61 100 06/05/18 06:06 97.6 F 105 24 97/51 99 Oxgyen Flow Rate Oxygen Flow Rate (LPM) 2 Clinical Data, last 8 Hours Output, Urine Amount 100 Output, Urine Amount 100 Weight 06/03/18 06/04/18 06/05/18 23:59 23:59 23:59 Weight 111.2 kg 115.5 kg Lungs are clear to percussion and auscultation. Heart is in a normal sinus rhythm. All incisions are healing well without signs of infection and the sternum is stable. The abdomen is benign. He is status post appendectomy in the past. No tenderness, rebound or guarding. Chest x-ray reveals improved atelectasis. KUB reveals a nonspecific bowel gas pattern. - Labs 06/05/18 03:38 06/05/18 03:38 Lab Results, Last 24 hours 06/05/18 06/05/18 06/05/18 03:38 03:38 03:38 WBC 17.7 H Hgb 8.2 L D Hct 23.8 L Plt Count 287 INR 1.6 Sodium 136 Potassium 3.3 L Chloride 95 L Carbon Dioxide 28 BUN 34 H Creatinine 0.96 Glucose 203 H Calcium 8.4 L Total Bilirubin 0.5 AST 22 ALT 31 Alkaline Phosphatase 74 - VTE Documentation of Mechanical Device: Graduated compression elastic hosiery Consult Discharge Plan - Plan Referrals: Corry Wang CNP [Primary Care Provider] - 06/11/18 1:00 pm Sylvester Gurrola MD [Partnered Physician] - 06/27/18 1:30 pm Dia Ngo [Family Provider] -
[2018-06-05] MEDS: Chlorhexidine Rinse 15 ML MOUTHWASH MM SCH ×2 (08:20→21:00)
[2018-06-05] MEDS ORDERED: Amiodarone Premix 360 MG/200 ML BAG IVC ONE (09:30)
[2018-06-05] MEDS ORDERED: Amiodarone Premix 360 MG/200 ML BAG IVC SCH (09:30)
[2018-06-05] MEDS ORDERED: Amiodarone Premix 150 MG/100 ML BAG IVPB ONE (09:30)
--- NOTE | 2018-06-05 11:56 | Gastroenterology Consult Note ---
<Suyapa Ash - Last Filed: 06/05/18 11:54> Date of Encounter: 06/05/18 Time of Encounter: 09:30 - Assessment and plan (1) Melena Current Visit: Yes Status: Acute Assessment and plan: Will plan for EGD today to rule out MW tear, pud, esophagitis, gastritis, duodenitis, or AVM. Continue PPI. May need colonoscopy if EGD normal. (2) Anemia Current Visit: Yes Status: Acute Qualifiers: Anemia type: iron deficiency Iron deficiency anemia type: other iron deficiency Qualified Code(s): D50.8 - Other iron deficiency anemias (3) CAD (coronary artery disease) Current Visit: Yes Status: Acute Assessment and plan: S/P cABG Qualifiers: Coronary Disease-Associated Artery/Lesion type: [place] artery [place] vs. transplanted heart: [place] heart Associated angina: with unstable angina Qualified Code(s): I25.110 - Atherosclerotic heart disease of [place] coronary artery with unstable angina pectoris - Time Spent With Patient Total time spent is greater than 50% in coordination of care (as documented) at patient's floor/unit and/or counseling patient: GI History of Present Illness - Data of Consult Patient: new to practice Consult date: 06/05/18 Requesting Physician: Hollie Hernandez - Consult Narrative Reason for consult: melena History of present illness: Mr. Velasquez is a 57-year-old male who is 6 days status post CABG. His states he was doing well until yesterday when he started complaining of back and abdominal pain most of the day. He began vomiting dark liquid last night. He had near syncopal episode while walking to the bathroom. He had large black stool following that. His hemoglobin has dropped from 16.1 on admission to 8.2 today. He denies any chest pain or shortness of breath he has some soreness at the surgical site. He denies any GERD or heartburn, he has right upper quadrant tenderness. He does admit to taking Aleve as needed for chronic back pain. EGD: denies Colonoscopy: 10 years ago per NSAIDS: asa 81 mg, aleve prn at home Anticoagulants: heparin sq on hold Past Med Surg Social Fam HX - Past Medical History Medical history: coronary artery disease, hyperlipidemia Psychiatric history: no psych history - Past Surgical History Surgical History: appendectomy Additional surgical history: appendectomy 1975, LHC in 2003 w/ no stents - Social History Smoking Status: Current every day smoker Packs per day: 1-2PPD X 45 YRS Smokeless Tobacco Status: Yes Alcohol use: occasionally Drug use: none - Family History Mother Living Status: Cause of : OR Hx Family Cardiac Disorders: Yes Brother Living Status: Cause of : OR Hx Family Cardiac Disorders: Yes (OR) Review of Systems: GI: as per [place] [facility]: denies fever, has some chills EYES: denies yellow discoloration ENT: denies pain with swallowing or difficulty swallowing CARDIO: see HPI RESP: No Shortness of breath with exertion : denies change in color of urine NEURO: weakness HEME: Denies any bruising MS: chgronic joint pain, joint swelling or back pain. DERM: denies rash or itching PSYCH: Denies history of anxiety or depression - Constitutional Vitals: Temp Pulse Resp BP Pulse Ox 98.8 F 96 17 143/109 99 06/05/18 11:16 06/05/18 11:45 06/05/18 11:16 06/05/18 11:45 06/05/18 11:20 Exam: CONSTITUTIONAL:~drowsy but arousable no acute distress.~HEAD:~normocephalic.~ EYES:~no jaundice.~NECK:~no obvious swelling.~HEART:~regular rate and rhythm, no murmurs, mid sternal incision with dressing, old drainage noted.~LUNGS:~ bilateral good air entry.~ABDOMEN:~non distended, soft, non tender, no masses pulpable, no organomegaly.~RECTAL EXAM:~Deferred.~EXTREMITIES:~no clubbing, cyanosis or edema.~SKIN:~no stigmata of chronic liver disease.~NEUROLOGIC:~no obvious focal defect.~~~~ Results - Labs CBC & Chem 7: 06/05/18 03:38 06/05/18 03:38 Labs: Last Result Calcium 8.4 mg/dL (8.6-10.3) L 06/05/18 03:38 Troponin I < 0.03 ng/mL (< 0.04) 05/28/18 03:46 Triglycerides 200 mg/dL (< 150) H 05/28/18 03:46 Entire Visit Hgb 8.2 g/dL (12.9-16.9) L D 06/05/18 03:38 Hct 23.8 % (37.5-50.1) L 06/05/18 03:38 PT 18.1 Seconds (9.4-12.1) H 06/05/18 03:38 Total Bilirubin 0.5 mg/dL (0.3-1.0) 06/05/18 03:38 AST 22 Units/L (13-39) 06/05/18 03:38 ALT 31 Units/L (7-52) 06/05/18 03:38 - ABG ABG results: ABG ABG pH 7.34 pH Units (7.32-7.45) 05/30/18 20:09 ABG pCO2 50 mmHg (35-45) H 05/30/18 20:09 ABG pO2 95 mmHg (85-104) 05/30/18 20:09 ABG O2 Saturation 97 % (95-98) 05/30/18 20:09 PT/INR, D-dimer PT 18.1 Seconds (9.4-12.1) H 06/05/18 03:38 - Impressions Impressions Chest X-Ray 06/05/18 03:13 IMPRESSION: Improving bilateral atelectasis. No new airspace disease. D/ / Gil Campbell MD / Gil Campbell MD Interpreting Provider: Gil Campbell MD X-Ray 06/05/18 03:14 IMPRESSION: Indeterminate bowel-gas pattern. D/ / Gil Campbell MD / Gil Campbell MD Interpreting Provider: Gil Campbell MD Abdomen CT 06/05/18 06:23 IMPRESSION: Moderate distention of the stomach and duodenum noted without a discrete transition point. This may be related to postoperative ileus given the surgery 6 days ago. No evidence of free air or high-grade obstruction. Nonobstructing left kidney stones. No hydronephrosis or proximal hydroureter is seen. Postsurgical changes noted related to recent median sternotomy with small bilateral pleural effusions and bibasilar atelectasis. D/ / Alexis Chaudhary MD / Alexis Chaudhary MD Interpreting Provider: Alexis Chaudhary MD Consult Discharge Plan - Plan Referrals: Corry Wang [employer] [Primary Care Provider] - 06/11/18 1:00 pm Hong Tate [employer] [Advanced Practice Nurse] - (office will call patient at home with follow up appointment) Sylvester Gurrola MD [Partnered Physician] - 06/27/18 1:30 pm <Silvano Real - Last Filed: 06/05/18 17:43> Date of Encounter: 06/05/18 - Time Spent With Patient Total time spent is greater than 50% in coordination of care (as documented) at patient's floor/unit and/or counseling patient: GI History of Present Illness - Data of Consult Requesting Physician: Hollie Hernandez - Consult Narrative History of present illness: Mr. Velasquez is a 57 year old male - Constitutional Vitals: Temp Pulse Resp BP Pulse Ox 98.9 F 88 20 124/76 100 06/05/18 16:22 06/05/18 17:38 06/05/18 16:22 06/05/18 17:38 06/05/18 17:38 Results - Labs CBC & Chem 7: 06/05/18 12:18 06/05/18 12:18 Labs: Last Result Calcium 7.4 mg/dL (8.6-10.3) L 06/05/18 12:18 Troponin I < 0.03 ng/mL (< 0.04) 05/28/18 03:46 Triglycerides 200 mg/dL (< 150) H 05/28/18 03:46 Entire Visit Hgb 8.1 g/dL (12.9-16.9) L 06/05/18 12:18 Hct 24.2 % (37.5-50.1) L 06/05/18 12:18 PT 18.1 Seconds (9.4-12.1) H 06/05/18 03:38 Total Bilirubin 0.5 mg/dL (0.3-1.0) 06/05/18 03:38 AST 22 Units/L (13-39) 06/05/18 03:38 ALT 31 Units/L (7-52) 06/05/18 03:38 - ABG ABG results: ABG ABG pH 7.34 pH Units (7.32-7.45) 05/30/18 20:09 ABG pCO2 50 mmHg (35-45) H 05/30/18 20:09 ABG pO2 95 mmHg (85-104) 05/30/18 20:09 ABG O2 Saturation 97 % (95-98) 05/30/18 20:09 PT/INR, D-dimer PT 18.1 Seconds (9.4-12.1) H 06/05/18 03:38 - Impressions Impressions Chest X-Ray 06/05/18 03:13 IMPRESSION: Improving bilateral atelectasis. No new airspace disease. D/ / Gil Campbell MD / Gil Campbell MD Interpreting Provider: Gil Campbell MD X-Ray 06/05/18 03:14 IMPRESSION: Indeterminate bowel-gas pattern. D/ / Gil Campbell MD / Gil Campbell MD Interpreting Provider: Gil Campbell MD Abdomen CT 06/05/18 06:23 IMPRESSION: Moderate distention of the stomach and duodenum noted without a discrete transition point. This may be related to postoperative ileus given the surgery 6 days ago. No evidence of free air or high-grade obstruction. Nonobstructing left kidney stones. No hydronephrosis or proximal hydroureter is seen. Postsurgical changes noted related to recent median sternotomy with small bilateral pleural effusions and bibasilar atelectasis. D/ / Alexis Chaudhary MD / Alexis Chaudhary MD Interpreting Provider: Alexis Chaudhary MD - Attending Attestation I have personally performed a face to face evaluation on this patient. I have reviewed and agree with the care plan. History and Exam by me shows: Patient seen. Patient complaining of right-sided abdominal pain. Patient does has some mild tenderness in the upper abdomen. Assessment: 57-year-old male status post CABG now with melena and drop in his hemoglobin. Rec: EGD follow H&H. PPI
[2018-06-05] MEDS ORDERED: *HR* Etomidate 40 MG/20 ML VIAL IVP ONE (12:39)
[2018-06-05] MEDS ORDERED: Lidocaine -MPF 2% 2 ML VIAL ONE (12:39)
[2018-06-05] MEDS ORDERED: *HR* PHENYLEPHRINE 1,000 MCG/10 ML SYRINGE IVP ONE (12:40)
[2018-06-05] MEDS ORDERED: *HR* Propofol 200 MG/20 ML VIAL IVP ONE (12:40)
--- NOTE | 2018-06-05 12:44 | Anesthesia Evaluation PreOp ---
Date of Encounter: 06/05/18 Time of Encounter: 13:00 - Past History Planned Operation: EGD Cardiac History: HTN, Hyperlipidemia, Cardiac Surgery (05-30-2018 CABG....rapid response today 0300..on amiodarone drip), Other (Anemia...transfused 2 units) Pulmonary History: Smoker, COPD [employer] History: Denies Any Significant HX Other Medical History: Denies Any Significant HX Anesthesia History: No Prior Anesthetic Complications Alcohol Use: occasionally Drug use: none Medications and Allergies Rosuvastatin [Crestor] 20 mg PO HS 05/27/18 [History] 3 Allergy/AdvReac Type Severity Reaction Status Date / Time No Known Allergies Allergy Verified 05/27/18 22:00 - Meds/Allergy Pre-op Review Medications Reviewed: Yes Allergies Reviewed: Yes Beta Blockers on Current Med List: Yes (Metoprolol today 1000) Anesthesia Results - Labs 06/05/18 03:38 06/05/18 03:38 - Imaging Additional studies: ECHO EF 60%, no pulm htn Anesthesia Exam Vital Signs/O2 Sat/Glucose, Most Current Temp Pulse Resp BP Pulse Ox 06/05/18 12:18 101 26 127/77 100 06/05/18 11:54 96 127/83 99 06/05/18 11:45 96 143/109 06/05/18 11:30 104 142/82 06/05/18 11:20 98 130/87 99 06/05/18 11:16 98.8 F 102 17 125/80 99 06/05/18 08:47 98.1 F 113 16 101/76 99 Height: 6'0 Weight: 254 lbs NPO (# of Hours): [place] Pain Scale: 0 - HEENT Pupil (Motor): Pupils equal, EOMI Mallampati: III Teeth: Normal Oral Opening: Less than or equal to 3 - [employer] LOC: Oriented [employer] [employer] Motor: Normal RUE, Normal LUE, Normal RLE, Normal LLE, Normal Face [employer] Sensory: Normal: RUE, LUE, RLE, LLE, Face - Cardiac Rhythm: Regular Murmur: None JVD: No Carotid Bruit: No - Pulmonary Breath Sounds: bilateral Clear Respiratory Effort: Symmetrical Anesthesia Assess/Plan ASA Score: 4 (CAD HTN Tobacco Severe Anemia Arrhythmia) Modified Jorge Luis Scale for Level of Consciousness: Cooperative, oriented, and tranquil Anesthetic Plan: MAC Monitoring Plan: Standard Monitors Recovery Plan: Other (Discussed MAC, agrees to proceed)
[2018-06-05 12:55] LABS: Basophils # 0.1 K/mcL (0.0-0.2); Basophils % 0.3 %; Hematocrit 24.2 % (37.5-50.1); Hemoglobin 8.1 g/dL (12.9-16.9); Lymphocytes # 2.6 K/mcL (0.6-4.6); Lymphocytes % 11.2 %; Mean Corpuscular HGB Conc 33.5 g/dL (31.6-35.5); Mean Corpuscular Volume 92.7 fL (83.0-100.0); Mean Platelet Volume 10.6 fL (9.4-12.4); Monocytes # 2.6 K/mcL (0.0-1.3); Neutrophils # 17.1 K/mcL (1.6-8.9); Nucleated Red Blood Cells 0.4 /100 WBC (0); Platelet Count 222 K/mcL (140-400); Red Blood Count 2.61 M/mcL (4.19-5.50); Red Cell Distribution Width 12.8 % (11.5-14.5); Segmented Neutrophils % 73.5 %
[2018-06-05 13:28] LABS: BUN/Creatinine Ratio 43 (6-26); Blood Urea Nitrogen 47 mg/dL (6-20); Calcium 7.4 mg/dL (8.6-10.3); Carbon Dioxide 26 mEq/L (23-29); Chloride 102 mEq/L (98-107); Glucose 132 mg/dL (70-105); Osmolality,Calculated 290 (280-300); Potassium 4.2 mEq/L (3.5-5.1); Sodium 133 mEq/L (136-145); eGFR For Non-African Americans > 60 (> 60)
--- NOTE | 2018-06-05 14:41 | Anesthesia Evaluation Post Op ---
Date of Encounter: 06/05/18 Time of Encounter: 14:30 - Vital Signs Vital Signs: Vital Signs/O2 Sat/Glucose, Most Current Temp Pulse Resp BP Pulse Ox 06/05/18 13:09 106 133/82 06/05/18 13:00 98.1 F 97 20 139/83 99 06/05/18 12:18 101 26 127/77 100 06/05/18 11:54 96 127/83 99 06/05/18 11:45 96 143/109 06/05/18 11:30 104 142/82 06/05/18 11:20 98 130/87 99 06/05/18 11:16 98.8 F 102 17 125/80 99 - Lungs Lungs: Clear Ascult./Percussion - Airway Airway: Non-obstructed - Cardiovascular Regular Rate - Mental Status Mental Status: Alert & Oriented, Answers Appropriately - Pain Pain Scale: 0 - Nausea Vomiting Nausea Vomiting: Not Present - Hydration Hydration: NPO - Discharge PostOp Status: Transfer Patient to floor
[2018-06-05 20:37] LABS: Basophils # 0.1 K/mcL (0.0-0.2); Basophils % 0.5 %; Eosinophils # 0.1 K/mcL (0.0-0.6); Eosinophils % 0.4 %; Hematocrit 23.4 % (37.5-50.1); Immature Granulocytes % 3.6 % (0-4); Lymphocytes # 3.2 K/mcL (0.6-4.6); Lymphocytes % 16.8 %; Mean Corpuscular HGB Conc 34.2 g/dL (31.6-35.5); Mean Corpuscular Hemoglobin 30.9 pg (28.0-33.3); Mean Corpuscular Volume 90.3 fL (83.0-100.0); Mean Platelet Volume 10.3 fL (9.4-12.4); Monocytes % 10.6 %; Neutrophils # 12.9 K/mcL (1.6-8.9); Nucleated Red Blood Cells 0.5 /100 WBC (0); Platelet Count 226 K/mcL (140-400); Red Blood Count 2.59 M/mcL (4.19-5.50); Segmented Neutrophils % 68.1 %
[2018-06-05 20:40] LABS: BUN/Creatinine Ratio 44 (6-26); Blood Urea Nitrogen 43 mg/dL (6-20); Calcium 7.7 mg/dL (8.6-10.3); Carbon Dioxide 27 mEq/L (23-29); Chloride 105 mEq/L (98-107); Glucose 118 mg/dL (70-105); Osmolality,Calculated 294 (280-300); Potassium 3.8 mEq/L (3.5-5.1); Sodium 136 mEq/L (136-145); eGFR For Non-African Americans > 60 (> 60)
[2018-06-06] MEDS: Insulin LISPRO 300 UNITS/3 ML VIAL SQ SCH ×4 (00:50→17:31)
[2018-06-06] MEDS: Ondansetron 4 MG/2 ML VIAL IVP PRN (01:53)
[2018-06-06] MEDS ORDERED: 0.9 % Sodium Chloride 250 ML ONE (06:05)
[2018-06-06] MEDS ORDERED: *HR* Amiodarone 200 MG TABLET ONE (10:22)
[2018-06-06 10:49] LABS: Basophils # 0.1 K/mcL (0.0-0.2); Basophils % 0.6 %; Eosinophils # 0.2 K/mcL (0.0-0.6); Hematocrit 24.6 % (37.5-50.1); Hemoglobin 8.2 g/dL (12.9-16.9); Immature Granulocytes % 3.7 % (0-4); Lymphocytes # 3.3 K/mcL (0.6-4.6); Lymphocytes % 17.5 %; Mean Corpuscular HGB Conc 33.3 g/dL (31.6-35.5); Mean Corpuscular Hemoglobin 30.3 pg (28.0-33.3); Mean Corpuscular Volume 90.8 fL (83.0-100.0); Mean Platelet Volume 10.3 fL (9.4-12.4); Monocytes % 10.5 %; Neutrophils # 12.5 K/mcL (1.6-8.9); Nucleated Red Blood Cells 0.4 /100 WBC (0); Platelet Count 236 K/mcL (140-400); Red Blood Count 2.71 M/mcL (4.19-5.50); Red Cell Distribution Width 13.7 % (11.5-14.5); Segmented Neutrophils % 66.7 %
[2018-06-06] MEDS ORDERED: Ringers Solution, Lactated 1,000 ML IVC SCH (11:54)
--- NOTE | 2018-06-06 12:16 | Internal Med Progress Note ---
Addendum entered and electronically signed by Ayesha Martinez DO 06/07/18 12:59: Physical exam from 06/06/18 gen- alert, awake,appears stated age eyes- pupils equal round , no conjunctival pallor cv- reg rate and rhythm, normal s1,s2, no murmurs appreciated, trace pitting le edema lungs- ctabl, no wheezing, rhonchi or crackles, normal resp effort abd- soft, non tender, no guarding, non distended, + bs skin- warm, dry, no pallor neuro- AAOx3 Original Note: <Ayesha Martinez - Last Filed: 06/06/18 13:56> Hospitalist Progress Note - Exam Vitals: Temp Pulse Resp BP Pulse Ox 98.9 F 95 20 118/53 94 06/06/18 00:49 06/06/18 12:43 06/06/18 12:43 06/06/18 00:49 06/06/18 12:43 - Assessment and Plan (1) CAD (coronary artery disease) Current Visit: Yes Status: Acute (2) Triple vessel coronary artery disease Current Visit: Yes Status: Acute - Time Spent with Patient Total time spent is greater than 50% in coordination of care (as documented) at patient's floor/unit and/or counseling patient: Internal Medicine: Result - Labs CBC & Chem 7: 06/06/18 01:50 06/06/18 00:01 Labs: Short CBC 06/05/18 06/06/18 Range/Units 20:05 01:50 WBC 19.0 H 18.7 H (4.3-11.1) K/mcL Hgb 8.0 L 8.2 L (12.9-16.9) g/dL Hct 23.4 L 24.6 L (37.5-50.1) % Plt Count 226 236 (140-400) K/mcL Neutrophils # 12.9 H 12.5 H (1.6-8.9) K/mcL BMP 06/05/18 06/06/18 20:05 00:01 Sodium 136 136 Potassium 3.8 3.7 Chloride 105 105 Carbon Dioxide 27 26 BUN 43 H 35 H Creatinine 0.98 0.90 Glucose 118 H 120 H Calcium 7.7 L 7.6 L - ABG Interpretation ABG results: ABG ABG pH 7.34 pH Units (7.32-7.45) 05/30/18 20:09 ABG pCO2 50 mmHg (35-45) H 05/30/18 20:09 ABG pO2 95 mmHg (85-104) 05/30/18 20:09 ABG O2 Saturation 97 % (95-98) 05/30/18 20:09 PT/INR, D-dimer PT 18.1 Seconds (9.4-12.1) H 06/05/18 03:38 - Impressions Impressions Chest X-Ray 06/06/18 11:52 IMPRESSION: Bandlike opacities in the right base are favored to represent subsegmental atelectasis. Findings appear similar to the prior examination. No new opacities identified. D/ / Cayetano Man MD / Cayetano Man MD Interpreting Provider: Cayetano Man MD Consult Discharge Plan - Plan Referrals: Corry Wang CNP [Primary Care Provider] - 06/11/18 1:00 pm Hong Tate CNP [Advanced Practice Nurse] - (office will call patient at home with follow up appointment) Sylvester Gurrola MD [Partnered Physician] - 06/27/18 1:30 pm - Attending Attestation I examined this patient and my medical decision-making was reviewed with the Resident Physician Dr Ashraf. I agree with the documented findings, disposition and treatment plan as described except to the extent set forth below. Mr Velasquez was admitted 05/28/18 with chest pain, had LHC that showed severe 3V disease and had CABG preformed 05/30/18. He has pmhx of hld and family hx of CAD with premature . On 06/05/18 he he developed emesis, right sided abd pain, lethargy and had melanotic stool with surrounding bright red blood. His heparin and asa were discontinued, placed on ppi gtt and gi consulted. Severe 3V CAD s/p CABG 05/30/18 -CT surg following -cont statin, metorpol, amio -asa held for gi bleed -fu CT surg recs Acute GIB with hematochezia and melena -gi following -ct a/p mod distension stomach and duodenum without transition point, possible post op ileus, no free air or high grade obstruction -egd 06/05/18 many non bleeding duodenal ulcers ith adherant clot largest 3cm, ulcers both cratered and superficial, no active bleeding -cont PPI gtt (start date/time 06/05 at 0330 am) -fu gi recs Acute Anemia 2/2 blood loss from GIB Hgb 16 on admit, drop to 12.6 on 05/30 then to 8.2 on 06/05 with gib currently 8-8.2 last 24 hrs Hemodynamically stable normotensive and normal hr -received 4 units prbc 06/05 -serial h/hs q 6 hrs -transfuse hgb <8 Leukocytosis post op with wbc 14.7-23.3 peak on 06/05) now down trending, afebrile, may be reactive to surgery and complicated by GI bleed Lactate 2.8 yesterday and wnl today -monitor for fever -CXR 06/06 with bandlike opacities right base thought to be atelectasis similar to prior cxr -if develops fever check bl cxs -send ua with reflex to cx -no abx at this time and cont to monitor <Vladimir Ashraf - Last Filed: 06/06/18 16:42> Hospitalist Progress Note - Encounter Date of Encounter: 06/06/18 Time of Encounter: 09:15 - Subjective Interval History: Mr. Velasquez is a 57M with PMH of hyperlipidemia and significant family hx of CAD with premature . He originally presented to the ED on 05/27 complaining of sudden onset substernal chest pain and pressure associated with nausea, diaphoresis, shortness of breath, and radiation to his left arm. He also experienced diaphoresis and dyspnea. The chest pain had been occurring for the past 24 hours and was relieved after 3 doses of Nitroglycerin. EKG showed normal sinus rhythm. CXR revealed possible left lower lobe PNA. Serial troponins were negative. Cardiology was consulted. Echo was normal. Nuclear stress test was normal. Underwent LHC on 05/28 which revealed triple vessel disease with Left main disease. Underwent 3 vessel CABG on 05/30. He was recovering well post operatively until 06/05 when he had a near syncopal episode while getting up to use the restroom. At that time he had some hematochezia, followed by melanotic diarrhea. Underwent EGD that day which revealed multiple cratered and superficial duodenal ulcers with adherent clots. No active bleeding was noted at that time. Pt was transfused a total of 5 units pRBCs with the most recent being transfused this morning (06/06). Pt seen and examined at bedside. Mild distress. No new or acute complaints. States he feels "tired". Endorses pain is well controlled with medication. Denies fever, chills, abdominal pain, nausea, vomiting, headache, numbness, or tingling. Denies any continue melanotic or bright red blood stools. Pt's and daughter are in the room and state the same. - Exam Vitals: Temp Pulse Resp BP Pulse Ox 98.9 F 90 16 118/53 99 06/06/18 00:49 06/06/18 00:49 06/06/18 00:49 06/06/18 00:49 06/06/18 00:49 Exam: Constitutional: well developed, well nourished. mild distress Head: normocephalic and atraumatic Eyes: PERRL, EOMI. no scleral icterus Neck: supple, trachea midline. no lymphadenopathy Lungs: CTA bilaterally. non-labored breathing. No wheezes, rales, or rhonchi. Heart: RRR +s1 +s2. no murmurs, clicks, or rubs GI: abdomen soft, non-tender, mildly distended Extremities: radial pulses palpable and symmetrical. no cyanosis or edema. Neuro: A&Ox3. no focal deficits. no speech difficulty or abnormality Skin: warm, dry, intact. Midline sternotomy incision clean, dry, and intact with dressing in place. - Assessment and Plan (1) Duodenal ulcer Current Visit: Yes Status: Acute Assessment and Plan: Pt had episodes of hematochezia and melatonic stools on 06/05 Underwent EGD which revealed multiple cratered and superficial duodenal ulcers with adherent clots. Currently on Protonix drip. Continue Added Carafate QID since restarting cardiac diet Diet restarted per CT surg (2) Anemia Current Visit: Yes Status: Acute Assessment and Plan: Hgb dropped from 10.9 to 8.2 on 06/05 Transfused 5u pRBCs starting 06/05 at 06:00 2/2 multiple duodenal ulcers H&H trended q6h No obvious bleeding at this time. No hematemesis, no melena, no hematochezia. Most recent from today around 10:00 was 8.7 and 25.6. Pt is also receiving IVF Continue serial H&H q6h Transfuse as needed (3) CAD (coronary artery disease) Current Visit: Yes Status: Acute Assessment and Plan: Plan as above for CABG Continue Crestor 40mg qd in light of strong family hx of CAD with premature and significant hyperlipidemia as seen on 05/28 labs (4) Triple vessel coronary artery disease Current Visit: Yes Status: Acute Assessment and Plan: LHC on 05/28 revealed triple vessel CAD with left main disease. CABG on 05/30 Continue ASA Contine Crestor 40mg qd Continue Metoprolol 25mg BID Management of post-op care per CT surgery DVT Prophylaxis: Holding AC at this time with acute GI bleed - Time Spent with Patient Total time spent is greater than 50% in coordination of care (as documented) at patient's floor/unit and/or counseling patient: Internal Medicine: Result - Labs CBC & Chem 7: 06/06/18 01:50 06/06/18 00:01 Labs: Short CBC 06/05/18 06/05/18 Range/Units 12:18 20:05 WBC 23.3 H 19.0 H (4.3-11.1) K/mcL Hgb 8.1 L 8.0 L (12.9-16.9) g/dL Hct 24.2 L 23.4 L (37.5-50.1) % Plt Count 222 226 (140-400) K/mcL Neutrophils # 17.1 H 12.9 H (1.6-8.9) K/mcL BMP 06/05/18 06/05/18 12:18 20:05 Sodium 133 L 136 Potassium 4.2 D 3.8 Chloride 102 105 Carbon Dioxide 26 27 BUN 47 H 43 H Creatinine 1.10 0.98 Glucose 132 H 118 H Calcium 7.4 L 7.7 L - ABG Interpretation ABG results: ABG ABG pH 7.34 pH Units (7.32-7.45) 05/30/18 20:09 ABG pCO2 50 mmHg (35-45) H 05/30/18 20:09 ABG pO2 95 mmHg (85-104) 05/30/18 20:09 ABG O2 Saturation 97 % (95-98) 05/30/18 20:09 PT/INR, D-dimer PT 18.1 Seconds (9.4-12.1) H 06/05/18 03:38 - VTE Documentation of Mechanical Device: Graduated compression elastic hosiery <Ayesha Martinez M - Last Filed: 06/06/18 13:56> (1) CAD (coronary artery disease) Qualifiers: Coronary Disease-Associated Artery/Lesion type: [place] artery [place] vs. transplanted heart: [place] heart Associated angina: with unstable angina Qualified Code(s): I25.110 - Atherosclerotic heart disease of [place] coronary artery with unstable angina pectoris <Vladimir Ashraf A - Last Filed: 06/06/18 16:42> (2) Anemia Qualifiers: Anemia type: iron deficiency Iron deficiency anemia type: other iron deficiency Qualified Code(s): D50.8 - Other iron deficiency anemias (3) CAD (coronary artery disease) Qualifiers: Coronary Disease-Associated Artery/Lesion type: [place] artery [place] vs. transplanted heart: [place] heart Associated angina: with unstable angina Qualified Code(s): I25.110 - Atherosclerotic heart disease of [place] coronary artery with unstable angina pectoris
[2018-06-06 12:22] LABS: BUN/Creatinine Ratio 39 (6-26); Blood Urea Nitrogen 35 mg/dL (6-20); Calcium 7.6 mg/dL (8.6-10.3); Carbon Dioxide 26 mEq/L (23-29); Chloride 105 mEq/L (98-107); Glucose 120 mg/dL (70-105); Osmolality,Calculated 291 (280-300); Potassium 3.7 mEq/L (3.5-5.1); Sodium 136 mEq/L (136-145); eGFR For Non-African Americans > 60 (> 60)
[2018-06-06] MEDS ORDERED: Ringers Solution, Lactated 1,000 ML IV.SOLN IV ONE (12:29)
[2018-06-06] MEDS ORDERED: Pantoprazole 40 MG VIAL IVC ONE (12:29)
[2018-06-06] MEDS ORDERED: *HR* Amiodarone Premix 360 MG/200 ML BAG IVC ONE (12:29)
[2018-06-06] MEDS ORDERED: *HR* Amiodarone 200 MG TABLET PO ONE (12:29)
[2018-06-06] MEDS ORDERED: *HR* Promethazine 25 MG/ML VIAL IV ONE (12:29)
[2018-06-06] MEDS ORDERED: 0.9 % Sodium Chloride (Mini-Bag +) 100 ML IVBAG IVC ONE (12:29)
[2018-06-06] MEDS: Pantoprazole 40 MG in 0.9 % Sodium Chloride Mini Bag 100 ML IVC SCH ×5 (12:45→21:00)
[2018-06-06] MEDS: *HR* Promethazine 25 MG/ML VIAL IVP PRN ×2 (13:10→18:57)
[2018-06-06] MEDS: Chlorhexidine Rinse 15 ML MOUTHWASH MM SCH ×2 (13:10→20:58)
[2018-06-06 16:38] LABS: Bilirubin,Urine Negative (Negative); Blood,Urine Negative (Negative); Clarity,Urine Clear (Clear); Color,Urine Yellow (Yellow); Glucose,Urine (UA) Normal (Normal); Ketones,Urine Negative (Negative); Leukocyte Esterase,Urine Negative (Negative); Nitrite,Urine Negative (Negative); PH,Urine 6.5 pH Units (5.0-8.0); Protein,Urine Negative (Neg-Trace); Specific Gravity,Urine 1.018 (1.010-1.025)
[2018-06-06 16:43] LABS: Hematocrit 25.6 % (37.5-50.1); Hemoglobin 8.7 g/dL (12.9-16.9)
[2018-06-06] MEDS: Sucralfate 1 GM TABLET PO SCH ×2 (17:14→20:59)
[2018-06-06 17:15] LABS: Hematocrit 25.6 % (37.5-50.1); Hemoglobin 8.7 g/dL (12.9-16.9)
[2018-06-06 20:39] LABS: Hematocrit 26.4 % (37.5-50.1); Hemoglobin 8.8 g/dL (12.9-16.9)
[2018-06-06] MEDS: *HR* Amiodarone 200 MG TABLET PO SCH (20:58)
[2018-06-07] MEDS: Insulin LISPRO 300 UNITS/3 ML VIAL SQ SCH ×5 (00:13→20:51)
[2018-06-07] MEDS: Ondansetron 4 MG/2 ML VIAL IVP PRN (00:14)
[2018-06-07] MEDS: Pantoprazole 40 MG in 0.9 % Sodium Chloride Mini Bag 100 ML IVC SCH ×3 (01:20→11:03)
[2018-06-07] MEDS: traMADol 50 MG TABLET PO PRN ×2 (01:20→18:45)
[2018-06-07 03:05] LABS: Basophils # 0.1 K/mcL (0.0-0.2); Basophils % 0.4 %; Eosinophils # 0.3 K/mcL (0.0-0.6); Eosinophils % 1.9 %; Hematocrit 25.2 % (37.5-50.1); Hemoglobin 8.3 g/dL (12.9-16.9); Immature Granulocytes % 3.8 % (0-4); Lymphocytes # 2.7 K/mcL (0.6-4.6); Lymphocytes % 15.4 %; Mean Corpuscular HGB Conc 32.9 g/dL (31.6-35.5); Mean Corpuscular Hemoglobin 30.3 pg (28.0-33.3); Mean Platelet Volume 9.4 fL (9.4-12.4); Monocytes % 11.1 %; Neutrophils # 11.9 K/mcL (1.6-8.9); Nucleated Red Blood Cells 0.7 /100 WBC (0); Platelet Count 243 K/mcL (140-400); Red Blood Count 2.74 M/mcL (4.19-5.50); Red Cell Distribution Width 14.6 % (11.5-14.5); Segmented Neutrophils % 67.4 %
[2018-06-07 03:21] LABS: BUN/Creatinine Ratio 30 (6-26); Blood Urea Nitrogen 24 mg/dL (6-20); Calcium 7.8 mg/dL (8.6-10.3); Carbon Dioxide 27 mEq/L (23-29); Chloride 104 mEq/L (98-107); Glucose 111 mg/dL (70-105); Osmolality,Calculated 287 (280-300); Potassium 3.9 mEq/L (3.5-5.1); Sodium 136 mEq/L (136-145); eGFR For Non-African Americans > 60 (> 60)
--- NOTE | 2018-06-07 08:00 | Cardiothoracic Progress Note ---
Date of Encounter: 06/07/18 Time of Encounter: 07:58 - Assessment and plan (1) CAD (coronary artery disease) Current Visit: Yes Status: Acute We will ambulate the patient and order low-dose Lasix. Hopefully, he can go home this weekend. Qualifiers: Coronary Disease-Associated Artery/Lesion type: [place] artery [place] vs. transplanted heart: [place] heart Associated angina: with unstable angina Qualified Code(s): I25.110 - Atherosclerotic heart disease of [place] coronary artery with unstable angina pectoris - Subjective Interval history: The patient is sleeping well. He is tolerating his diet. Vital Signs, Last 4 Hours Resp Pulse Ox 06/07/18 07:52 18 99 [place] Flow Rate Oxygen Flow Rate (LPM) 2 Weight 06/05/18 06/06/18 06/07/18 23:59 23:59 23:59 Weight 115.5 kg 114.9 kg Lungs are clear to percussion and auscultation. Heart is in a normal sinus rhythm. All incisions are healing well without signs of infection and the sternum is stable. - Labs 06/07/18 02:44 06/07/18 02:44 Lab Results, Last 24 hours 06/06/18 06/06/18 06/06/18 00:01 01:50 09:54 WBC 18.7 H Hgb 8.2 L 8.7 L Hct 24.6 L 25.6 L Plt Count 236 Sodium 136 Potassium 3.7 Chloride 105 Carbon Dioxide 26 BUN 35 H Creatinine 0.90 Glucose 120 H Calcium 7.6 L 06/06/18 06/06/18 06/06/18 09:54 09:54 20:28 WBC Hgb 8.7 L 8.8 L Hct 25.6 L 26.4 L Plt Count Sodium Potassium 3.9 Chloride Carbon Dioxide BUN Creatinine Glucose Calcium 06/07/18 06/07/18 02:44 02:44 WBC 17.7 H Hgb 8.3 L Hct 25.2 L Plt Count 243 Sodium 136 Potassium 3.9 Chloride 104 Carbon Dioxide 27 BUN 24 H Creatinine 0.79 Glucose 111 H Calcium 7.8 L - VTE Documentation of Mechanical Device: Graduated compression elastic hosiery Consult Discharge Plan - Plan Referrals: Corry Wang CNP [Primary Care Provider] - 06/11/18 1:00 pm Hong Tate CNP [Advanced Practice Nurse] - (office will call patient at home with follow up appointment) Sylvester Gurrola MD [Partnered Physician] - 06/27/18 1:30 pm
[2018-06-07] MEDS: *HR* Amiodarone 200 MG TABLET PO SCH ×2 (08:10→20:51)
[2018-06-07] MEDS: Chlorhexidine Rinse 15 ML MOUTHWASH MM SCH ×2 (08:10→20:51)
[2018-06-07] MEDS: Sucralfate 1 GM TABLET PO SCH ×4 (08:10→20:51)
[2018-06-07 08:22] LABS: Hematocrit 26.2 % (37.5-50.1); Hemoglobin 8.6 g/dL (12.9-16.9)
--- NOTE | 2018-06-07 08:27 | Internal Med Progress Note ---
<Ayesha Martinez - Last Filed: 06/07/18 12:57> Hospitalist Progress Note - Exam Vitals: Temp Pulse Resp BP Pulse Ox 97.7 F 77 20 133/45 94 06/07/18 10:42 06/07/18 12:09 06/07/18 12:09 06/07/18 10:42 06/07/18 10:42 - Assessment and Plan (1) CAD (coronary artery disease) Current Visit: Yes Status: Acute (2) Triple vessel coronary artery disease Current Visit: Yes Status: Acute - Time Spent with Patient Total time spent is greater than 50% in coordination of care (as documented) at patient's floor/unit and/or counseling patient: Internal Medicine: Result - Labs CBC & Chem 7: 06/07/18 07:58 06/07/18 02:44 Labs: Short CBC 06/06/18 06/06/18 06/06/18 Range/Units 09:54 09:54 20:28 WBC (4.3-11.1) K/mcL Hgb 8.7 L 8.7 L 8.8 L (12.9-16.9) g/dL Hct 25.6 L 25.6 L 26.4 L (37.5-50.1) % Plt Count (140-400) K/mcL Neutrophils # (1.6-8.9) K/mcL 06/07/18 06/07/18 Range/Units 02:44 07:58 WBC 17.7 H (4.3-11.1) K/mcL Hgb 8.3 L 8.6 L (12.9-16.9) g/dL Hct 25.2 L 26.2 L (37.5-50.1) % Plt Count 243 (140-400) K/mcL Neutrophils # 11.9 H (1.6-8.9) K/mcL BMP 06/06/18 06/07/18 09:54 02:44 Sodium 136 Potassium 3.9 3.9 Chloride 104 Carbon Dioxide 27 BUN 24 H Creatinine 0.79 Glucose 111 H Calcium 7.8 L Urine 06/06/18 Range/Units 16:19 Urine Color Yellow (Yellow) Urine Clarity Clear (Clear) Urine pH 6.5 (5.0-8.0) pH Units Ur Specific [place] 1.018 (1.010-1.025) Urine Protein Negative (Neg-Trace) mg/dL Urine Glucose (UA) Normal (Normal) mg/dL - ABG Interpretation ABG results: ABG ABG pH 7.34 pH Units (7.32-7.45) 05/30/18 20:09 ABG pCO2 50 mmHg (35-45) H 05/30/18 20:09 ABG pO2 95 mmHg (85-104) 05/30/18 20:09 ABG O2 Saturation 97 % (95-98) 05/30/18 20:09 PT/INR, D-dimer PT 18.1 Seconds (9.4-12.1) H 06/05/18 03:38 Consult Discharge Plan - Plan Referrals: Corry Wang CNP [Primary Care Provider] - 06/11/18 1:00 pm Hong Tate CNP [Advanced Practice Nurse] - (office will call patient at home with follow up appointment) Sylvester Gurrola MD [Partnered Physician] - 06/27/18 1:30 pm - Attending Attestation I examined this patient and my medical decision-making was reviewed with the Resident Physician Dr Ashraf. I agree with the documented findings, disposition and treatment plan as described except to the extent set forth below. Mr Velasquez was admitted 05/28/18 with chest pain, had LHC that showed severe 3V disease and had CABG preformed 05/30/18. He has pmhx of hld and family hx of CAD with premature . On 06/05/18 he he developed emesis, right sided abd pain, lethargy and had melanotic stool with surrounding bright red blood. His heparin and asa were discontinued, placed on ppi gtt and gi consulted. Asleep,a wakes to name family at bedside. no cp, pressure, sob, presyncope. Eating and drinking without adb pain. No bloody bms, melena or emesis. gen- alert, awake,appears stated age eyes- pupils equal round , no conjunctival pallor cv- reg rate and rhythm, normal s1,s2, no murmurs appreciated, trace pitting le edema lungs- ctabl, no wheezing, rhonchi or crackles, normal resp effort abd- soft, non tender, no guarding, non distended, + bs skin- warm, dry, no pallor neuro- AAOx3 Severe 3V CAD s/p CABG 05/30/18 -CT surg following -cont statin, metorpol, amio -asa held for gi bleed -will contact Dr Gurrola team to get disp recs in prep for possible weekend dc Acute GIB with hematochezia and melena, resolved -gi following -ct a/p mod distension stomach and duodenum without transition point, possible post op ileus, no free air or high grade obstruction -egd 06/05/18 many non bleeding duodenal ulcers with adherant clot largest 3cm, ulcers both cratered and superficial, no active bleeding -dc ppi gtt and change to bid dosing + carafate Acute Anemia 2/2 blood loss from GIB Hgb 16 on admit, drop to 12.6 on 05/30 then to 8.2 on 06/05 with gib currently 8.2-8.8 last 24 hrs -received 4 units prbc 06/05 -cont to monitor hgb transfuse hgb <8 Leukocytosis post op with wbc 14.7-23.3 peak on 06/05) now down trending, afebrile, may be reactive to surgery and complicated by GI bleed Lactate wnl, afebrile -CXR 06/06 with bandlike opacities right base thought to be atelectasis similar to prior cxr -if develops fever check bl cxs -ua neg -no abx at this time and cont to monitor dispo will be to home with family and no home needs when med stable <Vladimir Ashraf - Last Filed: 06/07/18 18:10> Hospitalist Progress Note - Encounter Date of Encounter: 06/07/18 Time of Encounter: 09:35 - Subjective Interval History: Mr. Velasquez is a 57M with PMH of hyperlipidemia and significant family hx of CAD with premature . He originally presented to the ED on 05/27 complaining of sudden onset substernal chest pain and pressure associated with nausea, diaphoresis, shortness of breath, and radiation to his left arm. He also experienced diaphoresis and dyspnea. The chest pain had been occurring for the past 24 hours and was relieved after 3 doses of Nitroglycerin. EKG showed normal sinus rhythm. CXR revealed possible left lower lobe PNA. Serial troponins were negative. Cardiology was consulted. Echo was normal. Nuclear stress test was normal. Underwent C on 05/28 which revealed triple vessel disease with Left main disease. Underwent 3 vessel CABG on 05/30. He was recovering well post operatively until 06/05 when he had a near syncopal episode while getting up to use the restroom. At that time he had some hematochezia, followed by melanotic diarrhea. Underwent EGD that day which revealed multiple cratered and superficial duodenal ulcers with adherent clots. No active bleeding was noted at that time. Pt was transfused a total of 5 units pRBCs with the most recent being transfused the morning of 06/06. Pt seen and examined at bedside. Mild distress. No new or acute complaints. States he feels "tired". Endorses pain is well controlled with medication. Denies fever, chills, abdominal pain, nausea, vomiting, headache, numbness, or tingling. Denies any continue melanotic or bright red blood stools. Pt's is in the room and state the same. - Exam Vitals: Temp Pulse Resp BP Pulse Ox 98.4 F 84 20 126/71 94 06/07/18 03:13 06/07/18 08:12 06/07/18 08:12 06/07/18 03:13 06/07/18 08:12 Exam: Constitutional: well developed, well nourished. mild distress Head: normocephalic and atraumatic Eyes: PERRL, EOMI. no scleral icterus Neck: supple, trachea midline. no lymphadenopathy Lungs: CTA bilaterally. non-labored breathing. No wheezes, rales, or rhonchi. Heart: RRR +s1 +s2. no murmurs, clicks, or rubs GI: abdomen soft, non-tender, mildly distended Extremities: radial pulses palpable and symmetrical. no cyanosis or edema. Neuro: A&Ox3. no focal deficits. no speech difficulty or abnormality Skin: warm, dry, intact. Midline sternotomy incision clean, dry, and intact with dressing in place. - Assessment and Plan (1) Duodenal ulcer Current Visit: Yes Status: Acute Assessment and Plan: Pt had episodes of hematochezia and melatonic stools on 06/05 Underwent EGD which revealed multiple cratered and superficial duodenal ulcers with adherent clots. Spoke with GI. Appreciate recs Transition from Protonix drip to 40mg IV BID. Will need 2 weeks of BID PPI, followed by 1 week daily PPI on discharge. No GI specific f/u needed unless symptoms reoccur. Continue Carafate QID (2) Anemia Current Visit: Yes Status: Acute Assessment and Plan: Hgb dropped from 10.9 to 8.2 on 06/05 Transfused 5u pRBCs starting 06/05 at 06:00 2/2 multiple duodenal ulcers H&H trended q6h No obvious bleeding at this time. No hematemesis, no melena, no hematochezia. Stable now with most recent H&H 8.6 and 26.2 Transfuse as needed (3) Leukocytosis Current Visit: Yes Status: Acute Assessment and Plan: Leukocytosis post op with peak at 23.3 peak on 06/05 (day of GI bleed) Trending down at 17.7 today Lactate max of 2.8 morning of 06/05 but decreased to 1.8 that same day CXR 06/06 with bandlike opacities right base thought to be atelectasis similar to prior cxr Currently Afebrile, but if fever develops can obtains blood cultures UA negative No increased cough or sputum production No abx at this time Continue to monitor (4) Triple vessel coronary artery disease Current Visit: Yes Status: Acute Assessment and Plan: LHC on 05/28 revealed triple vessel CAD with left main disease. CABG on 05/30 Continue ASA Contine Crestor 40mg qd Continue Metoprolol 25mg BID Management of post-op care per CT surgery (5) CAD (coronary artery disease) Current Visit: Yes Status: Acute Assessment and Plan: Plan as above for CABG Continue Crestor 40mg qd in light of strong family hx of CAD with premature [place] th and significant hyperlipidemia as seen on 05/28 labs DVT Prophylaxis: Holding at this time with recent GI bleed from duodenal ulcers - Time Spent with Patient Total time spent is greater than 50% in coordination of care (as documented) at patient's floor/unit and/or counseling patient: Internal Medicine: Result - Labs CBC & Chem 7: 06/07/18 07:58 06/07/18 02:44 Labs: Short CBC 06/06/18 06/06/18 06/06/18 Range/Units 01:50 09:54 09:54 WBC 18.7 H (4.3-11.1) K/mcL Hgb 8.2 L 8.7 L 8.7 L (12.9-16.9) g/dL Hct 24.6 L 25.6 L 25.6 L (37.5-50.1) % Plt Count 236 (140-400) K/mcL Neutrophils # 12.5 H (1.6-8.9) K/mcL 06/06/18 06/07/18 Range/Units 20:28 02:44 WBC 17.7 H (4.3-11.1) K/mcL Hgb 8.8 L 8.3 L (12.9-16.9) g/dL Hct 26.4 L 25.2 L (37.5-50.1) % Plt Count 243 (140-400) K/mcL Neutrophils # 11.9 H (1.6-8.9) K/mcL BMP 06/06/18 06/06/18 06/07/18 00:01 09:54 02:44 Sodium 136 136 Potassium 3.7 3.9 3.9 Chloride 105 104 Carbon Dioxide 26 27 BUN 35 H 24 H Creatinine 0.90 0.79 Glucose 120 H 111 H Calcium 7.6 L 7.8 L Urine 06/06/18 Range/Units 16:19 Urine Color Yellow (Yellow) Urine Clarity Clear (Clear) Urine pH 6.5 (5.0-8.0) pH Units Ur Specific [place] 1.018 (1.010-1.025) Urine Protein Negative (Neg-Trace) mg/dL Urine Glucose (UA) Normal (Normal) mg/dL - ABG Interpretation ABG results: ABG ABG pH 7.34 pH Units (7.32-7.45) 05/30/18 20:09 ABG pCO2 50 mmHg (35-45) H 05/30/18 20:09 ABG pO2 95 mmHg (85-104) 05/30/18 20:09 ABG O2 Saturation 97 % (95-98) 05/30/18 20:09 PT/INR, D-dimer PT 18.1 Seconds (9.4-12.1) H 06/05/18 03:38 - Impressions Impressions Chest X-Ray 06/06/18 11:52 IMPRESSION: Bandlike opacities in the right base are favored to represent subsegmental atelectasis. Findings appear similar to the prior examination. No new opacities identified. D/ / Cayetano Man MD / Cayetano Man MD Interpreting Provider: Cayetano Man MD - VTE Documentation of Mechanical Device: Graduated compression elastic hosiery <Ayesha Martinez - Last Filed: 06/07/18 12:57> (1) CAD (coronary artery disease) Qualifiers: Coronary Disease-Associated Artery/Lesion type: [place] artery [place] vs. tr ansplanted heart: [place] heart Associated angina: with unstable angina Qualified Code(s): I25.110 - Atherosclerotic heart disease of [place] coronary artery with unstable angina pectoris <Vladimir Ashraf A - Last Filed: 06/07/18 18:10> (2) Anemia Qualifiers: Anemia type: iron deficiency Iron deficiency anemia type: other iron deficiency Qualified Code(s): D50.8 - Other iron deficiency anemias (5) CAD (coronary artery disease) Qualifiers: Coronary Disease-Associated Artery/Lesion type: [place] artery [place] vs. transplanted heart: [place] heart Associated angina: with unstable angina Qualified Code(s): I25.110 - Atherosclerotic heart disease of [place] coronary artery with unstable angina pectoris
[2018-06-07] MEDS: Furosemide 20 MG/2 ML VIAL IVP SCH ×2 (08:52→16:43)
[2018-06-07] MEDS: Pantoprazole 40 MG VIAL IVP SCH (16:43)
[2018-06-08 00:40] LABS: Basophils # 0.1 K/mcL (0.0-0.2); Basophils % 0.4 %; Eosinophils # 0.4 K/mcL (0.0-0.6); Eosinophils % 2.3 %; Hematocrit 25.3 % (37.5-50.1); Hemoglobin 8.4 g/dL (12.9-16.9); Lymphocytes # 2.4 K/mcL (0.6-4.6); Lymphocytes % 15.4 %; Mean Corpuscular HGB Conc 33.2 g/dL (31.6-35.5); Mean Corpuscular Hemoglobin 30.5 pg (28.0-33.3); Mean Platelet Volume 9.7 fL (9.4-12.4); Monocytes # 1.9 K/mcL (0.0-1.3); Monocytes % 11.9 %; Neutrophils # 10.6 K/mcL (1.6-8.9); Nucleated Red Blood Cells 0.3 /100 WBC (0); Platelet Count 260 K/mcL (140-400); Red Blood Count 2.75 M/mcL (4.19-5.50); Red Cell Distribution Width 14.3 % (11.5-14.5)
[2018-06-08 00:55] LABS: BUN/Creatinine Ratio 24 (6-26); Blood Urea Nitrogen 21 mg/dL (6-20); Carbon Dioxide 26 mEq/L (23-29); Chloride 99 mEq/L (98-107); Glucose 113 mg/dL (70-105); Osmolality,Calculated 278 (280-300); Potassium 3.8 mEq/L (3.5-5.1); Sodium 132 mEq/L (136-145); eGFR For Non-African Americans > 60 (> 60)
[2018-06-08] MEDS: traMADol 50 MG TABLET PO PRN ×2 (01:30→20:42)
[2018-06-08] MEDS: Pantoprazole 40 MG VIAL IVP SCH ×2 (05:41→16:25)
[2018-06-08] MEDS: Insulin LISPRO 300 UNITS/3 ML VIAL SQ SCH ×4 (07:44→20:49)
[2018-06-08] MEDS: Sucralfate 1 GM TABLET PO SCH ×4 (07:46→20:42)
[2018-06-08] MEDS: *HR* Amiodarone 200 MG TABLET PO SCH (07:46)
[2018-06-08] MEDS: Chlorhexidine Rinse 15 ML MOUTHWASH MM SCH ×2 (07:47→20:42)
[2018-06-08] MEDS: Furosemide 20 MG/2 ML VIAL IVP SCH (07:47)
--- NOTE | 2018-06-08 09:18 | Cardiothoracic Progress Note ---
Date of Encounter: 06/08/18 Time of Encounter: 09:16 - Assessment and plan (1) CAD (coronary artery disease) Current Visit: Yes Status: Acute I will plan to discharge the patient tomorrow. Qualifiers: Coronary Disease-Associated Artery/Lesion type: [place] artery [place] vs. transplanted heart: [place] heart Associated angina: with unstable angina Qualified Code(s): I25.110 - Atherosclerotic heart disease of [place] coronary artery with unstable angina pectoris - Subjective Interval history: The patient is ambulating and tolerating his diet and has no complaints. Vital Signs, Last 4 Hours Temp Pulse Resp BP Pulse Ox 06/08/18 08:06 80 06/08/18 07:21 98.3 F 79 18 126/75 94 [place] Flow Rate Oxygen Flow Rate (LPM) 2 Clinical Data, last 8 Hours Output, Urine Amount 300 Output, Urine Amount 300 Weight 06/06/18 06/07/18 06/08/18 23:59 23:59 23:59 Weight 114.9 kg 115.2 kg Lungs are clear to percussion and auscultation. Heart is in a normal sinus rhythm. All incisions are healing well without signs of infection and the sternum is stable. - Labs 06/08/18 00:10 06/08/18 00:10 Lab Results, Last 24 hours 06/08/18 06/08/18 00:10 00:10 WBC 15.9 H Hgb 8.4 L Hct 25.3 L Plt Count 260 Sodium 132 L Potassium 3.8 Chloride 99 Carbon Dioxide 26 BUN 21 H Creatinine 0.88 Glucose 113 H Calcium 8.0 L - VTE Documentation of Mechanical Device: Graduated compression elastic hosiery Consult Discharge Plan - Plan Referrals: Corry Wang CNP [Primary Care Provider] - 06/11/18 1:00 pm Hong Tate CNP [Advanced Practice Nurse] - (office will call patient at home with follow up appointment) Sylvester Gurrola MD [Partnered Physician] - 06/27/18 1:30 pm
--- NOTE | 2018-06-08 10:54 | Internal Med Progress Note ---
<Ayesha Martinez - Last Filed: 06/08/18 13:05> Hospitalist Progress Note - Exam Vitals: Temp Pulse Resp BP Pulse Ox 98.3 F 80 18 120/62 94 06/08/18 11:19 06/08/18 11:19 06/08/18 11:19 06/08/18 11:19 06/08/18 11:19 - Assessment and Plan (1) CAD (coronary artery disease) Current Visit: Yes Status: Acute (2) Triple vessel coronary artery disease Current Visit: Yes Status: Acute - Time Spent with Patient Total time spent is greater than 50% in coordination of care (as documented) at patient's floor/unit and/or counseling patient: Internal Medicine: Result - Labs CBC & Chem 7: 06/08/18 00:10 06/08/18 00:10 Labs: Short CBC 06/08/18 Range/Units 00:10 WBC 15.9 H (4.3-11.1) K/mcL Hgb 8.4 L (12.9-16.9) g/dL Hct 25.3 L (37.5-50.1) % Plt Count 260 (140-400) K/mcL Neutrophils # 10.6 H (1.6-8.9) K/mcL BMP 06/08/18 00:10 Sodium 132 L Potassium 3.8 Chloride 99 Carbon Dioxide 26 BUN 21 H Creatinine 0.88 Glucose 113 H Calcium 8.0 L - ABG Interpretation ABG results: ABG ABG pH 7.34 pH Units (7.32-7.45) 05/30/18 20:09 ABG pCO2 50 mmHg (35-45) H 05/30/18 20:09 ABG pO2 95 mmHg (85-104) 05/30/18 20:09 ABG O2 Saturation 97 % (95-98) 05/30/18 20:09 PT/INR, D-dimer PT 18.1 Seconds (9.4-12.1) H 06/05/18 03:38 Consult Discharge Plan - Plan Referrals: Corry Wang CNP [Primary Care Provider] - 06/11/18 1:00 pm Hong Tate ENVIRONMENTAL AIDE [Advanced Practice Nurse] - (office will call patient at home with follow up appointment) Sylvester Gurrola MD [Partnered Physician] - 06/27/18 1:30 pm - Attending Attestation I examined this patient and my medical decision-making was reviewed with the Resident Physician Dr Soria. I agree with the documented findings, disposition and treatment plan as described except to the extent set forth below. Mr Velasquez was admitted 05/28/18 with chest pain, had LHC that showed severe 3V disease and had CABG preformed 05/30/18. He has pmhx of hld and family hx of CAD with premature . On 06/05/18 he he developed emesis, right sided abd pain, lethargy and had melanotic stool with surrounding bright red blood. gi eval revealed duodenal ulcers. He is on PPI and carafate. awake, family at bedside. He is in chair on room air. No sob, chest pain or pressure. no abd pain, nausea or emesis. No bm, no melena, brbpr or hemato chezia. gen- alert, awake,appears stated age eyes- pupils equal round , no conjunctival pallor cv- reg rate and rhythm, normal s1,s2, no murmurs appreciated, no pitting le edema lungs- ctabl, no wheezing, rhonchi or crackles, normal resp effort on ra abd- soft, non tender, no guarding, non distended, + bs skin- warm, dry, no pallor neuro- AAOx3 Severe 3V CAD s/p CABG 05/30/18 -CT surg following -cont statin, metorpol, amio -asa held for gi bleed- resumed 06/08 in prep for dc later this weekend, monitor for bleeding -Dr Gurrola following this weekend Acute GIB with hematochezia and melena, resolved -gi followed -ct a/p mod distension stomach and duodenum without transition point, possible post op ileus, no free air or high grade obstruction -egd 06/05/18 many non bleeding duodenal ulcers with adherant clot largest 3cm, ulcers both cratered and superficial, no active bleeding -now on PPI bid dosing + carafate, gi aware will dc on asa and recs given for ppi and follow up as outpt Acute Anemia 2/2 blood loss from GIB, stable Hgb 16 on admit, drop to 12.6 on 05/30 then to 8.2 on 06/05 with gib remains stable last 24 hrs -received 4 units prbc 06/05 -cont to monitor hgb transfuse hgb <8 Leukocytosis post op with wbc 14.7-23.3 peak on 06/05) now down trending, af ebrile, may be reactive to surgery and complicated by GI bleed Lactate wnl, afebrile -CXR 06/06 with bandlike opacities right base thought to be atelectasis similar to prior cxr -if develops fever check bl cxs -ua neg -no abx at this time and cont to monitor dispo will be to home with family and no home needs when med stable, possibly as early as tomorrow <Ashley Soria - Last Filed: 06/08/18 16:17> Hospitalist Progress Note - Encounter Date of Encounter: 06/08/18 Time of Encounter: 10:45 - Subjective Interval History: Patient seen and examined. No acute events overnight. Patient is sitting comfortably in chair with at his side. He had just walked to and from the window with wifes help. Patient states he feels fine. Denies any complaints at this time. Denies chest pain. Denies shortness of breath. Denies abdominal pain, nausea/vomiting. States he hasnt had a bowel movement since GI bleed. Placed on diet yesterday, has been eating everything. Denies feeling constipated. Reports passing plenty of gas. - Exam Vitals: Temp Pulse Resp BP Pulse Ox 98.3 F 80 16 126/75 94 06/08/18 07:21 06/08/18 08:06 06/08/18 08:03 06/08/18 08:03 06/08/18 08:03 Exam: General: Obese. Alert and oriented x3. No acute distress. Head: atraumatic, normocephalic. Eye: pupils equal and round. Sclera anicteric. EOMI. Mouth: oral mucosa moist. Normal oropharynx. Neck: supple. Trachea midline. Lungs: CTAB. No rhonchi, rales, or wheezes. No respiratory distress. No accessory muscle use. Cardiovascular: Normal S1 & S2. No rubs or gallops. No JVD. Pulse regular. Abdomen: Normal bowel sounds. Nontender. No guarding, no rigidity, no rebound. Extremities: No joint swelling, edema, or clubbing. Nontender. Skin: warm, dry, and intact. - Assessment and Plan (1) Triple vessel coronary artery disease Current Visit: Yes Status: Acute Assessment and Plan: LHC on 05/28 revealed triple vessel CAD with left main disease. CABG on 05/30. Continue ASA. Contine Crestor 40mg qd Continue Metoprolol 25mg BID Management of post-op care per CT surgery (2) Duodenal ulcer Current Visit: Yes Status: Acute Assessment and Plan: Pt had episodes of hematochezia and melena on 06/05 Underwent EGD which revealed multiple cratered and superficial duodenal ulcers with adherent clots. Spoke with GI. Transitioned from Protonix drip to 40mg IV BID. Will need 2 weeks of BID PPI, followed by 1 week daily PPI on discharge. Continue Carafate QID. No GI specific f/u needed unless symptoms reoccur. (3) Anemia Current Visit: Yes Status: Acute Assessment and Plan: Hgb dropped from 10.9 to 8.2 on 06/05 Transfused 4u pRBCs starting 06/05 at 06:00 Secondary to multiple duodenal ulcers No obvious bleeding at this time. No hematemesis, no melena, no hematochezia. Hb stable now. Continue to monitor H&H. Transfuse if Hb <8. (4) Leukocytosis Current Visit: Yes Status: Acute Assessment and Plan: Leukocytosis post op with peak at 23.3 peak on 06/05 (day of GI bleed) Lactate max of 2.8 morning of 06/05 but decreased to 1.8 that same day UA negative CXR 06/06 with bandlike opacities right base thought to be atelectasis similar to prior cxr WBC downtrending. Currently afebrile, but if fever develops can obtain blood cultures No abx at this time. Continue to monitor. (5) CAD (coronary artery disease) Current Visit: Yes Status: Chronic Assessment and Plan: Plan as above for CABG Continue Crestor 40mg qd in light of strong family hx of CAD with premature and significant hyperlipidemia as seen on 05/28 labs DVT Prophylaxis: Holding at this time with recent GI bleed from duodenal ulcers - Time Spent with Patient Total time spent is greater than 50% in coordination of care (as documented) at patient's floor/unit and/or counseling patient: Internal Medicine: Result - Labs CBC & Chem 7: 06/08/18 00:10 06/08/18 00:10 Labs: Short CBC 06/08/18 Range/Units 00:10 WBC 15.9 H (4.3-11.1) K/mcL Hgb 8.4 L (12.9-16.9) g/dL Hct 25.3 L (37.5-50.1) % Plt Count 260 (140-400) K/mcL Neutrophils # 10.6 H (1.6-8.9) K/mcL BMP 06/08/18 00:10 Sodium 132 L Potassium 3.8 Chloride 99 Carbon Dioxide 26 BUN 21 H Creatinine 0.88 Glucose 113 H Calcium 8.0 L - ABG Interpretation ABG results: ABG ABG pH 7.34 pH Units (7.32-7.45) 05/30/18 20:09 ABG pCO2 50 mmHg (35-45) H 05/30/18 20:09 ABG pO2 95 mmHg (85-104) 05/30/18 20:09 ABG O2 Saturation 97 % (95-98) 05/30/18 20:09 PT/INR, D-dimer PT 18.1 Seconds (9.4-12.1) H 06/05/18 03:38 - VTE Documentation of Mechanical Device: Graduated compression elastic hosiery <Ayesha Martinez - Last Filed: 06/08/18 13:05> (1) CAD (coronary artery disease) Qualifiers: Coronary Disease-Associated Artery/Lesion type: [place] artery [place] vs. transplanted heart: [place] heart Associated angina: with unstable angina Qualified Code(s): I25.110 - Atherosclerotic heart disease of [place] coronary artery with unstable angina pectoris <Cho,Ashley - Last Filed: 06/08/18 16:17> (3) Anemia Qualifiers: Anemia type: iron deficiency Iron deficiency anemia type: other iron deficiency Qualified Code(s): D50.8 - Other iron deficiency anemias (5) CAD (coronary artery disease) Qualifiers: Coronary Disease-Associated Artery/Lesion type: [place] artery [place] vs. transplanted heart: [place] heart Associated angina: with unstable angina Qualified Code(s): I25.110 - Atherosclerotic heart disease of [place] coronary artery with unstable angina pectoris
[2018-06-08] MEDS: Aspirin Enteric Coated 81 MG Tablet PO SCH (11:20)
[2018-06-08] MEDS ORDERED: MOM Conc 10 ML UD.LIQ PO PRN (16:26)
[2018-06-09] MEDS: Pantoprazole 40 MG VIAL IVP SCH (05:20)
[2018-06-09 07:01] LABS: Basophils # 0.1 K/mcL (0.0-0.2); Basophils % 0.5 %; Eosinophils # 0.3 K/mcL (0.0-0.6); Eosinophils % 2.4 %; Hematocrit 25.4 % (37.5-50.1); Hemoglobin 8.2 g/dL (12.9-16.9); Immature Granulocytes % 1.9 % (0-4); Lymphocytes # 2.2 K/mcL (0.6-4.6); Lymphocytes % 15.5 %; Mean Corpuscular HGB Conc 32.3 g/dL (31.6-35.5); Mean Corpuscular Hemoglobin 29.7 pg (28.0-33.3); Mean Platelet Volume 9.5 fL (9.4-12.4); Monocytes # 1.6 K/mcL (0.0-1.3); Monocytes % 11.6 %; Neutrophils # 9.4 K/mcL (1.6-8.9); Platelet Count 315 K/mcL (140-400); Red Blood Count 2.76 M/mcL (4.19-5.50); Red Cell Distribution Width 14.4 % (11.5-14.5); Segmented Neutrophils % 68.1 %
[2018-06-09 07:20] LABS: BUN/Creatinine Ratio 23 (6-26); Blood Urea Nitrogen 17 mg/dL (6-20); Calcium 8.3 mg/dL (8.6-10.3); Carbon Dioxide 26 mEq/L (23-29); Chloride 103 mEq/L (98-107); Glucose 113 mg/dL (70-105); Osmolality,Calculated 282 (280-300); Potassium 3.9 mEq/L (3.5-5.1); Sodium 135 mEq/L (136-145); eGFR For Non-African Americans > 60 (> 60)
[2018-06-09 07:35] VITALS: BP 121/74
[2018-06-09] MEDS: Insulin LISPRO 300 UNITS/3 ML VIAL SQ SCH ×2 (08:37→12:21)
[2018-06-09] MEDS: Sucralfate 1 GM TABLET PO SCH ×2 (08:38→12:21)
[2018-06-09] MEDS: Aspirin Enteric Coated 81 MG Tablet PO SCH (08:38)
[2018-06-09] MEDS: Chlorhexidine Rinse 15 ML MOUTHWASH MM SCH (08:38)
--- NOTE | 2018-06-09 09:01 | Discharge Summary ---
Orders not resulted at time of discharge: Pending orders 06/05/18 03:13 EKG [ECG 12 lead ECG] [ECG] Stat 06/06/18 16:19 UA w. reflex culture [Urinalysis Reflex Cult & Micro] [URIN] Stat Date of Encounter: 06/09/18 Time of Encounter: 08:50 - Discharge Diagnosis (1) CAD (coronary artery disease) Status: Chronic Qualifiers: Coronary Disease-Associated Artery/Lesion type: [place] artery [place] vs. transplanted heart: [place] heart Associated angina: with unstable angina Qualified Code(s): I25.110 - Atherosclerotic heart disease of [place] coronary artery with unstable angina pectoris (2) Triple vessel coronary artery disease Status: Acute Hospital course: Mr. Velasquez is a 57 year old male Patient seen and examined. No acute events overnight. Patient is sitting comfortably in chair watching TV with family at his side. Patient states he feels fine. Denies any complaints at this time. States he made several bowel movements yesterday, all normal. Denies chest pain. Denies shortness of breath. Denies abdominal pain, nausea/vomiting. - Time Spent with Patient Total time spent providing and/or coordinating discharge services: - Discharge Medications Home Medications: Rosuvastatin [Crestor] 20 mg PO HS 05/27/18 [History] Allergies/Adverse Reactions: Allergy/AdvReac Type Severity Reaction Status Date / Time No Known Allergies Allergy Verified 05/27/18 22:00 Date of admission: 05/30/18 09:10 Primary care physician: Corry Wang CNP Consults: 05/28/18 02:36 Consult to Cardiology [CONS] Routine Comment: Consulting Provider: [facility] [place] Reason for Consult: chest pain relieved y NTG; strong FH premature CAD; brother of mI at 53 yo Call Completed: No 05/28/18 14:50 Consult to Cardiothoracic Surgery [CONS] Routine Consulting Provider: Cardiothoracic Surgery Francesca Reason for Consult: CAD, L main disease, eval for CABG Call Completed: Yes 05/30/18 12:05 Consult to Cardiac Rehabilitation-Phase1 [CONS] Routine Comment: Reason for Consult: Post open heart Call Completed: Yes Consult to Process Architect [CONS] Routine Reason for SW Consult: open heart 05/31/18 09:55 Consult for Pharmacy Education [CONS] Routine Reason for Consult: Post-Op Heart Call Completed: Yes Consult to Occupational Therapy [CONS] Routine Comment: Evaluate, develop and implement POC Reason for Consult: Post-Op Heart Does patient have active BEDREST order?: No Is patient medically & hemodynamically stable?: Yes Consult to Physical Therapy [CONS] Routine Comment: Evaluate, develop and implement POC Reason for Consult: Post open heart Does patient have active BEDREST order?: No Is patient medically & hemodynamically stable?: Yes 06/05/18 03:19 Consult to Gastroenterology [CONS] Routine Consulting Provider: Gastroenterology Francesca Reason for Consult: GI bleed Call Completed: No 06/05/18 15:45 Consult to Hospitalist [CONS] Routine Consulting Provider: Hospitalist Dewayne Reason for Consult: S/P CABG. GI BLEED. Call Completed: No - Constitutional Vitals: Temp Pulse Resp BP Pulse Ox 98.1 F 78 18 121/74 93 06/09/18 07:32 06/09/18 07:32 06/09/18 07:42 06/09/18 07:32 06/09/18 07:42 General appearance: Present: cooperative, A&O X 3, pleasant, no acute distress Exam: General: Obese. Alert and oriented x3. No acute distress. Head: atraumatic, normocephalic. Eye: pupils equal and round. Sclera anicteric. EOMI. Mouth: oral mucosa moist. Normal oropharynx. Neck: supple. Trachea midline. Lungs: CTAB. No rhonchi, rales, or wheezes. No respiratory distress. No accessory muscle use. Cardiovascular: Normal S1 & S2. No rubs or gallops. No JVD. Pulse regular. Abdomen: Normal bowel sounds. Nontender. No guarding, no rigidity, no rebound. Extremities: No joint swelling, edema, or clubbing. Nontender. Skin: warm, dry, and intact. - Discharge Instructions Follow Up With: Corry Wang CNP [Primary Care Provider] - 06/11/18 1:00 pm Hong Tate CNP [Advanced Practice Nurse] - (office will call patient at home with follow up appointment) Sylvester Gurrola MD [Partnered Physician] - 06/27/18 1:30 pm - VTE Documentation of Mechanical Device: Graduated compression elastic hosiery
--- NOTE | 2018-06-09 10:14 | Discharge Summary ---
Orders not resulted at time of discharge: Pending orders 06/05/18 03:13 EKG [ECG 12 lead ECG] [ECG] Stat 06/06/18 16:19 UA w. reflex culture [Urinalysis Reflex Cult & Micro] [URIN] Stat Date of Encounter: 06/09/18 Time of Encounter: 10:08 - Discharge Diagnosis (1) CAD (coronary artery disease) Priority: Primary Status: Chronic Qualifiers: Coronary Disease-Associated Artery/Lesion type: [place] artery [place] vs. transplanted heart: [place] heart Associated angina: with unstable angina Qualified Code(s): I25.110 - Atherosclerotic heart disease of [place] coronary artery with unstable angina pectoris - Hospital Course Hospital course: Mr. Velasquez is a 57 year old male The patient is a 57-year-old gentleman with a history of hypercholesterolemia and a strong positive family history for premature coronary artery disease. He presented with chest pain. Cardiac catheterization revealed triple-vessel disease with a 90% left main lesion. On 05/30/2018, I took him to the operating room for coronary artery bypass grafting 3, utilizing the left internal mammary artery. The patient did well. His chest tubes and pacing wires were removed. Chest x-ray revealed atelectasis, which continued to improve. On June 04, we were preparing to discharge him on June 05. However, during the night he developed GI bleeding with melena and orthostatic hypotension. He was transfused packed red blood cells. He was started on a Protonix drip. On June 05, he was seen by the gastroenterology service. They performed upper endoscopy which revealed stress ulcers in the duodenal bulb. They were not actively bleeding. The patient was maintained on a Protonix drip and then switched to by mouth Protonix. His stool became normal again and there was no evidence of further GI bleeding. His hemoglobin remained stable. He otherwise did well and was discharged on June 09. Discharge medications are on the [employer] [facility] and include Percocet for pain. I did check the [facility] Rx reporting system. He was postoperative and was given a one-week supply. Martine ropriate precautions were given. He was also on Protonix 40 mg by mouth twice a day. According to gastroenterology, if he is doing well he can reduce the dosage to once a day after a month. He was to return to his previous and regular diet. He was to avoid heavy lifting for a total of 3 months after surgery, but to walk as much as possible. He was to avoid driving for 1 month. He was to follow-up and see me in the office in 4 weeks as directed. He was to follow-up with his primary care doctor and auto glass technician as directed. He was to call sooner for any difficulties. - Time Spent with Patient Total time spent providing and/or coordinating discharge services: - Discharge Medications Prescriptions: OxyCODONE/APAP 5/325 [Percocet 5/325 MG] 1 each PO Q4HR PRN 7 Days #20 tablet PRN Reason: Severe Pain Pantoprazole [Protonix] 40 mg PO Q12HR #60 vial Aspirin Enteric Coated [Aspirin EC] 81 mg PO DAILY #60 tablet. Metoprolol [Lopressor] 50 mg PO BID #60 tablet Home Medications: Rosuvastatin [Crestor] 20 mg PO HS 05/27/18 [History] Aspirin Enteric Coated [Aspirin EC] 81 mg PO DAILY #60 tablet. 06/09/18 [Rx] Metoprolol [Lopressor] 50 mg PO BID #60 tablet 06/09/18 [Rx] OxyCODONE/APAP 5/325 [Percocet 5/325 MG] 1 each PO Q4HR PRN 7 Days #20 tablet 06/09/18 [Rx] Pantoprazole [Protonix] 40 mg PO Q12HR #60 vial 06/09/18 [Rx] Allergies/Adverse Reactions: Allergy/AdvReac Type Severity Reaction Status Date / Time No Known Allergies Allergy Verified 05/27/18 22:00 Date of admission: 05/30/18 09:10 Primary care physician: Corry Wang CNP Consults: 05/28/18 02:36 Consult to Cardiology [CONS] Routine Comment: Consulting Provider: Cardiology Francesca Reason for Consult: chest pain relieved y NTG; strong FH premature CAD; brother of mI at 53 yo Call Completed: No 05/28/18 14:50 Consult to Cardiothoracic Surgery [CONS] Routine Consulting Provider: Cardiothoracic Surgery Francesca Reason for Consult: CAD, L main disease, eval for CABG Call Completed: Yes 05/30/18 12:05 Consult to Cardiac Rehabilitation-Phase1 [CONS] Routine Comment: Reason for Consult: Post open heart Call Completed: Yes Consult to Pre Sales Architect [CONS] Routine Reason for SW Consult: open heart 05/31/18 09:55 Consult for Pharmacy Education [CONS] Routine Reason for Consult: Post-Op Heart Call Completed: Yes Consult to Occupational Therapy [CONS] Routine Comment: Evaluate, develop and implement POC Reason for Consult: Post-Op Heart Does patient have active BEDREST order?: No Is patient medically & hemodynamically stable?: Yes Consult to Physical Therapy [CONS] Routine Comment: Evaluate, develop and implement POC Reason for Consult: Post open heart Does patient have active BEDREST order?: No Is patient medically & hemodynamically stable?: Yes 06/05/18 03:19 Consult to Gastroenterology [CONS] Routine Consulting Provider: Gastroenterology Francesca Reason for Consult: GI bleed Call Completed: No 06/05/18 15:45 Consult to Hospitalist [CONS] Routine Consulting Provider: Hospitalist Dewayne Reason for Consult: S/P CABG. GI BLEED. Call Completed: No Procedure(s) Performed: 05/30/2018. Coronary artery bypass grafting 3, utilizing the left internal mammary artery. 06/05/2018. Upper endoscopy. Discharging clinician: Sylvester Gurrola Anticipated date of discharge: 06/09/18 Physical Examination Vital Signs, Last 4 Hours Temp Pulse Resp BP Pulse Ox 06/09/18 08:41 79 06/09/18 07:42 18 93 06/09/18 07:32 98.1 F 78 18 121/74 94 - Patient Status Disposition: Home, Self-Care Functional capacity at discharge: independent ambulation Overall status at discharge: patient is progressing back to baseline - Discharge Instructions Instructions: Metoprolol (By mouth), Oxycodone/Acetaminophen (By mouth), Aspirin (By mouth), Pantoprazole (By mouth), Coronary Artery Bypass Graft (DC), Sternal Precautions (GEN) Follow Up With: Corry Wang CNP [Primary Care Provider] - 06/11/18 1:00 pm Hong Tate CNP [Advanced Practice Nurse] - (office will call patient at home with follow up appointment) Sylvester Gurrola MD [Partnered Physician] - 06/27/18 1:30 pm [facility] Aspirin Cont/Prescribed at DC: Yes Beta Mya Cont/Prescribed at DC: Yes Statin Cont/Prescribed at DC: Yes VANESSA/ARB Cont/Prescribed at DC: Not indicated - VTE Documentation of Mechanical Device: Graduated compression elastic hosiery
[2018-06-09] MEDS: traMADol 50 MG TABLET PO PRN (12:19)
--- NOTE | 2018-06-09 12:53 | Internal Med Progress Note ---
<Ashley Soria - Last Filed: 06/09/18 12:51> Hospitalist Progress Note - Encounter Date of Encounter: 06/09/18 Time of Encounter: 08:50 - Subjective Interval History: Patient seen and examined. No acute events overnight. Patient is sitting comfortably in chair watching TV with family at his side. Patient states he feels fine. Denies any complaints at this time. States he made several bowel movements yesterday, all normal. Denies chest pain. Denies shortness of breath. Denies abdominal pain, nausea/vomiting. - Exam Vitals: Temp Pulse Resp BP Pulse Ox 98.1 F 79 18 121/74 93 06/09/18 07:32 06/09/18 08:41 06/09/18 07:42 06/09/18 07:32 06/09/18 07:42 Exam: General: Obese. Alert and oriented x3. No acute distress. Head: atraumatic, normocephalic. Eye: pupils equal and round. Sclera anicteric. EOMI. Mouth: oral mucosa moist. Normal oropharynx. Neck: supple. Trachea midline. Lungs: CTAB. No rhonchi, rales, or wheezes. No respiratory distress. No accessory muscle use. Cardiovascular: Normal S1 & S2. No rubs or gallops. No JVD. Pulse regular. Abdomen: Normal bowel sounds. Nontender. No guarding, no rigidity, no rebound. Extremities: No joint swelling, edema, or clubbing. Nontender. Skin: warm, dry, and intact. - Assessment and Plan (1) Triple vessel coronary artery disease Status: Acute Assessment and Plan: LHC on 05/28 revealed triple vessel CAD with left main disease. CABG on 05/30. Continue ASA. Contine Crestor 40mg qd Continue Metoprolol 25mg BID Management of post-op care per CT surgery (2) Duodenal ulcer Status: Acute Assessment and Plan: Pt had episodes of hematochezia and melena on 06/05 Underwent EGD which revealed multiple cratered and superficial duodenal ulcers with adherent clots. Spoke with GI. Transitioned from Protonix drip to 40mg IV BID. Will need 2 weeks of BID PPI, followed by 1 week daily PPI on discharge. Continue Carafate QID. No GI specific f/u needed unless symptoms reoccur. (3) Anemia Status: Acute Assessment and Plan: Hgb dropped from 10.9 to 8.2 on 06/05 Transfused 4u pRBCs starting 06/05 at 06:00 Secondary to multiple duodenal ulcers No obvious bleeding at this time. No hematemesis, no melena, no hematochezia. Hb stable now. Continue to monitor H&H. Transfuse if Hb <8. (4) CAD (coronary artery disease) Status: Chronic Assessment and Plan: Plan as above for CABG Continue Crestor 40mg qd in light of strong family hx of CAD with premature and significant hyperlipidemia as seen on 05/28 labs (5) Leukocytosis Status: Acute Assessment and Plan: Leukocytosis post op with peak at 23.3 peak on 06/05 (day of GI bleed) Lactate max of 2.8 morning of 06/05 but decreased to 1.8 that same day UA negative CXR 06/06 with bandlike opacities right base thought to be atelectasis similar to prior cxr WBC downtrending. Currently afebrile, but if fever develops can obtain blood cultures No abx at this time. Continue to monitor. DVT Prophylaxis: Holding at this time with recent GI bleed from duodenal ulcers - Time Spent with Patient Total time spent is greater than 50% in coordination of care (as documented) at patient's floor/unit and/or counseling patient: Internal Medicine: Result - Labs CBC & Chem 7: 06/09/18 06:42 06/09/18 06:42 Labs: Short CBC 06/09/18 Range/Units 06:42 WBC 13.8 H (4.3-11.1) K/mcL Hgb 8.2 L (12.9-16.9) g/dL Hct 25.4 L (37.5-50.1) % Plt Count 315 (140-400) K/mcL Neutrophils # 9.4 H (1.6-8.9) K/mcL BMP 06/09/18 06:42 Sodium 135 L Potassium 3.9 Chloride 103 Carbon Dioxide 26 BUN 17 Creatinine 0.73 Glucose 113 H Calcium 8.3 L - ABG Interpretation ABG results: ABG ABG pH 7.34 pH Units (7.32-7.45) 05/30/18 20:09 ABG pCO2 50 mmHg (35-45) H 05/30/18 20:09 ABG pO2 95 mmHg (85-104) 05/30/18 20:09 ABG O2 Saturation 97 % (95-98) 05/30/18 20:09 PT/INR, D-dimer PT 18.1 Seconds (9.4-12.1) H 06/05/18 03:38 - VTE Documentation of Mechanical Device: Graduated compression elastic hosiery Consult Discharge Plan - Plan Instructions: Metoprolol (By mouth), Oxycodone/Acetaminophen (By mouth), Aspirin (By mouth), Pantoprazole (By mouth), Coronary Artery Bypass Graft (DC), Sternal Precautions (GEN) Additional Instructions: If you have questions that are not answered by these instructions, please call your nurse or doctor. * Do not drive for 1 month or until allowed by your surgeon. * If you smoke, STOP SMOKING. Smoking or tobacco use significantly increases your risk of heart disease because nicotine causes the arteries to narrow or constrict. It also causes fats to stick to the artery. Your chances of occluding your new bypasses or having a heart attack are greatly increased if you continue to smoke. For more information call the patient education line for smoking cessation 2-578-DTEY-NOW. * Continue to use your incentive Spirometry about 6 times each day (1 use = 5 to 10 breaths) for 1 month. This important to help prevent pneumonia. * Follow your Phase I Cardiac Rehab Activity Guide. * You may climb stairs, one step at a time, as you are able. * Do not lift more than 10 pounds (1/2 gallon of milk = 5 pounds), vacuum, sweep, shovel snow, rake leaves, or do anything that could pull on the chest for 2 months. * You may resume sexual activity when you feel ready. * Continue to wear CARTER hose during the day for about 1 month. Remove and wash daily in mild detergent. * Gently wash incision with soap and water daily. Rinse well and pat dry with a clean towel. Do not soak your incisions under water. Do not use any powders, lotions, creams or ointments on your incision. * Chest tube sites may drain fluid for 1-2 weeks and can be covered with dry gauze. They also may become reddened or inflamed as they heal and can be cleaned twice a day with hydrogen peroxide. * Take your pulse once a day. If it is less than 60 or greater than 110 beats per minute at rest, call your Delineator, . * Take your temperature by mouth once a day for 2 weeks. Call your surgeon of it is above 101 degrees. * Call the surgeon if you notice drainage or redness at your incision lines. * Weigh yourself each day for 2 weeks. Call your doctor if you notice and increase in your weight of 3 pounds or more in a day or increasing shortness of breath. * If you experience chest pain, shortness of breath, dizziness or extreme tiredness, stop and rest. Please notify your doctor if you experience any of these symptoms. * If you experience any of these symptoms and they are not relieved with rest, please call 911. Referrals: Corry Wang BRICK TENDER [Primary Care Provider] - 06/11/18 1:00 pm Hong Tate CNP [Advanced Practice Nurse] - (office will call patient at home with follow up appointment) Sylvester Gurrola MD [Partnered Physician] - 06/27/18 1:30 pm Prescriptions: OxyCODONE/APAP 5/325 [Percocet 5/325 MG] 1 each PO Q4HR PRN 7 Days #20 tablet PRN Reason: Severe Pain Pantoprazole [Protonix] 40 mg PO Q12HR #60 vial Aspirin Enteric Coated [Aspirin EC] 81 mg PO DAILY #60 tablet. Metoprolol [Lopressor] 50 mg PO BID #60 tablet <Ayesha Martinez - Last Filed: 06/09/18 13:36> Hospitalist Progress Note - Exam Vitals: Temp Pulse Resp BP Pulse Ox 98.1 F 79 18 121/74 93 06/09/18 07:32 06/09/18 08:41 06/09/18 07:42 06/09/18 07:32 06/09/18 07:42 - Assessment and Plan (1) CAD (coronary artery disease) Status: Chronic (2) Triple vessel coronary artery disease Status: Acute (3) Anemia Status: Acute (4) Duodenal ulcer Status: Acute (5) Leukocytosis Status: Acute - Time Spent with Patient Total time spent is greater than 50% in coordination of care (as documented) at patient's floor/unit and/or counseling patient: Internal Medicine: Result - Labs CBC & Chem 7: 06/09/18 06:42 06/09/18 06:42 Labs: Short CBC 06/09/18 Range/Units 06:42 WBC 13.8 H (4.3-11.1) K/mcL Hgb 8.2 L (12.9-16.9) g/dL Hct 25.4 L (37.5-50.1) % Plt Count 315 (140-400) K/mcL Neutrophils # 9.4 H (1.6-8.9) K/mcL BMP 06/09/18 06:42 Sodium 135 L Potassium 3.9 Chloride 103 Carbon Dioxide 26 BUN 17 Creatinine 0.73 Glucose 113 H Calcium 8.3 L - ABG Interpretation ABG results: ABG ABG pH 7.34 pH Units (7.32-7.45) 05/30/18 20:09 ABG pCO2 50 mmHg (35-45) H 05/30/18 20:09 ABG pO2 95 mmHg (85-104) 05/30/18 20:09 ABG O2 Saturation 97 % (95-98) 05/30/18 20:09 PT/INR, D-dimer PT 18.1 Seconds (9.4-12.1) H 06/05/18 03:38 - Attending Attestation I examined this patient and my medical decision-making was reviewed with the Resident Physician Dr Soria. I agree with the documented findings, disposition and treatment plan as described except to the extent set forth below. Mr Velasquez was admitted 05/28/18 with chest pain, had LHC that showed severe 3V disease and had CABG preformed 05/30/18. He has pmhx of hld and family hx of CAD with premature . On 06/05/18 he he developed emesis, right sided abd pain, lethargy and had melanotic stool with surrounding bright red blood. gi eval revealed duodenal ulcers. He is on PPI and carafate. awake, family at bedside. No sob, chest pain or pressure. no abd pain, nausea or emesis.moving bowels and dark brown stool. gen- alert, awake,appears stated age eyes- pupils equal round , no conjunctival pallor cv- reg rate and rhythm, normal s1,s2, no murmurs appreciated, no pitting le edema lungs- ctabl, no wheezing, rhonchi or crackles, normal resp effort on ra abd- soft, non tender, no guarding, non distended, + bs skin- warm, dry, no pallor neuro- AAOx3 Severe 3V CAD s/p CABG 05/30/18 -CT surg followed throughout and ready for dc to home today -cont statin, metoprolol, amio -asa held for gi bleed- resumed 06/08 -post op care and follow up as per Dr Gurrola Acute GIB with hematochezia and melena, resolved -gi followed -ct a/p mod distension stomach and duodenum without transition point, possible post op ileus, no free air or high grade obstruction -egd 06/05/18 many non bleeding duodenal ulcers with adherant clot largest 3cm, ulcers both cratered and superficial, no active bleeding -now on PPI bid dosing + carafate, gi aware will dc on asa and recs given for ppi and follow up as outpt Acute Anemia 2/2 blood loss from GIB, stable Hgb 16 on admit, drop to 12.6 on 05/30 then to 8.2 on 06/05 remains stable -received 4 units prbc 06/05 Leukocytosis post op with wbc 14.7-23.3 peak on 06/05 down trended, afebrile, may be reactive to surgery and complicated by GI bleed Lactate wnl, afebrile -CXR 06/06 with bandlike opacities right base thought to be atelectasis similar to prior cxr -ua neg -did not require abx dispo will be to home with family and no home needs as per CT surg <Ashley Soria - Last Filed: 06/09/18 12:51> (3) Anemia Qualifiers: Anemia type: iron deficiency Iron deficiency anemia type: other iron deficie ncy Qualified Code(s): D50.8 - Other iron deficiency anemias (4) CAD (coronary artery disease) Qualifiers: Coronary Disease-Associated Artery/Lesion type: [place] artery [place] vs. transplanted heart: [place] heart Associated angina: with unstable angina Qualified Code(s): I25.110 - Atherosclerotic heart disease of [place] coronary artery with unstable angina pectoris <Ayesha Martinez - Last Filed: 06/09/18 13:36> (1) CAD (coronary artery disease) Qualifiers: Coronary Disease-Associated Artery/Lesion type: [place] artery [place] vs. transplanted heart: [place] heart Associated angina: with unstable angina Qualified Code(s): I25.110 - Atherosclerotic heart disease of [place] coronary artery with unstable angina pectoris (3) Anemia Qualifiers: Anemia type: iron deficiency Iron deficiency anemia type: other iron deficiency Qualified Code(s): D50.8 - Other iron deficiency anemias
== END 2018-06-09 12:30 | disposition home or self-care (01) | DRG 233 ==
LOC: 3BNU 20:31 → EMEROOARM 20:31 → SUATTDRO 22:17 → 3BNU 23:20 → ICNU 05-30 08:55 → SUATTDRO 05-30 09:10 → 2NNU 06-02 11:16
PROVIDERS: ADMIT Family Medicine; ATTEND Internal Medicine

== ENCOUNTER 2018-06-17 13:38 | Observation (INO) ==
[2018-06-17] MEDS ORDERED: 0.9 % Sodium Chloride 1,000 ML IVC ONE (14:02)
--- NOTE | 2018-06-17 14:07 | Emergency Department Note ---
Disposition Clinical Impression: History of GI bleed, Weakness Anemia Qualifiers: Anemia type: unspecified type Qualified Code(s): D64.9 - Anemia, unspecified Disposition: Admitted As Inpatient Condition: Fair Weakness HPI - General Chief complaint: ED Weakness Stated complaint: open heart on 05/30 not feeling well Time Seen by Provider: 06/17/18 13:55 Source: patient Mode of arrival: ambulatory Limitations: no limitations Nursing Notes Reviewed: Yes Vital Signs Reviewed: Yes - History of Present Illness HPI Narrative: 57-year-old male status post from CABG on May 30 presents for evaluation of generalized weakness. Patient history provided via family. Patient was seen his primary care doctor earlier today and was sent to the ER for evaluation. Patient describes generalized weakness and is worse primarily in the mornings. Denies any chest pain or short of breath. Patient did have a, located hospital course regarding his cardiac bypass. Patient did require transfusion with 5 units of PRBCs following to gastric ulcers which have since resolved. Patient denies any blood in his stool or dark tarry stools. States that he has taken his medications as directed which include metoprolol 50 mg twice a day. Patient denies any fevers. Denies any abdominal pain or nausea vomiting. Reports that his only blood thinning medication is aspirin. Pain Scale: 0 - Related Data Home Medications Medication Instructions Recorded Confirmed Rosuvastatin [Crestor] 20 mg PO HS 05/27/18 06/17/18 Docusate [Colace] 100 mg PO DAILY PRN 06/17/18 06/17/18 OxyCODONE/APAP 5/325 [Percocet 1 each PO DAILY PRN 06/17/18 06/17/18 5/325 MG] Pantoprazole [Protonix] 40 mg PO BID 06/17/18 06/17/18 Previous Rx's Medication Instructions Recorded Aspirin Enteric Coated [Aspirin EC] 81 mg PO DAILY #60 tablet. 06/09/18 Metoprolol [Lopressor] 50 mg PO BID #60 tablet 06/09/18 Allergies Allergy/AdvReac Type Severity Reaction Status Date / Time No Known Allergies Allergy Verified 06/17/18 16:49 All systems ED: reviewed and negative except as stated. Constitutional: Denies: fever Cardiovascular: Denies: chest pain Respiratory: Denies: cough, dyspnea Gastrointestinal: Denies: abdominal pain, nausea, vomiting Past Medical History - Past Medical History Source: patient Medical history: Reports: coronary artery disease, hyperlipidemia Surgical history: Reports: appendectomy Psychiatric history: Reports: no psych history - Social History Smoking Status: Current every day smoker Smokeless Tobacco Status: Yes Alcohol use: Reports: occasionally Drug use: Reports: none Physical Exam - General Limitations: no limitations General appearance: alert, in no apparent distress - Head Head exam: atraumatic, normocephalic, normal inspection - Eye Eye exam: Present: normal appearance, PERRL, EOMI - ENT ENT exam: normal exam, normal oropharynx, mucous membranes moist - Neck Neck exam: Present: normal inspection - Chest Chest inspection: Present: normal inspection, symmetric chest wall rise, other (Healing midline incision) - Respiratory Respiratory exam: Present: normal lung sounds bilaterally. Absent: respiratory distress - Cardiovascular Cardiovascular exam: Present: regular rate, normal rhythm. Absent: systolic murmur - Abdominal Exam Abdominal exam: Present: soft, Non-Tender - Extremities Exam Extremities exam: Present: normal inspection. Absent: pedal edema - Expanded Lower Extremity Exam Neurovascular/Tendon exam: Present: normal capillary refill - Neurological Exam Neurological exam: Present: alert, oriented X3, CN II-XII intact - Skin Skin exam: Present: warm, dry, intact, normal color Course Course Narrative: Patient seen and examined. Patient to basic cardiac pulmonary screening evalu ation with EKG, chest x-ray and labs. She will also be given IV fluids. Disposition pending. - Reevaluation(s) Reevaluation #1: Patient seen resting comfortably. Given the patient's history with no GI bleed given gastric ulcers patient does have mild drop in his hemoglobin. Patient be admitted for serial hemoglobins and evaluation. Time: 16:28 Vital Signs Temperature 97.5 F L 06/17/18 13:39 Pulse Rate 74 06/17/18 13:39 Respiratory Rate 14 06/17/18 13:39 Blood Pressure 118/82 06/17/18 13:39 O2 Sat by Pulse Oximetry 99 06/17/18 13:39 Temperature 97.5 F L 06/17/18 13:39 Pulse Rate 74 06/17/18 13:39 Respiratory Rate 14 06/17/18 13:39 Blood Pressure 118/82 06/17/18 13:39 O2 Sat by Pulse Oximetry 99 06/17/18 13:39 Oxygen Delivery Oxygen Delivery Room Air Weakness - MDM Narrative Medical decision making narrative: Patient presented for concerns of generalized weakness. Patient did have a recent hospital course which included GI bleed from ulcer disease requiring transfusion. She also had a recent CABG. Patient's hemoglobin is slightly lower than what has been the past. Patient denies any bright red blood. Concerns for possible occult bleeding. Patient will be admitted for observation and serial troponins. At this point the patient is hemodynamically stable and does not require any transfusion or product. Patient is only on aspirin. Patient does have known gastric ulcers causing his symptoms in the recent past. - Lab Data Lab results reviewed: Yes I reviewed the patient's lab results. Result diagrams: 06/17/18 14:19 06/17/18 14:19 Lab Results 06/17/18 06/17/18 06/17/18 Range/Units 14:19 14:19 14:40 WBC 11.1 (4.3-11.1) K/mcL RBC 2.59 L (4.19-5.50) M/mcL Hgb 7.5 L (12.9-16.9) g/dL Hct 24.3 L (37.5-50.1) % MCV 93.8 (83.0-100.0) fL MCH 29.0 (28.0-33.3) pg MCHC 30.9 L (31.6-35.5) g/dL RDW 14.6 H (11.5-14.5) % Plt Count 514 H (140-400) K/mcL MPV 9.0 L (9.4-12.4) fL Immature Gran % 0.5 (0-4) % Seg Neutrophils % 69.2 % Lymphocytes % 17.3 % Monocytes % 9.1 % Eosinophils % 3.2 % Basophils % 0.7 % Neutrophils # 7.7 (1.6-8.9) K/mcL Lymphocytes # 1.9 (0.6-4.6) K/mcL Monocytes # 1.0 (0.0-1.3) K/mcL Eosinophils # 0.4 (0.0-0.6) K/mcL Basophils # 0.1 (0.0-0.2) K/mcL Sodium 137 (136-145) mEq/L Potassium 4.2 (3.5-5.1) mEq/L Chloride 104 (98-107) mEq/L Carbon Dioxide 25 (23-29) mEq/L BUN 18 (6-20) mg/dL Creatinine 0.74 (0.70-1.30) mg/dL Est GFR ( Amer) > 60 (> 60) Est GFR (Non-Af Amer) > 60 (> 60) BUN/Creatinine Ratio 24 (6-26) Glucose 98 (70-105) mg/dL Calculated Osmolality 286 (280-300) Calcium 9.0 (8.6-10.3) mg/dL Total Bilirubin 0.3 (0.3-1.0) mg/dL AST 14 (13-39) Units/L ALT 51 (7-52) Units/L Alkaline Phosphatase 124 H (34-104) Units/L Troponin I < 0.03 (< 0.04) ng/mL Serum Total Protein 6.0 L (6.4-8.9) g/dL Albumin 3.4 L (3.5-5.7) g/dL Globulin 2.6 (2.4-3.5) g/dL Albumin/Globulin Ratio 1.3 (1.1-2.2) Urine Color Yellow (Yellow) Urine Clarity Clear (Clear) Urine pH 6.5 (5.0-8.0) pH Units Ur Specific [place] 1.014 (1.010-1.025) Urine Protein Negative (Neg-Trace) mg/dL Urine Glucose (UA) Normal (Normal) mg/dL Urine Ketones Negative (Negative) mg/dL Urine Blood Negative (Negative) Urine Nitrite Negative (Negative) Urine Bilirubin Negative (Negative) Urine Urobilinogen Normal (Normal) mg/dL Ur Leukocyte Esterase Negative (Negative) Ur Culture Indicated? NO (NO) - Radiology Data Radiology results reviewed: Yes I reviewed the patient's radiology results. Chest X-Ray 06/17/18 14:02 IMPRESSION: 1. Small left pleural effusion suspected. Left basilar atelectasis versus infiltrate. 2. Cardiomegaly and pulmonary vascular congestion. D/ / Amanda Fall MD / Amanda Fall MD Interpreting Provider: Amanda Fall MD - EKG Data EKG attestation: Yes I reviewed and interpreted this EKG. EKG shows normal: sinus rhythm Rate: normal Rhythm: NSR [place]/QRS: normal Q waves: v1 T wave inversions noted in: v1, v2 When compared to previous EKG there are: no significant changes Interpretation: no acute changes, unchanged when compared to prior tracing (date), nonspecific ST-T wave changes Ton - Ton Situation: Demographics Background: Presenting Complaint Assessment: Vital Signs, Course and respsone to treatment, Patient/Family Expectation Recommendation: Barrier(s) to disposition, Recommendation based on pending studies, treatments, or consults Ton Report Given to: Dr. Veena Camilo Repor Time: 16:36 Attestation Statement - Attestation Attestation: I examined this patient and my medical decision-making was reviewed with the Resident Physician. I agree with the documented findings, disposition and treatment plan as described except to the extent set forth below. Findings consistent with recent surgery, gastrointestinal hemorrhage, need for recent transfusions. Now with lethargy and concern for anemia. Was subsequent found to be anemic but not requiring a transfusion at this time. No active hemorrhage. We will admit for serial hemoglobin and hematocrits as well as GI consultation if needed as inpatient.
[2018-06-17 14:37] LABS: Basophils # 0.1 K/mcL (0.0-0.2); Basophils % 0.7 %; Eosinophils # 0.4 K/mcL (0.0-0.6); Eosinophils % 3.2 %; Hematocrit 24.3 % (37.5-50.1); Hemoglobin 7.5 g/dL (12.9-16.9); Immature Granulocytes % 0.5 % (0-4); Lymphocytes # 1.9 K/mcL (0.6-4.6); Lymphocytes % 17.3 %; Mean Corpuscular HGB Conc 30.9 g/dL (31.6-35.5); Mean Corpuscular Volume 93.8 fL (83.0-100.0); Monocytes % 9.1 %; Neutrophils # 7.7 K/mcL (1.6-8.9); Platelet Count 514 K/mcL (140-400); Red Blood Count 2.59 M/mcL (4.19-5.50); Red Cell Distribution Width 14.6 % (11.5-14.5); Segmented Neutrophils % 69.2 %
[2018-06-17 14:51] LABS: Bilirubin,Urine Negative (Negative); Blood,Urine Negative (Negative); Clarity,Urine Clear (Clear); Color,Urine Yellow (Yellow); Glucose,Urine (UA) Normal (Normal); Ketones,Urine Negative (Negative); Leukocyte Esterase,Urine Negative (Negative); Nitrite,Urine Negative (Negative); PH,Urine 6.5 pH Units (5.0-8.0); Protein,Urine Negative (Neg-Trace); Specific Gravity,Urine 1.014 (1.010-1.025); Urobilinogen,Urine Normal (Normal)
[2018-06-17 14:59] LABS: Troponin I < 0.03 ng/mL (< 0.04)
[2018-06-17 15:04] LABS: Alanine Aminotransferase 51 Units/L (7-52); Albumin 3.4 g/dL (3.5-5.7); Albumin/Globulin Ratio 1.3 (1.1-2.2); Alkaline Phosphatase 124 Units/L (34-104); Aspartate Amino Transferase 14 Units/L (13-39); BUN/Creatinine Ratio 24 (6-26); Bilirubin,Total 0.3 mg/dL (0.3-1.0); Blood Urea Nitrogen 18 mg/dL (6-20); Carbon Dioxide 25 mEq/L (23-29); Chloride 104 mEq/L (98-107); Globulin 2.6 g/dL (2.4-3.5); Glucose 98 mg/dL (70-105); Osmolality,Calculated 286 (280-300); Potassium 4.2 mEq/L (3.5-5.1); Sodium 137 mEq/L (136-145); eGFR For Non-African Americans > 60 (> 60)
[2018-06-17] MEDS ORDERED: Pantoprazole 40 MG VIAL IVP ONE (16:28)
[2018-06-17] MEDS ORDERED: Naloxone 0.4 MG/ML INJ IVP PRN (18:12)
[2018-06-17] MEDS: *HR* OxyCODONE ER (12 HR) 10 MG TABLET PO SCH (22:28)
--- NOTE | 2018-06-17 22:40 | Internal Med History&Physical ---
Date of Encounter: 06/17/18 Time of Encounter: 18:00 Internal Medicine - H&P: HPI Chief complaint: Weakness Admitted From: Home Plans for Post Hospital Care: Home History of present illness: The patient is a 57-year-old male. He came to emergency room complaining of weakness/dyspnea on exertion. It started after discharging him from our hospital after his CABG surgery 8 days ago. The surgery happened on May 30. After the surgery he developed a GI bleeding; upper endoscopy showed 2 bleeding gastric ulcers. The patient was transfused with a total of 5 units of packed red blood cells. His hemoglobin before the surgery (May 29) was 16.7. It dropped to 8.0 on 06/05/18. It was 8.2 on the day of discharge, 06/09/18. His today's hemoglobin is 7.5; with WBC of 11.1 thousand and platelet count of 514,000. The patient has been suffering from low back pain for several years; got worse after the surgery. He has been using only a recliner for sleeping since discharging him home. It helps him some. The pain in his lower back and pain in the area of surgical wound making getting only a limited amount of sleeping. He feels weak. 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 It is usually associated with low blood pressure. The patient was put on metoprolol at 50 mg by mouth twice a day - recently. Other than a constant pain in the area of surgical wound he has not experienced any other type of chest pain recently. He does not have resting dyspnea. He does have dyspnea on exertion, when walking. PAST MEDICAL HX: The patient has coronary artery disease; had CABG surgery on 05/30/18. He has recently developed a gastric ulcers, likely due to stress related to his CABG surgery. He suffers from low back pain. PSOCHX: The patient used to smoke cigarettes heavily; quit doing that after the surgery mentioned above. He drinks alcohol very occasionally. He does not use illicit drugs. REVIEW OF SYSTEMS: All 14 organ systems were reviewed by me with the patient. Positive and pertinent negative findings are listed above. The rest of organ systems is negative. PHYSICAL EXAM: Skin: Free of rash and discoloration. There surgical wound located in the midline of his sternum is healing well. Eyes: Sclera is white. There is no discharge from eyes. ENMT: Oral/pharyngeal mucosa is normal in appearance. There is no discharge from nose or ears. Respiratory: Normal breath sounds with no crackles and wheezes bilaterally. CV: Heart is regular with no gallop or murmur. GI: Abdomen is flat and soft with no palpable mass or visceromegaly. : There is no tenderness in patient's flanks bilaterally. Neuro exam: He has good strength in upper and lower extremities. He has normal eye movements. Psychiatric: He has normal affect. His thought process is appropriate to the situation. ADDITIONAL DATA: His chest x-ray shows left basilar airspace lung disease, likely combination of infiltrate/atelectasis/effusion. CBC shows hemoglobin of 7.5 with a WBC of 11.1 thousand and platelet count of 514,000. His BMP and hepatic panel are normal. His UA is normal. A/P: Generalized weakness. Likely secondary to excessive for him dose of Lopressor. Associated with some hypotension. I will decrease his Lopressor to 25 mg by mouth twice a day. He is to take 50 mg by mouth twice a day. His weakness is also due to significant anemia and iron deficiency. We will repeat he is CBC tomorrow morning. We will transfuse him, if needed. I will start him on ferrous gluconate tablets. Coronary artery disease. This 1 seems to be stable. We will keep him on decreased dose of Lopressor, enteric coated aspirin and Crestor. Chronic low back pain with exacerbation. The patient does not get any quality sleep. We will start low-dose extended release oxycodone. Additionally he will be using, when necessary Percocet. He will be taking 25 mg of Phenergan at bedtime, as he suffers from insomnia recently. Recent history of GI bleeding due to gastric ulcers. We will keep him on Protonix at 40 mg by mouth twice a day. We will consult the GI diseases, if his hemoglobin is dropping. Past Med Surg Social Fam HX - Past Medical History Medical history: coronary artery disease, hyperlipidemia Psychiatric history: no psych history - Past Surgical History Surgical History: appendectomy, coronary bypass (CABG) Additional surgical history: appendectomy 1975, LHC in 2003 w/ no stents - Social History Smoking Status: Former smoker Smokeless Tobacco Status: No Alcohol use: occasionally Drug use: none - Family History Mother Living Status: Hx Family Cardiac Disorders: Yes Brother Living Status: Hx Family Cardiac Disorders: Yes ([place]) Internal Medicine - H&P: Meds Rosuvastatin [Crestor] 20 mg PO HS 05/27/18 [History] Aspirin Enteric Coated [Aspirin EC] 81 mg PO DAILY #60 tablet. 06/09/18 [Rx] Metoprolol [Lopressor] 50 mg PO BID #60 tablet 06/09/18 [Rx] Docusate [Colace] 100 mg PO DAILY PRN 06/17/18 [History] OxyCODONE/APAP 5/325 [Percocet 5/325 MG] 1 each PO DAILY PRN 06/17/18 [History] Pantoprazole [Protonix] 40 mg PO BID 06/17/18 [History] Allergy/AdvReac Type Severity Reaction Status Date / Time No Known Allergies Allergy Verified 06/17/18 16:49 - Constitutional Vitals: Temp Pulse Resp BP Pulse Ox 98.0 F 83 16 107/73 98 06/17/18 22:17 06/17/18 22:17 06/17/18 22:17 06/17/18 22:17 06/17/18 22:18 General appearance: Present: A&O X 3, no acute distress, answers questions appropriately Exam: xx Internal Med - H&P Results - Labs CBC & Chem 7: 06/17/18 14:19 06/17/18 14:19 Labs: Short CBC 06/17/18 Range/Units 14:19 WBC 11.1 (4.3-11.1) K/mcL Hgb 7.5 L (12.9-16.9) g/dL Hct 24.3 L (37.5-50.1) % Plt Count 514 H (140-400) K/mcL Neutrophils # 7.7 (1.6-8.9) K/mcL BMP 06/17/18 14:19 Sodium 137 Potassium 4.2 Chloride 104 Carbon Dioxide 25 BUN 18 Creatinine 0.74 Glucose 98 Calcium 9.0 Cardiac Enzymes 06/17/18 Range/Units 14:19 Troponin I < 0.03 (< 0.04) ng/mL Liver Function 06/17/18 Range/Units 14:19 Total Bilirubin 0.3 (0.3-1.0) mg/dL AST 14 (13-39) Units/L ALT 51 (7-52) Units/L Alkaline Phosphatase 124 H (34-104) Units/L Albumin 3.4 L (3.5-5.7) g/dL Urine 06/17/18 Range/Units 14:40 Urine Color Yellow (Yellow) Urine Clarity Clear (Clear) Urine pH 6.5 (5.0-8.0) pH Units Ur Specific [place] 1.014 (1.010-1.025) Urine Protein Negative (Neg-Trace) mg/dL Urine Glucose (UA) Normal (Normal) mg/dL - Impressions ITS Impressions Chest X-Ray 06/17/18 14:02 IMPRESSION: 1. Small left pleural effusion suspected. Left basilar atelectasis versus infiltrate. 2. Cardiomegaly and pulmonary vascular congestion. D/ / Amanda Fall MD / Amanda Fall MD Interpreting Provider: Amanda Fall MD - Assessment and plan (1) Weakness Current Visit: Yes Status: Acute (2) Anemia Current Visit: Yes Status: Acute Qualifiers: Anemia type: other cause Other causes of anemia: acute posthemorrhagic Qualified Code(s): D62 - Acute posthemorrhagic anemia (3) CAD (coronary artery disease) Current Visit: No Status: Chronic Qualifiers: Coronary Disease-Associated Artery/Lesion type: [place] artery [place] vs. transplanted heart: [place] heart Associated angina: without angina Qualified Code(s): I25.10 - Atherosclerotic heart disease of [place] coronary artery without angina pectoris (4) Low back pain Current Visit: Yes Status: Acute Qualifiers: Chronicity: chronic Back pain laterality: midline Sciatica presence: without sciatica Qualified Code(s): M54.5 - Low back pain; G89.29 - Other chronic pain (5) Personal history of gastric ulcer Current Visit: Yes Status: Chronic - Time Spent With Patient Total time spent is greater than 50% in coordination of care (as documented) at patient's floor/unit and/or counseling patient: 25 - 35 minutes - VTE Reasons for not Prescribing Prophylaxis: Treatment not Indicated - Low risk for VTE Deep Vein Thrombosis/Pulmonary Embolism Present on Admission: No
[2018-06-18] MEDS: *HR* OxyCODONE/APAP 5/325 TABLET PO PRN ×2 (00:21→23:42)
[2018-06-18 05:45] LABS: Basophils # 0.1 K/mcL (0.0-0.2); Basophils % 0.7 %; Eosinophils # 0.4 K/mcL (0.0-0.6); Eosinophils % 4.1 %; Hematocrit 24.3 % (37.5-50.1); Hemoglobin 7.3 g/dL (12.9-16.9); Immature Granulocytes % 0.4 % (0-4); Lymphocytes # 2.3 K/mcL (0.6-4.6); Lymphocytes % 23.9 %; Mean Corpuscular Hemoglobin 28.4 pg (28.0-33.3); Mean Corpuscular Volume 94.6 fL (83.0-100.0); Monocytes % 10.7 %; Neutrophils # 5.7 K/mcL (1.6-8.9); Platelet Count 524 K/mcL (140-400); Red Blood Count 2.57 M/mcL (4.19-5.50); Red Cell Distribution Width 14.5 % (11.5-14.5); Segmented Neutrophils % 60.2 %
[2018-06-18 05:56] LABS: BUN/Creatinine Ratio 23 (6-26); Blood Urea Nitrogen 18 mg/dL (6-20); Calcium 8.6 mg/dL (8.6-10.3); Carbon Dioxide 25 mEq/L (23-29); Chloride 106 mEq/L (98-107); Glucose 98 mg/dL (70-105); Magnesium 2.1 mg/dL (1.6-2.6); Osmolality,Calculated 294 (280-300); Potassium 4.1 mEq/L (3.5-5.1); Sodium 141 mEq/L (136-145); eGFR For Non-African Americans > 60 (> 60)
[2018-06-18] MEDS: Aspirin Enteric Coated 81 MG Tablet PO SCH (09:21)
[2018-06-18] MEDS: *HR* OxyCODONE ER (12 HR) 10 MG TABLET PO SCH (09:21)
[2018-06-18] MEDS: Pantoprazole 40 MG VIAL IVP SCH ×2 (11:07→21:55)
--- NOTE | 2018-06-18 12:54 | Internal Med Progress Note ---
Hospitalist Progress Note - Encounter Date of Encounter: 06/18/18 Time of Encounter: 13:55 - Subjective Interval History: Patient seen and evaluated at bedside. He reports that since was discharged from the hospital he has been feeling very weak. His reports that the patient looks more pale. Patient denies chest pain, nausea, vomiting, abdominal pain, but reports back pain. He denies seeing blood in his stool or urine and also denies lightheadedness or dizziness with ambulation, but reports generalized weakness. - Exam Vitals: Temp Pulse Resp BP Pulse Ox 97.6 F 72 16 112/74 96 06/18/18 12:47 06/18/18 12:47 06/18/18 12:47 06/18/18 12:47 06/18/18 12:47 Exam: Vitals: Reviewed General: Obese. In mild distress due to generalized weakness. Skin: Warm and supple. Healing midsternal postop scar HEENT: Moist mucous membranes. conjunctivae pallor. Neck: No lymphadenopathy. No JVD. No carotid bruits. No palpable thyroid. Chest: Clear to auscultation bilaterally, no wheezing rales or rhonchi. Heart: Normal S1 & S2; rhythmic. No rubs or murmurs. Abdomen: Obese, Non-distended, soft and non-tender to palpation. Extremities: No edema. No calf tenderness. Normal distal pulses. Neurological: Awake, alert and oriented to person, place and time. No focal deficits. Psych: Affect appropriate. - Assessment and Plan (1) Anemia Current Visit: Yes Status: Acute Assessment and Plan: Possible this a contributing factor to patient generalized weakness. Patient recent Hx of GI bleed due to gastric ulcers. No signs of active bleeding. Plan: Serial CBC will transfuse 1 PRBC CBC 1 hour post transfusion will resume PPI 40mg/Iv BID CT abd w/ contrast. FOBT Will consider GI consult if H&H continues to drop post transfusion. (2) CAD (coronary artery disease) Current Visit: No Status: Chronic Assessment and Plan: Recent CABG. continue aspirin 81 mg by mouth daily and statin. on metoprolol 25mg/PO BID. (3) Weakness Current Visit: Yes Status: Acute Assessment and Plan: Multifactorial. recent prolong hospitalization vs anemia. Plan PT/OT PRBCs transfusion. (4) Duodenal ulcer Current Visit: No Status: Acute Assessment and Plan: Patient on PPI 40 mg IV twice a day. DVT Prophylaxis: No chemical DVT prophylaxis due to recent GI bleed. Mechanical DVT prophylaxis with intermittent pneumatic compression. - Summary of Assessment and Plan Summary of Assessment and Plan: Patient to remain in the hospital due to symptomatic anemia, requiring blood transfusion. - Time Spent with Patient Total time spent is greater than 50% in coordination of care (as documented) at patient's floor/unit and/or counseling patient: 25 - 35 minutes (34) Plan of Care Discussed with: patient (Patient's and the nurse.) Internal Medicine: Result - Labs CBC & Chem 7: 06/18/18 05:01 06/18/18 05:01 Labs: Short CBC 06/17/18 06/18/18 Range/Units 14:19 05:01 WBC 11.1 9.5 (4.3-11.1) K/mcL Hgb 7.5 L 7.3 L (12.9-16.9) g/dL Hct 24.3 L 24.3 L (37.5-50.1) % Plt Count 514 H 524 H (140-400) K/mcL Neutrophils # 7.7 5.7 (1.6-8.9) K/mcL BMP 06/17/18 06/18/18 14:19 05:01 Sodium 137 141 Potassium 4.2 4.1 Chloride 104 106 Carbon Dioxide 25 25 BUN 18 18 Creatinine 0.74 0.78 Glucose 98 98 Calcium 9.0 8.6 Cardiac Enzymes 06/17/18 Range/Units 14:19 Troponin I < 0.03 (< 0.04) ng/mL Liver Function 06/17/18 Range/Units 14:19 Total Bilirubin 0.3 (0.3-1.0) mg/dL AST 14 (13-39) Units/L ALT 51 (7-52) Units/L Alkaline Phosphatase 124 H (34-104) Units/L Albumin 3.4 L (3.5-5.7) g/dL Urine 06/17/18 Range/Units 14:40 Urine Color Yellow (Yellow) Urine Clarity Clear (Clear) Urine pH 6.5 (5.0-8.0) pH Units Ur Specific [place] 1.014 (1.010-1.025) Urine Protein Negative (Neg-Trace) mg/dL Urine Glucose (UA) Normal (Normal) mg/dL - Impressions Impressions Chest X-Ray 06/17/18 14:02 IMPRESSION: 1. Small left pleural effusion suspected. Left basilar atelectasis versus infiltrate. 2. Cardiomegaly and pulmonary vascular congestion. D/ / Amanda Fall MD / Amanda Fall MD Interpreting Provider: Amanda Fall MD - VTE Reasons for not Prescribing Prophylaxis: Treatment not Indicated - Low risk for VTE Deep Vein Thrombosis/Pulmonary Embolism Present on Admission: No Consult Discharge Plan - Plan Referrals: Corry Wang CNP [Primary Care Provider] - (1) Anemia Qualifiers: Anemia type: unspecified type Qualified Code(s): D64.9 - Anemia, unspecified (2) CAD (coronary artery disease) Qualifiers: Coronary Disease-Associated Artery/Lesion type: [place] artery [place] vs. transplanted heart: [place] heart Associated angina: without angina Qualified Code(s): I25.10 - Atherosclerotic heart disease of [place] coronary artery without angina pectoris
[2018-06-18] MEDS ORDERED: Isovue-370 500 ML INFUS..BTL IV ONE (14:00)
[2018-06-18 15:35] LABS: Basophils # 0.1 K/mcL (0.0-0.2); Basophils % 0.8 %; Eosinophils # 0.4 K/mcL (0.0-0.6); Eosinophils % 3.8 %; Hematocrit 25.9 % (37.5-50.1); Hemoglobin 7.9 g/dL (12.9-16.9); Immature Granulocytes % 0.4 % (0-4); Lymphocytes % 20.6 %; Mean Corpuscular HGB Conc 30.5 g/dL (31.6-35.5); Mean Corpuscular Hemoglobin 28.9 pg (28.0-33.3); Mean Corpuscular Volume 94.9 fL (83.0-100.0); Monocytes % 9.9 %; Neutrophils # 6.4 K/mcL (1.6-8.9); Platelet Count 514 K/mcL (140-400); Red Blood Count 2.73 M/mcL (4.19-5.50); Red Cell Distribution Width 14.6 % (11.5-14.5); Segmented Neutrophils % 64.5 %
[2018-06-18] MEDS ORDERED: 0.9 % Sodium Chloride 250 ML ONE (16:46)
[2018-06-18] MEDS ORDERED: Furosemide 20 MG TABLET PO SCH (18:00)
[2018-06-18] MEDS ORDERED: D5% in 0.9% NACL 1,000 ML IVC SCH (18:00)
[2018-06-18] MEDS ORDERED: Acetaminophen 325 MG TABLET PO ONE (18:58)
[2018-06-18 19:26] LABS: Basophils # 0.1 K/mcL (0.0-0.2); Basophils % 0.9 %; Eosinophils # 0.4 K/mcL (0.0-0.6); Eosinophils % 3.9 %; Hematocrit 28.2 % (37.5-50.1); Hemoglobin 8.6 g/dL (12.9-16.9); Immature Granulocytes % 0.4 % (0-4); Lymphocytes # 2.1 K/mcL (0.6-4.6); Mean Corpuscular HGB Conc 30.5 g/dL (31.6-35.5); Mean Corpuscular Hemoglobin 28.7 pg (28.0-33.3); Mean Platelet Volume 8.8 fL (9.4-12.4); Monocytes # 0.9 K/mcL (0.0-1.3); Monocytes % 9.7 %; Neutrophils # 6.1 K/mcL (1.6-8.9); Platelet Count 543 K/mcL (140-400); Segmented Neutrophils % 63.1 %
[2018-06-19 01:52] LABS: Bilirubin,Urine Negative (Negative); Blood,Urine Negative (Negative); Clarity,Urine Clear (Clear); Color,Urine Yellow (Yellow); Glucose,Urine (UA) Normal (Normal); Ketones,Urine Negative (Negative); Leukocyte Esterase,Urine Negative (Negative); Nitrite,Urine Negative (Negative); Protein,Urine Negative (Neg-Trace); Specific Gravity,Urine 1.012 (1.010-1.025); Urobilinogen,Urine Normal (Normal)
[2018-06-19 04:59] LABS: Basophils # 0.1 K/mcL (0.0-0.2); Eosinophils # 0.4 K/mcL (0.0-0.6); Eosinophils % 4.3 %; Hematocrit 26.1 % (37.5-50.1); Hemoglobin 7.9 g/dL (12.9-16.9); Immature Granulocytes % 0.3 % (0-4); Lymphocytes % 22.5 %; Mean Corpuscular HGB Conc 30.3 g/dL (31.6-35.5); Mean Corpuscular Hemoglobin 28.3 pg (28.0-33.3); Mean Corpuscular Volume 93.5 fL (83.0-100.0); Monocytes # 0.9 K/mcL (0.0-1.3); Monocytes % 10.5 %; Neutrophils # 5.4 K/mcL (1.6-8.9); Platelet Count 487 K/mcL (140-400); Red Blood Count 2.79 M/mcL (4.19-5.50); Red Cell Distribution Width 15.1 % (11.5-14.5); Segmented Neutrophils % 61.4 %
[2018-06-19 05:12] LABS: BUN/Creatinine Ratio 22 (6-26); Blood Urea Nitrogen 16 mg/dL (6-20); Calcium 8.6 mg/dL (8.6-10.3); Carbon Dioxide 25 mEq/L (23-29); Chloride 106 mEq/L (98-107); Glucose 109 mg/dL (70-105); Magnesium 2.1 mg/dL (1.6-2.6); Osmolality,Calculated 292 (280-300); Phosphorous 4.8 mg/dL (2.7-4.5); Sodium 140 mEq/L (136-145); eGFR For Non-African Americans > 60 (> 60)
[2018-06-19] MEDS: Aspirin Enteric Coated 81 MG Tablet PO SCH (07:59)
[2018-06-19] MEDS: Pantoprazole 40 MG VIAL IVP SCH (08:01)
[2018-06-19] MEDS ORDERED: Furosemide 20 MG TABLET PO SCH (09:00)
[2018-06-19 11:52] VITALS: BP 104/73
--- NOTE | 2018-06-19 12:12 | Discharge Summary ---
- NOTES TO OUTPATIENT PROVIDER Notes to Outpatient Provider: Follow-up with your primary care physician to obtain a CBC within a week of hospital discharge. Orders not resulted at time of discharge: Pending orders 06/17/18 16:58 Transfusion Reaction [BBK] Routine 06/18/18 19:12 Transfusion Reaction [BBK] Stat Date of Encounter: 06/19/18 Time of Encounter: 12:09 - Discharge Diagnosis (1) Anemia Priority: Primary Status: Acute Assessment and Plan: FOBT negative. No active signs of bleedings. Qualifiers: Anemia type: unspecified type Qualified Code(s): D64.9 - Anemia, unspecified (2) CAD (coronary artery disease) Priority: Secondary Status: Chronic Assessment and Plan: S/P CABG Qualifiers: Coronary Disease-Associated Artery/Lesion type: [place] artery [place] vs. transplanted heart: beaver heart Associated angina: without angina Qualified Code(s): I25.10 - Atherosclerotic heart disease of beaver coronary artery without angina pectoris (3) Weakness Priority: Secondary Status: Acute Assessment and Plan: Improving (4) Duodenal ulcer Priority: Secondary Status: Chronic (5) Pleural effusion, left Priority: Secondary Status: Acute Assessment and Plan: Most likely related to recent CABG surgery. No signs of infection. Hospital course: Mr. Velasquez is a 57 year old male past medical history significant for hyperlipidemia, and coronary artery disease status post CABG on 05/30/18. Patient presented to the emergency room due to generalized weakness and exertional dyspnea. Patient reported that during his previous hospitalization he had an episode of GI bleed, requiring an EGD and was diagnosed with a gastric ulcers. Patient admitted to the hospital due to generalized weakness possible due to anemia. Hb of 7.5 and Hct 24.3 on presentation. Patient work up for possible GI bleed, FOBT was negative, CT abd/Pelv with IV contrast: no acute intra-abdominal or pelvic abnormality. Patient symptoms improved following the blood transfusion. Patient is hemodynamically stable to be discharged home. Recommended to follow with cardiology as outpatient and with his PCP within a week to have a repeat CBC. - Time Spent with Patient Total time spent providing and/or coordinating discharge services: Greater than 30 minutes (35) - Discharge Medications Prescriptions: Ferrous Sulfate 325 mg PO BIDWM 30 Days #60 tablet Metoprolol [Lopressor] 25 mg PO BID 30 Days #60 tablet Home Medications: Rosuvastatin [Crestor] 20 mg PO HS 05/27/18 [History] Aspirin Enteric Coated [Aspirin EC] 81 mg PO DAILY #60 tablet. 06/09/18 [Rx] Docusate [Colace] 100 mg PO DAILY PRN 06/17/18 [History] OxyCODONE/APAP 5/325 [Percocet 5/325 MG] 1 each PO DAILY PRN 06/17/18 [History] Pantoprazole [Protonix] 40 mg PO BID 06/17/18 [History] Ferrous Sulfate 325 mg PO BIDWM 30 Days #60 tablet 06/19/18 [Rx] Metoprolol [Lopressor] 25 mg PO BID 30 Days #60 tablet 06/19/18 [Rx] Allergies/Adverse Reactions: Allergy/AdvReac Type Severity Reaction Status Date / Time No Known Allergies Allergy Verified 06/17/18 16:49 Date of admission: 06/17/18 19:31 Primary care physician: Corry Wang CNP Consults: 06/19/18 12:02 Consult to Physical Therapy [CONS] Routine Comment: Evaluate, develop and implement POC Reason for Consult: Generalized weakness. Does patient have active BEDREST order?: No Is patient medically & hemodynamically stable?: Yes 06/19/18 12:03 Consult to Occupational Therapy [CONS] Routine Comment: Evaluate, develop and implement POC Reason for Consult: Generalized weakness. Does patient have active BEDREST order?: No Is patient medically & hemodynamically stable?: Yes - Constitutional Vitals: Temp Pulse Resp BP Pulse Ox 97.5 F L 68 17 104/73 98 06/19/18 11:49 06/19/18 11:49 06/19/18 07:17 06/19/18 11:49 06/19/18 11:49 General appearance: Present: A&O X 3, no acute distress, answers questions appropriately Exam: Vitals: Reviewed General: Obese. In no acute distress Skin: Warm and supple. Healing midsternal postop scar Neck: No lymphadenopathy. No JVD. No carotid bruits. No palpable thyroid. Chest: Clear to auscultation bilaterally, no wheezing rales or rhonchi. Heart: Normal S1 & S2; rhythmic. No rubs or murmurs. Abdomen: Obese, Non-distended, soft and non-tender to palpation. Extremities: No edema. Normal distal pulses. Neurological: Awake, alert and oriented to person, place and time. No focal deficits. Psych: Affect appropriate. - Patient Status Disposition: Home, Self-Care Condition: Good Functional capacity at discharge: independent ambulation Overall status at discharge: patient is progressing back to baseline - Discharge Instructions Follow Up With: Corry Wang CNP [Primary Care Provider] - - Diet and Activity Activity: as per physical therapy Diet: advance to your usual diet - VTE Reasons for not Prescribing Prophylaxis: Treatment not Indicated - Low risk for VTE Deep Vein Thrombosis/Pulmonary Embolism Present on Admission: No
--- NOTE | 2018-06-21 19:22 | Electrocardiograph Report ---
[place] [id number] Test Date: 2018-06-17 Pat Name: Evert Velasquez Department: EXAM9 Room: 2NE29 Gender: M Facing Grinder: : 1960 Requested By: Manuel Freitas Order Number: [id number] Reading MD: Arnold Paz Measurements Intervals [place] Rate: 83 P: 81 VA: 165 QRS: 39 QRSD: 81 T: 70 QT: 387 QTc: 455 Interpretive Statements Sinus rhythm Nonspecific T abnrm, anterolateral leads Electronically Signed On 06-21-2018 19:20:49 EDT by Arnold Paz
== END 2018-06-19 19:42 | disposition home or self-care (01) ==
LOC: SUATTDRO → 2NENU 13:38 → EMEROOARM 13:38 → SUATTDRO 19:31 → 2NENU 21:14
PROVIDERS: ADMIT Hospitalist; ATTEND Internal Medicine

== ENCOUNTER 2019-02-07 20:27 | Inpatient (IN) ==
[2019-02-07] MEDS ORDERED: Isovue-370 500 ML BOTTLE IVP ONE (20:42)
[2019-02-07] MEDS ORDERED: 0.9 % Sodium Chloride 1,000 ML IVC ONE ×2 (20:46→23:08)
--- NOTE | 2019-02-07 20:48 | Emergency Department Note ---
Disposition Clinical Impression: Hemopneumothorax on right Disposition: Admitted As Inpatient Referrals: Corry Wang CNP [Primary Care Provider] - Forms: ED Satisfaction Letter Time of Disposition: 23:35 General Adult HPI - General Chief complaint: ED Shortness of Breath/Dyspnea Stated complaint: SOB/ Coughing Time Seen by Provider: 02/07/19 20:42 Source: patient, family Limitations: no limitations - History of Present Illness Pain Scale: 6 - Related Data Home Medications Medication Instructions Recorded Confirmed Rosuvastatin [Crestor] 20 mg PO HS 05/27/18 02/07/19 Ferrous Sulfate [Iron] 325 mg PO QPM 12/11/18 02/07/19 Multivitamin [Multivitamins] 1 each PO QAM 12/11/18 02/07/19 Metoprolol Succinate 25 mg PO QPM 12/24/18 02/07/19 Aspirin Enteric Coated [Aspirin EC] 81 mg PO QAM 01/30/19 02/07/19 Tramadol HCl [Ultram] 50 mg PO DAILY PRN 01/30/19 02/07/19 Gabapentin [Neurontin] 300 mg PO BID 02/07/19 02/07/19 Hydrocodone/Acetaminophen [[place] 1 each PO Q4H PRN 02/07/19 02/07/19 7.5-325 Tablet] Itraconazole [Sporanox] 200 mg PO BID 02/07/19 02/07/19 Allergies Allergy/AdvReac Type Severity Reaction Status Date / Time No Known Allergies Allergy Verified 02/07/19 20:29 Past Medical History - Past Medical History Medical history: Reports: coronary artery disease, GI bleed, hyperlipidemia, hypertension Surgical history: Reports: appendectomy, coronary bypass (CABG) Psychiatric history: Reports: no psych history - Social History Smoking Status: Former smoker Smokeless Tobacco Status: No Alcohol use: Reports: occasionally Drug use: Reports: none Physical Exam - General Limitations: no limitations General appearance: alert Course Vital Signs Temperature 98.0 F 02/07/19 20:29 Pulse Rate 107 02/07/19 20:29 Respiratory Rate 24 02/07/19 20:29 Blood Pressure 0/0 02/07/19 20:29 O2 Sat by Pulse Oximetry 98 02/07/19 20:29 Temperature 98.0 F 02/07/19 20:29 Pulse Rate 102 06/21/19 22:17 Respiratory Rate 18 02/07/19 22:17 Blood Pressure 139/95 02/07/19 22:17 O2 Sat by Pulse Oximetry 96 02/07/19 22:17 Oxygen Delivery Oxygen Delivery Nasal Cannula Medical Decision Making - Lab Data Result diagrams: 02/07/19 20:47 02/07/19 20:47 Lab Results 02/07/19 02/07/19 02/07/19 Range/Units 20:47 20:47 20:47 WBC 22.1 H D (4.3-11.1) K/mcL RBC 4.40 (4.19-5.50) M/mcL Hgb 13.8 (12.9-16.9) g/dL Hct 40.6 (37.5-50.1) % MCV 92.3 (83.0-100.0) fL MCH 31.4 (28.0-33.3) pg MCHC 34.0 (31.6-35.5) g/dL RDW 12.2 (11.5-14.5) % Plt Count 352 D (140-400) K/mcL MPV 9.7 (9.4-12.4) fL Immature Gran % 1.7 (0-4) % Seg Neutrophils % 51.5 % Lymphocytes % 33.7 % Monocytes % 10.7 % Eosinophils % 1.8 % Basophils % 0.6 % Neutrophils # 11.4 H (1.6-8.9) K/mcL Lymphocytes # 7.5 H (0.6-4.6) K/mcL Monocytes # 2.4 H (0.0-1.3) K/mcL Eosinophils # 0.4 (0.0-0.6) K/mcL Basophils # 0.1 (0.0-0.2) K/mcL Nucleated RBCs/100 WBC 0.1 H (0) /100 WBC Reactive Lymphocytes Present A (Not Present) Toxic Granulation Present A (Not Present) Platelet Estimate Normal (Normal) Large Platelets Present A (Not Present) PT 12.3 H (9.4-12.1) Seconds INR 1.1 Sodium 137 (136-145) mEq/L Potassium 4.5 (3.5-5.1) mEq/L Chloride 102 (98-107) mEq/L Carbon Dioxide 24 (23-29) mEq/L BUN 21 H (6-20) mg/dL Creatinine 1.07 (0.70-1.30) mg/dL Est GFR ( Amer) > 60 (> 60) Est GFR (Non-Af Amer) > 60 (> 60) BUN/Creatinine Ratio 20 (6-26) Glucose 194 H (70-105) mg/dL Calculated Osmolality 292 (280-300) Lactic Acid (0.5-2.2) mmol/L Calcium 9.8 (8.6-10.3) mg/dL Phosphorus 4.6 H (2.7-4.5) mg/dL Magnesium 2.3 (1.6-2.6) mg/dL Total Bilirubin 0.5 (0.3-1.0) mg/dL Direct Bilirubin 0.2 (0.0-0.2) mg/dL Indirect Bilirubin 0.3 (0.0-1.2) mg/dL AST 24 (13-39) Units/L ALT 35 (7-52) Units/L Alkaline Phosphatase 88 (34-104) Units/L Troponin I < 0.03 (< 0.04) ng/mL Serum Total Protein 6.8 (6.4-8.9) g/dL Albumin 3.9 (3.5-5.7) g/dL Globulin 2.9 (2.4-3.5) g/dL Albumin/Globulin Ratio 1.3 (1.1-2.2) Lipase 34 (11-82) Units/L / Range/Units 21:31 WBC (4.3-11.1) K/mcL RBC (4.19-5.50) M/mcL Hgb (12.9-16.9) g/dL Hct (37.5-50.1) % MCV (83.0-100.0) fL MCH (28.0-33.3) pg MCHC (31.6-35.5) g/dL RDW (11.5-14.5) % Plt Count (140-400) K/mcL MPV (9.4-12.4) fL Immature Gran % (0-4) % Seg Neutrophils % % Lymphocytes % % Monocytes % % Eosinophils % % Basophils % % Neutrophils # (1.6-8.9) K/mcL Lymphocytes # (0.6-4.6) K/mcL Monocytes # (0.0-1.3) K/mcL Eosinophils # (0.0-0.6) K/mcL Basophils # (0.0-0.2) K/mcL Nucleated RBCs/100 WBC (0) /100 WBC Reactive Lymphocytes (Not Present) Toxic Granulation (Not Present) Platelet Estimate (Normal) Large Platelets (Not Present) PT (9.4-12.1) Seconds INR Sodium (136-145) mEq/L Potassium (3.5-5.1) mEq/L Chloride (98-107) mEq/L Carbon Dioxide (23-29) mEq/L BUN (6-20) mg/dL Creatinine (0.70-1.30) mg/dL Est GFR ( Amer) (> 60) Est GFR (Non-Af Amer) (> 60) BUN/Creatinine Ratio (6-26) Glucose (70-105) mg/dL Calculated Osmolality (280-300) Lactic Acid 1.2 (0.5-2.2) mmol/L Calcium (8.6-10.3) mg/dL Phosphorus (2.7-4.5) mg/dL Magnesium (1.6-2.6) mg/dL Total Bilirubin (0.3-1.0) mg/dL Direct Bilirubin (0.0-0.2) mg/dL Indirect Bilirubin (0.0-1.2) mg/dL AST (13-39) Units/L ALT (7-52) Units/L Alkaline Phosphatase (34-104) Units/L Troponin I (< 0.04) ng/mL Serum Total Protein (6.4-8.9) g/dL Albumin (3.5-5.7) g/dL Globulin (2.4-3.5) g/dL Albumin/Globulin Ratio (1.1-2.2) Lipase (11-82) Units/L Attestation Statement - Attestation Attestation: I examined this patient and my medical decision-making was reviewed with the Resident Physician. I agree with the documented findings, disposition and treatment plan as described except to the extent set forth below. Patient presents to the ED with sudden onset of chest pain and shortness of breath. Pain began about 2 hours prior to arrival. Patient coughs. Patient is status post upper lobectomy done a week ago. What was thought to be cancer was a fungal infection. He is taking by mouth meds. He had a chest tube removed 2 days ago. On examination he is diaphoretic. Dyspneic. Satting 98 on room air. Ecchymosis to the right lateral chest wall. Steri-Strips intact. No drainage. Abdomen soft. Plan. Stop herbal chest x-ray was performed. Denies any obvious pneumothorax. We will get CT chest. Basic labs. Blood cultures. Cardiac workup as well. Discussed with Dr. Roy. No recommendations at this time. EKG was reviewed with the resident. No acute ischemic changes. Labs and CT reviewed. White count is significant elevated. We will start him on some broad-spectrum anabiotic. Discussed again with who has no further recommendations. Admitted to medicine. Chest CTA 02/07/19 20:42 IMPRESSION: 1. No scan evidence for pulmonary embolus. 2. Multiloculated right-sided hemopneumothorax. 3. Coronary artery disease. D/ / Gil Campbell MD / Gil Campbell MD Interpreting Provider: Gil Campbell MD Chest X-Ray 02/07/19 20:42 IMPRESSION: Consolidation within the right mid upper lung, nonspecific, atelectasis versus pneumonia. That must be followed to resolution. D/ / Benjamin Myers MD / Benjamin Myers MD Interpreting Provider: Benjamin Myers MD
[2019-02-07] MEDS: *HR* FentaNYL (PF) 100 MCG/2 ML VIAL IVP ONE ×2 (21:06→21:11)
[2019-02-07 21:12] LABS: Basophils # 0.1 K/mcL (0.0-0.2); Basophils % 0.6 %; Eosinophils # 0.4 K/mcL (0.0-0.6); Eosinophils % 1.8 %; Hematocrit 40.6 % (37.5-50.1); Hemoglobin 13.8 g/dL (12.9-16.9); Immature Granulocytes % 1.7 % (0-4); Lymphocytes # 7.5 K/mcL (0.6-4.6); Lymphocytes % 33.7 %; Mean Corpuscular Hemoglobin 31.4 pg (28.0-33.3); Mean Corpuscular Volume 92.3 fL (83.0-100.0); Mean Platelet Volume 9.7 fL (9.4-12.4); Monocytes # 2.4 K/mcL (0.0-1.3); Monocytes % 10.7 %; Neutrophils # 11.4 K/mcL (1.6-8.9); Nucleated Red Blood Cells 0.1 /100 WBC (0); Platelet Count 352 K/mcL (140-400); Red Cell Distribution Width 12.2 % (11.5-14.5); Segmented Neutrophils % 51.5 %
[2019-02-07 21:15] LABS: White Blood Count 22.1 K/mcL (4.3-11.1)
--- NOTE | 2019-02-07 21:17 | Emergency Department Note ---
Disposition Clinical Impression: Hemopneumothorax on right Disposition: Admitted As Inpatient Referrals: Corry Wang CNP [Primary Care Provider] - Forms: ED Satisfaction Letter Time of Disposition: 23:28 SOB HPI - General Chief Complaint: ED Shortness of Breath/Dyspnea Stated Complaint: SOB/ Coughing Time Seen by Provider: 02/07/19 20:42 Source: patient, family Mode of arrival: ambulatory Limitations: no limitations Nursing Notes Reviewed: Yes Vital Signs Reviewed: Yes - History of Present Illness 58 yo male with recent right lobectomy 02/[address] Roy presents to the ED with sudden onset chest pain with associated shortness of breath which occurred after coughing today. Pt continues to have chest pain and shortness of breath upon arrival. He denies fevers, coughing up blood, abdominal pain, nausea, vomiting, and other symptoms at this time. 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 He had been doing well status post the surgery until today. - Related Data Home Medications Medication Instructions Recorded Confirmed Rosuvastatin [Crestor] 20 mg PO HS 05/27/18 01/30/19 Ferrous Sulfate [Iron] 325 mg PO QPM 12/11/18 01/30/19 Multivitamin [Multivitamins] 1 each PO QAM 12/11/18 01/30/19 Metoprolol Succinate 25 mg PO QPM 12/24/18 01/30/19 Aspirin Enteric Coated [Aspirin EC] 81 mg PO QAM 01/30/19 01/30/19 Tramadol HCl [Ultram] 50 mg PO DAILY PRN 01/30/19 01/30/19 Gabapentin [Neurontin] 300 mg PO BID 02/07/19 02/07/19 Hydrocodone/Acetaminophen [[place] 1 each PO Q4H PRN 02/07/19 02/07/19 7.5-325 Tablet] Itraconazole [Sporanox] 200 mg PO BID 02/07/19 02/07/19 Allergies Allergy/AdvReac Type Severity Reaction Status Date / Time No Known Allergies Allergy Verified 02/07/19 20:29 All systems ED: reviewed and negative except as stated. Review of Systems: As Per HPI Constitutional: Denies: fever, chills, weakness Cardiovascular: Reports: chest pain, dyspnea on exertion. Denies: palpitations, orthopnea, edema Respiratory: Reports: cough, dyspnea. Denies: wheezes, hemoptysis Gastrointestinal: Denies: abdominal pain, nausea, vomiting Musculoskeletal: Reports: back pain. Denies: neck pain Integumentary: Denies: rash Neurological: Denies: headache Endocrine: Reports: fatigue Past Medical History - Past Medical History Attestation: Yes The following information was validated with the patient. Source: patient, old records reviewed Medical history: Reports: coronary artery disease, GI bleed, hyperlipidemia, hypertension Surgical history: Reports: appendectomy, coronary bypass (CABG) Psychiatric history: Reports: no psych history - Social History Smoking Status: Former smoker Smokeless Tobacco Status: No Alcohol use: Reports: occasionally Drug use: Reports: none Physical Exam - General Limitations: no limitations General appearance: alert, in distress (moderate) - Head Head exam: atraumatic, normocephalic - Eye Eye exam: Present: normal appearance, EOMI - ENT ENT exam: normal exam, normal oropharynx - Neck Neck exam: Present: normal inspection. Absent: tenderness, lymphadenopathy - Chest Chest inspection: Present: normal inspection, tenderness. Absent: rash - Respiratory Respiratory exam: Present: wheezes (diminished breath sounds throughout lung bejarano) - Cardiovascular Cardiovascular exam: Present: normal rhythm, tachycardia - Abdominal Exam Abdominal exam: Present: soft, Non-Tender. Absent: distention, guarding, rebound, rigidity - Extremities Exam Extremities exam: Present: normal inspection. Absent: tenderness, pedal edema - Neurological Exam Neurological exam: Present: alert, oriented X3 - Psychiatric Psychiatric exam: Present: normal affect, normal mood - Skin Skin exam: Present: warm, intact, diaphoresis Course Vital Signs Temperature 98.0 F 02/07/19 20:29 Pulse Rate 107 02/07/19 20:29 Respiratory Rate 24 02/07/19 20:29 Blood Pressure 0/0 02/07/19 20:29 O2 Sat by Pulse Oximetry 98 02/07/19 20:29 Temperature 98.0 F 02/07/19 20:29 Pulse Rate 102 02/07/19 22:17 Respiratory Rate 18 02/07/19 22:17 Blood Pressure 139/95 02/07/19 22:17 O2 Sat by Pulse Oximetry 96 02/07/19 22:17 Oxygen Delivery Oxygen Delivery Nasal Cannula Shortness of Breath/Dyspnea - [facility] Narrative Medical decision making narrative: Patient presents with sudden onset of shortness of breath and chest pain after coughing with recent lobectomy on 02/[address] Roy. Chest x-ray done at the bedside does not demonstrate an acute pneumothorax. We will obtain CTA imaging for further evaluation of this patient's chest pain including but not limited to pulmonary embolus, abscess, and pneumothorax. We will also obtain EKG, basic lab work and troponin. Patient will be given fentanyl for pain and a liter of IV fluids. Dr. Roy was called and is not worried about any acute event happening from the surgery. 2225 - patient's chest x-ray was read as acute new consolidation of the right middle and upper lobe with pneumonia as the favorable cause. Patient's white count is significantly elevated at 22. Lactic acid is within normal limits at 1.2. 2300 - CTA of the patient's chest does not demonstrate acute pulmonary embolus but does show a right-sided hemopneumothorax. Spoke with Dr. Roy who states that since the patient is stable at this time we should admit to the hospitalist and Dr. Garrido will see the patient in the morning for further evaluation. Hospitalist has been paged at this time. Patient will be started on clindamycin and Zosyn due to his significant increase in white blood count and CAT scan abnormalities. Patient will also be given another liter of fluids. 2325 - pt has been accepted by the hospitalist at this time. - Medical Records Medical records reviewed: Yes I reviewed the patient's medical records. - Lab Data Lab results reviewed: Yes I reviewed the patient's lab results. Result diagrams: 02/07/19 20:47 02/07/19 20:47 Lab Results 02/07/19 02/07/19 02/07/19 Range/Units 20:47 20:47 20:47 WBC 22.1 H D (4.3-11.1) K/mcL RBC 4.40 (4.19-5.50) M/mcL Hgb 13.8 (12.9-16.9) g/dL Hct 40.6 (37.5-50.1) % MCV 92.3 (83.0-100.0) fL MCH 31.4 (28.0-33.3) pg MCHC 34.0 (31.6-35.5) g/dL RDW 12.2 (11.5-14.5) % Plt Count 352 D (140-400) K/mcL MPV 9.7 (9.4-12.4) fL Immature Gran % 1.7 (0-4) % Seg Neutrophils % 51.5 % Lymphocytes % 33.7 % Monocytes % 10.7 % Eosinophils % 1.8 % Basophils % 0.6 % Neutrophils # 11.4 H (1.6-8.9) K/mcL Lymphocytes # 7.5 H (0.6-4.6) K/mcL Monocytes # 2.4 H (0.0-1.3) K/mcL Eosinophils # 0.4 (0.0-0.6) K/mcL Basophils # 0.1 (0.0-0.2) K/mcL Nucleated RBCs/100 WBC 0.1 H (0) /100 WBC Reactive Lymphocytes Present A (Not Present) Toxic Granulation Present A (Not Present) Platelet Estimate Normal (Normal) Large Platelets Present A (Not Present) PT 12.3 H (9.4-12.1) Seconds INR 1.1 Sodium 137 (136-145) mEq/L Potassium 4.5 (3.5-5.1) mEq/L Chloride 102 (98-107) mEq/L Carbon Dioxide 24 (23-29) mEq/L BUN 21 H (6-20) mg/dL Creatinine 1.07 (0.70-1.30) mg/dL Est GFR ( Amer) > 60 (> 60) Est GFR (Non-Af Amer) > 60 (> 60) BUN/Creatinine Ratio 20 (6-26) Glucose 194 H (70-105) mg/dL Calculated Osmolality 292 (280-300) Lactic Acid (0.5-2.2) mmol/L Calcium 9.8 (8.6-10.3) mg/dL Phosphorus 4.6 H (2.7-4.5) mg/dL Magnesium 2.3 (1.6-2.6) mg/dL Total Bilirubin 0.5 (0.3-1.0) mg/dL Direct Bilirubin 0.2 (0.0-0.2) mg/dL Indirect Bilirubin 0.3 (0.0-1.2) mg/dL AST 24 (13-39) Units/L ALT 35 (7-52) Units/L Alkaline Phosphatase 88 (34-104) Units/L Troponin I < 0.03 (< 0.04) ng/mL Serum Total Protein 6.8 (6.4-8.9) g/dL Albumin 3.9 (3.5-5.7) g/dL Globulin 2.9 (2.4-3.5) g/dL Albumin/Globulin Ratio 1.3 (1.1-2.2) Lipase 34 (11-82) Units/L / Range/Units 21:31 WBC (4.3-11.1) K/mcL RBC (4.19-5.50) M/mcL Hgb (12.9-16.9) g/dL Hct (37.5-50.1) % MCV (83.0-100.0) fL MCH (28.0-33.3) pg MCHC (31.6-35.5) g/dL RDW (11.5-14.5) % Plt Count (140-400) K/mcL MPV (9.4-12.4) fL Immature Gran % (0-4) % Seg Neutrophils % % Lymphocytes % % Monocytes % % Eosinophils % % Basophils % % Neutrophils # (1.6-8.9) K/mcL Lymphocytes # (0.6-4.6) K/mcL Monocytes # (0.0-1.3) K/mcL Eosinophils # (0.0-0.6) K/mcL Basophils # (0.0-0.2) K/mcL Nucleated RBCs/100 WBC (0) /100 WBC Reactive Lymphocytes (Not Present) Toxic Granulation (Not Present) Platelet Estimate (Normal) Large Platelets (Not Present) PT (9.4-12.1) Seconds INR Sodium (136-145) mEq/L Potassium (3.5-5.1) mEq/L Chloride (98-107) mEq/L Carbon Dioxide (23-29) mEq/L BUN (6-20) mg/dL Creatinine (0.70-1.30) mg/dL Est GFR ( Amer) (> 60) Est GFR (Non-Af Amer) (> 60) BUN/Creatinine Ratio (6-26) Glucose (70-105) mg/dL Calculated Osmolality (280-300) Lactic Acid 1.2 (0.5-2.2) mmol/L Calcium (8.6-10.3) mg/dL Phosphorus (2.7-4.5) mg/dL Magnesium (1.6-2.6) mg/dL Total Bilirubin (0.3-1.0) mg/dL Direct Bilirubin (0.0-0.2) mg/dL Indirect Bilirubin (0.0-1.2) mg/dL AST (13-39) Units/L ALT (7-52) Units/L Alkaline Phosphatase (34-104) Units/L Troponin I (< 0.04) ng/mL Serum Total Protein (6.4-8.9) g/dL Albumin (3.5-5.7) g/dL Globulin (2.4-3.5) g/dL Albumin/Globulin Ratio (1.1-2.2) Lipase (11-82) Units/L - Radiology Data Radiology results reviewed: Yes I reviewed the patient's radiology results. - EKG Data EKG attestation: Yes I reviewed and interpreted this EKG. EKG results narrative: EKG obtained at 20:37 on 02/07/2019 Heart rate 1 12 bpm, CO interval 152, QRS duration 79, QT 329, QTC 449 Sinus tachycardia with baseline wander in leads V4. No signs of acute ST segment elevations or depressions. No other T-wave abnormalities. No sign ificant changes when compared to previous EKG dated 12/05/2018 with the exception of the rate.
[2019-02-07 21:19] LABS: INR 1.1; Prothrombin Time 12.3 Seconds (9.4-12.1)
[2019-02-07 21:31] LABS: Reactive Lymphocytes Present (Not Present); Toxic Granulation Present (Not Present)
[2019-02-07 21:32] LABS: Large Platelets Present (Not Present); Platelet Estimate Normal (Normal)
[2019-02-07 21:34] LABS: Alanine Aminotransferase 35 Units/L (7-52); Albumin 3.9 g/dL (3.5-5.7); Albumin/Globulin Ratio 1.3 (1.1-2.2); Alkaline Phosphatase 88 Units/L (34-104); Aspartate Amino Transferase 24 Units/L (13-39); BUN/Creatinine Ratio 20 (6-26); Bilirubin,Direct 0.2 mg/dL (0.0-0.2); Bilirubin,Indirect 0.3 mg/dL (0.0-1.2); Bilirubin,Total 0.5 mg/dL (0.3-1.0); Blood Urea Nitrogen 21 mg/dL (6-20); Calcium 9.8 mg/dL (8.6-10.3); Carbon Dioxide 24 mEq/L (23-29); Chloride 102 mEq/L (98-107); Globulin 2.9 g/dL (2.4-3.5); Glucose 194 mg/dL (70-105); Lipase 34 Units/L (11-82); Magnesium 2.3 mg/dL (1.6-2.6); Osmolality,Calculated 292 (280-300); Phosphorous 4.6 mg/dL (2.7-4.5); Potassium 4.5 mEq/L (3.5-5.1); Sodium 137 mEq/L (136-145); Total Protein 6.8 g/dL (6.4-8.9); Troponin I < 0.03 ng/mL (< 0.04); eGFR For African Americans > 60 (> 60); eGFR For Non-African Americans > 60 (> 60)
[2019-02-07] MEDS ORDERED: Piperacillin/Tazobactam 3.375 GM in 0.9 % Sodium Chloride Mini Bag 100 ML IVPB ONE (23:07)
[2019-02-07] MEDS ORDERED: *HR* HYDROmorphone (PF) 1 MG/ML SYRINGE IVP ONE (23:39)
[2019-02-07 23:51] LABS: Bilirubin,Urine Negative (Negative); Blood,Urine Negative (Negative); Clarity,Urine Clear (Clear); Color,Urine Yellow (Yellow); Glucose,Urine (UA) Normal (Normal); Ketones,Urine Negative (Negative); Leukocyte Esterase,Urine Negative (Negative); Nitrite,Urine Negative (Negative); Protein,Urine Trace mg/dL (Neg-Trace); Specific Gravity,Urine 1.028 (1.010-1.025); Urobilinogen,Urine Normal (Normal)
[2019-02-08] MEDS ORDERED: GuaiFENesin/Codeine Oral Soln 5 ML UDC PO ONE (01:04)
[2019-02-08] MEDS ORDERED: Naloxone 0.4 MG/ML INJ IVP PRN (02:14)
[2019-02-08] MEDS ORDERED: Acetaminophen 325 MG TABLET PO PRN (02:14)
--- NOTE | 2019-02-08 02:24 | Internal Med History&Physical ---
<ThomasSarahChay Chato - Last Filed: 02/08/19 03:39> Date of Encounter: 02/08/19 Time of Encounter: 02:17 Internal Medicine - H&P: HPI Chief complaint: chest pain Admitted From: Emergency Dept Plans for Post Hospital Care: Home History of present illness: Mr. Velasquez is a 58 year old male with a past medical history of blastomycosis requiring lobectomy, coronary artery disease status post CABG. He had right upper lobectomy and pleurodesis performed one week ago by Dr. Roy and chest tube was removed from the right chest 2 days ago. Yesterday afternoon the patient was coughing and felt a sharp pain in his right chest, he presented to the emergency department where chest CT demonstrated right sided loculated hemopneumothorax. The patient was in significant pain but hemodynamically stable. Cardiothoracic surgery consultation recommending admitting the patient to the hospital overnight and he will be assessed by cardiothoracic surgery in the morning. On my evaluation the patient he complains of moderate right-sided chest pain but denies any left-sided chest pain, complains of mild shortness of breath, but denies any other complaints. She admits to a history of tobacco use but quit last year, denies alcohol or drug use. He has a family history of lung cancer in his father. Past Med Surg Social Fam HX - Past Medical History Medical history: coronary artery disease, GI bleed, hyperlipidemia, hypertension Additional medical history: CHEST PAIN Psychiatric history: no psych history - Past Surgical History Surgical History: appendectomy, coronary bypass (CABG) Additional surgical history: Right Upper lobectomy - Social History Smoking Status: Former smoker Smokeless Tobacco Status: No Alcohol use: occasionally Drug use: none - Family History Mother Living Status: Hx Family Cardiac Disorders: Yes Brother Living Status: Hx Family Cardiac Disorders: Yes ([place]) Internal Medicine - H&P: Meds Rosuvastatin [Crestor] 20 mg PO HS 05/27/18 [History] Ferrous Sulfate [Iron] 325 mg PO QPM 12/11/18 [History] Multivitamin [Multivitamins] 1 each PO QAM 12/11/18 [History] Metoprolol Succinate 25 mg PO QPM 12/24/18 [History] Aspirin Enteric Coated [Aspirin EC] 81 mg PO QAM 01/30/19 [History] Tramadol HCl [Ultram] 50 mg PO DAILY PRN 01/30/19 [History] Gabapentin [Neurontin] 300 mg PO BID 02/07/19 [History] Hydrocodone/Acetaminophen [[place] 7.5-325 Tablet] 1 each PO Q4H PRN 02/07/19 [History] Itraconazole [Sporanox] 200 mg PO BID 02/07/19 [History] Allergy/AdvReac Type Severity Reaction Status Date / Time No Known Allergies Allergy Verified 02/07/19 20:29 All Systems PM: A 10-system review of systems was performed and is negative for pertinent findings except as documented above in the HPI. - Constitutional Vitals: Temp Pulse Resp BP Pulse Ox 98.0 F 94 18 154/75 100 02/07/19 20:29 02/08/19 02:06 02/08/19 02:06 02/08/19 02:06 02/08/19 02:06 General appearance: Present: A&O X 3, no acute distress Exam: Alert and oriented, normal affect Cranial nerves II through XII intact, no focal deficits Pupils equal and reactive to light, extraocular movements intact Heart in regular rate and rhythm without murmur or gallop auscultated Lungs clear to auscultation on the left, diminished breath sounds on the right Abdomen obese and soft and nontender with normal bowel sounds noted Motor 5/5 in all 4 extremities, sensation intact Skin warm and dry without rash. There is a bandage over the chest tube site on the right chest wall and significant ecchymosis to the right chest wall. There is a black eschar lesion to the inner right thigh and keloidal appearing lesion to left upper back associated with blastomycosis dermatitis Internal Med - H&P Results - Labs CBC & Chem 7: 02/07/19 20:47 02/07/19 20:47 Labs: Short CBC 02/07/19 Range/Units 20:47 WBC 22.1 H D (4.3-11.1) K/mcL Hgb 13.8 (12.9-16.9) g/dL Hct 40.6 (37.5-50.1) % Plt Count 352 D (140-400) K/mcL Neutrophils # 11.4 H (1.6-8.9) K/mcL BMP 02/07/19 20:47 Sodium 137 Potassium 4.5 Chloride 102 Carbon Dioxide 24 BUN 21 H Creatinine 1.07 Glucose 194 H Calcium 9.8 Cardiac Enzymes 02/07/19 Range/Units 20:47 Troponin I < 0.03 (< 0.04) ng/mL Liver Function 02/07/19 Range/Units 20:47 Total Bilirubin 0.5 (0.3-1.0) mg/dL Direct Bilirubin 0.2 (0.0-0.2) mg/dL AST 24 (13-39) Units/L ALT 35 (7-52) Units/L Alkaline Phosphatase 88 (34-104) Units/L Albumin 3.9 (3.5-5.7) g/dL Urine 02/07/19 Range/Units 23:40 Urine Color Yellow (Yellow) Urine Clarity Clear (Clear) Urine pH 6.0 (5.0-8.0) pH Units Ur Specific [place] 1.028 H (1.010-1.025) Urine Protein Trace (Neg-Trace) mg/dL Urine Glucose (UA) Normal (Normal) mg/dL - Impressions ITS Impressions Chest CTA 02/07/19 20:42 IMPRESSION: 1. No scan evidence for pulmonary embolus. 2. Multiloculated right-sided hemopneumothorax. 3. Coronary artery disease. D/ / Gil Campbell MD / Gil Campbell MD Interpreting Provider: Gil Campbell MD Chest X-Ray 02/07/19 20:42 IMPRESSION: Consolidation within the right mid upper lung, nonspecific, atelectasis versus pneumonia. That must be followed to resolution. D/ / Benjamin Myers MD / Benjamin Myers MD Interpreting Provider: Benjamin Myers MD - Assessment and Plan (1) Hemopneumothorax on right Current Visit: Yes Status: Acute Assessment and plan: Patient has history of necrotizing pneumonia due to blastomycosis infection requiring right upper lobectomy Lobectomy occurred one week ago and chest tube was moved 2 days ago, patient had sudden onset of right chest pain yesterday EKG and troponin were negative, CTA of the chest was negative for PE but positive for loculated right-sided hemopneumothorax Patient is hemodynamically stable and in moderate pain responding to analgesia, saturating and ventilating appropriately on 2 L nasal cannula Cardiothoracic surgery recommending admission to hospital and evaluation in the morning We will admit to 2 N. stepdown unit, oxycodone for pain control, itraconazole, guaifenesin/codeine for cough suppressant (2) Blastomycosis Current Visit: Yes Status: Acute Assessment and plan: Known history of blastomycosis infection, continue home itraconazole (3) CAD (coronary artery disease) Current Visit: No Status: Chronic Assessment and plan: History of coronary artery disease status post CABG Patient is not currently having any left-sided chest pain EKG and troponin negative for signs of ACS Qualifiers: Coronary Disease-Associated Artery/Lesion type: bypass graft [place] vs. transplanted heart: [place] heart Associated angina: without angina Qualified Code(s): I25.810 - Atherosclerosis of coronary artery bypass graft(s) without angina pectoris (4) Leukocytosis Current Visit: Yes Status: Acute Assessment and plan: CBC significant for leukocytosis, patient is afebrile Suspect leukocytosis is reactive secondary to recent surgery However given higher risk patient was given vancomycin and Zosyn in the ER On further evaluation patient's symptoms do not appear to be infection related, we will not continue antibiotics at this time Qualifiers: Leukocytosis type: unspecified Qualified Code(s): D72.829 - Elevated white blood cell count, unspecified - Time Spent With Patient Total time spent is greater than 50% in coordination of care (as documented) at patient's floor/unit and/or counseling patient: <Shellie Parnell - Last Filed: 02/08/19 04:15> Date of Encounter: 02/08/19 All Systems PM: A 10-system review of systems was performed and is negative for pertinent findings except as documented above in the HPI. - Constitutional Vitals: Temp Pulse Resp BP Pulse Ox 97.8 F 95 18 147/85 97 02/08/19 03:38 02/08/19 03:38 02/08/19 03:38 02/08/19 03:38 02/08/19 03:38 Internal Med - H&P Results - Labs CBC & Chem 7: 02/07/19 20:47 02/07/19 20:47 Labs: Short CBC 02/07/19 Range/Units 20:47 WBC 22.1 H D (4.3-11.1) K/mcL Hgb 13.8 (12.9-16.9) g/dL Hct 40.6 (37.5-50.1) % Plt Count 352 D (140-400) K/mcL Neutrophils # 11.4 H (1.6-8.9) K/mcL BMP 02/07/19 20:47 Sodium 137 Potassium 4.5 Chloride 102 Carbon Dioxide 24 BUN 21 H Creatinine 1.07 Glucose 194 H Calcium 9.8 Cardiac Enzymes 02/07/19 Range/Units 20:47 Troponin I < 0.03 (< 0.04) ng/mL Liver Function 02/07/19 Range/Units 20:47 Total Bilirubin 0.5 (0.3-1.0) mg/dL Direct Bilirubin 0.2 (0.0-0.2) mg/dL AST 24 (13-39) Units/L ALT 35 (7-52) Units/L Alkaline Phosphatase 88 (34-104) Units/L Albumin 3.9 (3.5-5.7) g/dL Urine 02/07/19 Range/Units 23:40 Urine Color Yellow (Yellow) Urine Clarity Clear (Clear) Urine pH 6.0 (5.0-8.0) pH Units Ur Specific [place] 1.028 H (1.010-1.025) Urine Protein Trace (Neg-Trace) mg/dL Urine Glucose (UA) Normal (Normal) mg/dL - Impressions ITS Impressions Chest CTA 02/07/19 20:42 IMPRESSION: 1. No scan evidence for pulmonary embolus. 2. Multiloculated right-sided hemopneumothorax. 3. Coronary artery disease. D/ / Gil Campbell MD / Gil Campbell MD Interpreting Provider: Gil Campbell MD Chest X-Ray 02/07/19 20:42 IMPRESSION: Consolidation within the right mid upper lung, nonspecific, atelectasis versus pneumonia. That must be followed to resolution. D/ / Benjamin Myers MD / Benjamin Myers MD Interpreting Provider: Benjamin Myers MD - Time Spent With Patient Total time spent is greater than 50% in coordination of care (as documented) at patient's floor/unit and/or counseling patient: - Attending Attestation I performed a history and physical exam of the patient and discussed management with the resident. I reviewed the resident's note and agree with the documented findings and plan of care. Evert Velasquez is a 58 year old man with cutaneous and pulmonary blastomycosis who has undergone a plethora of right lung surgical interventions and recently had his chest tube taken out only 2 days prior and presents to the ER with acute onset chest pain after a severe coughing episode. On imaging he is seen to have a hemopneumothorax. He remains hemodynamically stable. Leukocyte elevation is noted but possibly reactionary from his recent procedures and current status as there were no preceding signs/symptoms concerning for infection. Will continue to monitor the trend of this. He will need thoracic surgery consultation for further care measures of this issue. He needs to continue itraconazole 200mg BID and I suspect he will need at least 12 months of therapy. He only started taking it a few days ago and therefore he will need at least 2 weeks of continued dosing before checking a serum level to ensure his trough level is adequate (goal >1.0). Pain control measures and antitussives ordered. MIGUEL GUERRERO.
[2019-02-08] MEDS: *HR* OxyCODONE Immed Rel 5 MG TABLET PO PRN ×3 (04:19→18:45)
[2019-02-08 05:44] LABS: Basophils % 0.3 %; Eosinophils % 0.1 %; Hematocrit 35.6 % (37.5-50.1); Immature Granulocytes % 1.5 % (0-4); Lymphocytes # 1.6 K/mcL (0.6-4.6); Lymphocytes % 10.6 %; Mean Corpuscular Hemoglobin 30.2 pg (28.0-33.3); Mean Corpuscular Volume 94.4 fL (83.0-100.0); Mean Platelet Volume 9.9 fL (9.4-12.4); Monocytes # 1.9 K/mcL (0.0-1.3); Monocytes % 12.6 %; Neutrophils # 11.4 K/mcL (1.6-8.9); Platelet Count 233 K/mcL (140-400); Red Blood Count 3.77 M/mcL (4.19-5.50); Red Cell Distribution Width 12.4 % (11.5-14.5); Segmented Neutrophils % 74.9 %; White Blood Count 15.2 K/mcL (4.3-11.1)
[2019-02-08 05:48] LABS: Hemoglobin 11.4 g/dL (12.9-16.9)
[2019-02-08] MEDS ORDERED: *HR* Heparin 5,000 UNIT/ML VIAL SQ SCH (06:00)
[2019-02-08 06:02] LABS: BUN/Creatinine Ratio 24 (6-26); Blood Urea Nitrogen 23 mg/dL (6-20); Calcium 8.4 mg/dL (8.6-10.3); Carbon Dioxide 23 mEq/L (23-29); Chloride 104 mEq/L (98-107); Glucose 140 mg/dL (70-105); Osmolality,Calculated 284 (280-300); Sodium 134 mEq/L (136-145); eGFR For African Americans > 60 (> 60); eGFR For Non-African Americans > 60 (> 60)
--- NOTE | 2019-02-08 08:00 | Event Note ---
Date of Encounter: 02/08/19 Time of Encounter: 12:00 Seen and assessed and agree with plan per night team Plan Pleural effusion s/p lobectomy for blastomycosis. Will treat empirically for pneumonia with zosyn. CT surgery on board for thoracentesis on sunday
--- NOTE | 2019-02-08 09:21 | Cardiothoracic Consult Note ---
Date of Encounter: 02/08/19 Time of Encounter: 09:01 Assessment and Plan (1) Pleural effusion, right Current Visit: Yes Status: Acute The patient has a right middle lobe consolidation and a right pleural effusion after undergoing a right thoracotomy with right upper lobe resection for blastomycosis. He had 2 talc pleurodeses in the immediate postoperative period. He presents to [facility] emergency department with sudden onset of right-sided chest pain and diaphoresis. A chest x-ray showed the right middle lobe consolidation and a right pleural effusion. Although the effusion is read as new, is chest x-rays during his postoperative period showed a similar consolidative process and effusion. I spoke with Dr. Jed Roy this morning and the plan is to treat the patient with antibiotics for presumed pneumonia and perform an ultrasound guided right thoracentesis and interventional radiology on Sunday. The assessment and plan as outlined above was discussed with the patient and/or family members who expressed understanding and agreement. All questions were answered. - History of Present Illness Consult date: 02/07/19 Requesting physician: Gordon Appiah Consult reason: Right pleural effusion Chief complaint: Right-sided chest pain History of present illness: Mr. Velasquez is a 58 year old hypertensive man with hypercholesterolemia and known CAD (status post CABG 3 on 05/30/2018). He underwent a right thoracotomy with right upper lobe resection for blastomycosis on 01/30/2019. This was followed by talc pleurodesis 2 on 01/31/2018 and 02/01/2019. The patient was discharged home on 02/05/2019. Yesterday, the patient had sudden onset of right-sided chest pain and diaphoresis. He was evaluated at [facility] emergency department and found to be hypotensive with a systolic blood pressure approximately 80 mmHg. The patient was given IV fluids with resolution of his diaphoresis. A chest x-ray showed a right middle lobe consolidation and a new right pleural effusion. This was confirmed by chest CTA. Past Med Surg Social Fam HX - Past Medical History Medical history: coronary artery disease, GI bleed, hyperlipidemia, hypertension, other (Systemic blastomycosis) Additional medical history: CHEST PAIN Psychiatric history: no psych history - Past Surgical History Surgical History: appendectomy, coronary bypass (CABG) Additional surgical history: Right Upper lobectomy - Social History Smoking Status: Former smoker Smokeless Tobacco Status: No Alcohol use: occasionally Drug use: none Occupational status: employed Current living situation: Home - Independent Activity Level: Independent ambulation, Very active Recent Out of Country Travel Within the Last 8 Weeks: No Exposure or Possible Exposure to Illness During Travel: No - Family History Mother Living Status: Hx Family Cardiac Disorders: Yes Brother Living Status: Hx Family Cardiac Disorders: Yes ([place]) Medications and Allergies Rosuvastatin [Crestor] 20 mg PO HS 05/27/18 [History] Ferrous Sulfate [Iron] 325 mg PO QPM 12/11/18 [History] Multivitamin [Multivitamins] 1 each PO QAM 12/11/18 [History] Metoprolol Succinate 25 mg PO QPM 12/24/18 [History] Aspirin Enteric Coated [Aspirin EC] 81 mg PO QAM 01/30/19 [History] Tramadol HCl [Ultram] 50 mg PO DAILY PRN 01/30/19 [History] Gabapentin [Neurontin] 300 mg PO BID 02/07/19 [History] Hydrocodone/Acetaminophen [[place] 7.5-325 Tablet] 1 each PO Q4H PRN 02/07/19 [History] Itraconazole [Sporanox] 200 mg PO BID 02/07/19 [History] Allergy/AdvReac Type Severity Reaction Status Date / Time No Known Allergies Allergy Verified 02/07/19 20:29 All Systems Review: The remainder of the systems were reviewed and are negative Physical Examination Vital Signs, Last 4 Hours Temp Pulse Resp BP Pulse Ox 02/08/19 07:06 98.6 F 96 18 121/85 99 General: Conversant, Other (Patient has some incisional discomfort.) Neck: No JVD, Normal carotid pulses Cardiac: Reg Rate and Rhythm, Normal S1 and S2, No Murmur Lungs: Normal Breath Sounds (Left lung bejarano), Decreased breath sounds (Right lung bejarano) Neuro: Alert and responsive, No focal deficits noted Vascular: Normal capillary refill Extremities: No Clubbing, No Cyanosis, No Edema Results 02/08/19 05:03 02/08/19 05:03 Lab Results, Last 24 hours 02/07/19 02/07/19 02/07/19 20:47 20:47 20:47 WBC 22.1 H D Hgb 13.8 Hct 40.6 Plt Count 352 D INR 1.1 Sodium 137 Potassium 4.5 Chloride 102 Carbon Dioxide 24 BUN 21 H Creatinine 1.07 Glucose 194 H Calcium 9.8 Magnesium 2.3 Total Bilirubin 0.5 AST 24 ALT 35 Alkaline Phosphatase 88 Troponin I < 0.03 Lipase 34 02/08/19 02/08/19 05:03 05:03 WBC 15.2 H Hgb 11.4 L D Hct 35.6 L Plt Count 233 INR Sodium 134 L Potassium 5.0 Chloride 104 Carbon Dioxide 23 BUN 23 H Creatinine 0.94 Glucose 140 H Calcium 8.4 L Magnesium Total Bilirubin AST ALT Alkaline Phosphatase Troponin I Lipase - Imaging Chest Xray: image reviewed (Right middle lobe consolidation. Right pleural effusion.) Consult Discharge Plan - Plan Referrals: Corry Wang, COMPUTER GAME TESTER [Primary Care Provider] -
[2019-02-08] MEDS: Piperacillin/Tazobactam 3.375 GM in 0.9 % Sodium Chloride Mini Bag 100 ML IVPB SCH ×2 (10:00→16:07)
[2019-02-08] MEDS: Multivit/Ca/Min/Fe/FA 1 TAB TABLET PO SCH (10:00)
[2019-02-08] MEDS: Gabapentin 300 MG CAPSULE PO SCH ×3 (10:01→20:18)
[2019-02-08] MEDS: *HR* HYDROcodone/Acet 7.5/325 mg TABLET PO PRN ×2 (16:08→21:34)
[2019-02-08] MEDS: Metoprolol XL (24 HR) Succ 25 MG TAB.ER.24H PO SCH (16:30)
[2019-02-08] MEDS: Albuterol 2.5 MG/3 ML NEBULIZER IH PRN (20:39)
[2019-02-09] MEDS: Piperacillin/Tazobactam 3.375 GM in 0.9 % Sodium Chloride Mini Bag 100 ML IVPB SCH ×3 (00:43→15:17)
[2019-02-09] MEDS: *HR* OxyCODONE Immed Rel 5 MG TABLET PO PRN ×4 (00:44→21:26)
[2019-02-09 04:17] LABS: Basophils # 0.1 K/mcL (0.0-0.2); Basophils % 0.5 %; Eosinophils # 0.2 K/mcL (0.0-0.6); Eosinophils % 1.6 %; Hematocrit 31.4 % (37.5-50.1); Hemoglobin 10.3 g/dL (12.9-16.9); Immature Granulocytes % 1.2 % (0-4); Lymphocytes # 2.2 K/mcL (0.6-4.6); Lymphocytes % 17.2 %; Mean Corpuscular HGB Conc 32.8 g/dL (31.6-35.5); Mean Corpuscular Hemoglobin 30.7 pg (28.0-33.3); Mean Corpuscular Volume 93.7 fL (83.0-100.0); Mean Platelet Volume 9.6 fL (9.4-12.4); Monocytes # 1.5 K/mcL (0.0-1.3); Monocytes % 12.3 %; Neutrophils # 8.4 K/mcL (1.6-8.9); Platelet Count 233 K/mcL (140-400); Red Blood Count 3.35 M/mcL (4.19-5.50); Red Cell Distribution Width 12.3 % (11.5-14.5); Segmented Neutrophils % 67.2 %; White Blood Count 12.6 K/mcL (4.3-11.1)
[2019-02-09 04:36] LABS: BUN/Creatinine Ratio 22 (6-26); Blood Urea Nitrogen 20 mg/dL (6-20); Calcium 8.7 mg/dL (8.6-10.3); Carbon Dioxide 27 mEq/L (23-29); Chloride 99 mEq/L (98-107); Glucose 140 mg/dL (70-105); Magnesium 2.1 mg/dL (1.6-2.6); Osmolality,Calculated 277 (280-300); Potassium 4.2 mEq/L (3.5-5.1); Sodium 131 mEq/L (136-145); eGFR For African Americans > 60 (> 60); eGFR For Non-African Americans > 60 (> 60)
[2019-02-09] MEDS: *HR* HYDROcodone/Acet 7.5/325 mg TABLET PO PRN ×2 (04:49→18:24)
--- NOTE | 2019-02-09 07:40 | Internal Med Progress Note ---
Hospitalist Progress Note - Encounter Date of Encounter: 02/09/19 Time of Encounter: 12:00 - Subjective Interval History: No acute events overnight - Exam Vitals: Temp Pulse Resp BP Pulse Ox 98.1 F 92 16 132/87 97 02/09/19 07:00 02/09/19 07:00 02/09/19 07:00 02/09/19 07:00 02/09/19 07:00 Exam: Alert and oriented, normal affect Cranial nerves II through XII intact, no focal deficits Pupils equal and reactive to light, extraocular movements intact Heart in regular rate and rhythm without murmur or gallop auscultated Lungs clear to auscultation on the left, diminished breath sounds on the right Abdomen obese and soft and nontender with normal bowel sounds noted Motor 5/5 in all 4 extremities, sensation intact Skin warm and dry without rash. There is a bandage over the chest tube site on the right chest wall and significant ecchymosis to the right chest wall. There is a black eschar lesion to the inner right thigh and keloidal appearing lesion to left upper back associated with blastomycosis dermatitis - Assessment and Plan (1) Pleural effusion, right Current Visit: Yes Status: Acute Assessment and Plan: Pt has multiloculated pleural effusion/ hemopneumothorax s/p chest tube removal by CT surgery Pt is getting zosyn for pneumonia. WBC trending down CT surgery on board for thoracentesis in am (2) Hospital acquired PNA Current Visit: Yes Status: Acute Assessment and Plan: Pt had leukocytosis with multiloculated effusion possibly secondary to bacterial HCAP Continue zosyn. Follow blood cultures (3) Blastomycosis Current Visit: Yes Status: Acute Assessment and Plan: Continue itraconazole (4) Hemopneumothorax on right Current Visit: Yes Status: Acute Assessment and Plan: See #1 (5) DVT prophylaxis Current Visit: Yes Status: Acute Assessment and Plan: SCDs - Time Spent with Patient Total time spent is greater than 50% in coordination of care (as documented) at patient's floor/unit and/or counseling patient: Internal Medicine: Result - Labs CBC & Chem 7: 02/09/19 03:45 02/09/19 03:45 Labs: Short CBC 02/09/19 Range/Units 03:45 WBC 12.6 H (4.3-11.1) K/mcL Hgb 10.3 L (12.9-16.9) g/dL Hct 31.4 L (37.5-50.1) % Plt Count 233 (140-400) K/mcL Neutrophils # 8.4 (1.6-8.9) K/mcL BMP 02/09/19 03:45 Sodium 131 L Potassium 4.2 Chloride 99 Carbon Dioxide 27 BUN 20 Creatinine 0.91 Glucose 140 H Calcium 8.7 - ABG Interpretation ABG results: PT/INR, D-dimer PT 12.3 Seconds (9.4-12.1) H 02/07/19 20:47 Consult Discharge Plan - Plan Referrals: Corry Wang, SEAT NAILER [Primary Care Provider] -
[2019-02-09] MEDS: Multivit/Ca/Min/Fe/FA 1 TAB TABLET PO SCH (08:45)
[2019-02-09] MEDS: Gabapentin 300 MG CAPSULE PO SCH ×3 (08:45→20:01)
--- NOTE | 2019-02-09 10:39 | Cardiothoracic Progress Note ---
Date of Encounter: 02/09/19 Time of Encounter: 10:31 - Assessment and plan (1) Pleural effusion, right Current Visit: Yes Status: Acute The patient has a right middle lobe consolidation and a right pleural effusion after undergoing a right thoracotomy with right upper lobe resection for blastomycosis. He had 2 talc pleurodeses in the immediate postoperative period. He presents to [facility] emergency department with sudden onset of right-sided chest pain and diaphoresis. A chest x-ray showed the right middle lobe consolidation and a right pleural effusion. Although the effusion is read as new, is chest x-rays during his postoperative period showed a similar consolidative process and effusion. I spoke with Dr. Jed Roy this morning and the plan is to treat the patient with antibiotics for presumed pneumonia and perform an ultrasound guided right thoracentesis and interventional radiology on Sunday. The assessment and plan as outlined above was discussed with the patient and/or family members who expressed understanding and agreement. All questions were answered. - Subjective Interval history: The patient remained hemodynamically stable overnight. He is sleeping in his hospital bed and is breathing comfortably. He has no complaints Vital Signs, Last 4 Hours Temp Pulse Resp BP Pulse Ox 02/09/19 08:40 97 02/09/19 07:00 98.1 F 92 16 132/87 97 Oxgyen Flow Rate Oxygen Flow Rate (LPM) 2 Clinical Data, last 8 Hours Output, Urine Amount 200 Output, Urine Amount 325 Weight 02/07/19 02/08/19 02/09/19 23:59 23:59 23:59 Weight 122.47 kg 123.1 kg 125.7 kg - Physical Examination General: Conversant, No Apparent Distress HEENT: Atraumatic, Normocephaly, Trachea midline Neck: No JVD, Normal carotid pulses Cardiac: Reg Rate and Rhythm, Normal S1 and S2, No Murmur Incision: No signs of infection, Dry/intact dressing Lungs: Normal Breath Sounds (Left lung bejarano), Decreased breath sounds (Right lung bejarano) Neuro: Alert and responsive, No focal deficits noted Vascular: Normal capillary refill Extremities: No Clubbing, No Cyanosis, No Edema - Labs 02/09/19 03:45 02/09/19 03:45 Lab Results, Last 24 hours 02/09/19 02/09/19 03:45 03:45 WBC 12.6 H Hgb 10.3 L Hct 31.4 L Plt Count 233 Sodium 131 L Potassium 4.2 Chloride 99 Carbon Dioxide 27 BUN 20 Creatinine 0.91 Glucose 140 H Calcium 8.7 Magnesium 2.1 Consult Discharge Plan - Plan Referrals: Corry Wang, POWER TRANSMISSION ENGINEER [Primary Care Provider] -
[2019-02-09] MEDS: Albuterol 2.5 MG/3 ML NEBULIZER IH PRN ×2 (11:07→19:40)
[2019-02-09] MEDS: Metoprolol XL (24 HR) Succ 25 MG TAB.ER.24H PO SCH (18:24)
[2019-02-10] MEDS: Piperacillin/Tazobactam 3.375 GM in 0.9 % Sodium Chloride Mini Bag 100 ML IVPB SCH ×3 (00:45→18:40)
[2019-02-10] MEDS: *HR* HYDROcodone/Acet 7.5/325 mg TABLET PO PRN ×3 (00:47→13:41)
[2019-02-10 04:18] LABS: Basophils # 0.1 K/mcL (0.0-0.2); Basophils % 0.5 %; Eosinophils # 0.3 K/mcL (0.0-0.6); Eosinophils % 2.2 %; Hematocrit 27.3 % (37.5-50.1); Hemoglobin 9.1 g/dL (12.9-16.9); Immature Granulocytes % 0.9 % (0-4); Lymphocytes # 2.1 K/mcL (0.6-4.6); Lymphocytes % 16.3 %; Mean Corpuscular HGB Conc 33.3 g/dL (31.6-35.5); Mean Corpuscular Hemoglobin 31.3 pg (28.0-33.3); Mean Corpuscular Volume 93.8 fL (83.0-100.0); Mean Platelet Volume 9.7 fL (9.4-12.4); Monocytes # 1.8 K/mcL (0.0-1.3); Monocytes % 13.5 %; Neutrophils # 8.7 K/mcL (1.6-8.9); Nucleated Red Blood Cells 0.2 /100 WBC (0); Platelet Count 228 K/mcL (140-400); Red Blood Count 2.91 M/mcL (4.19-5.50); Red Cell Distribution Width 12.4 % (11.5-14.5); Segmented Neutrophils % 66.6 %
[2019-02-10 04:40] LABS: BUN/Creatinine Ratio 19 (6-26); Blood Urea Nitrogen 15 mg/dL (6-20); Calcium 8.5 mg/dL (8.6-10.3); Carbon Dioxide 28 mEq/L (23-29); Chloride 96 mEq/L (98-107); Glucose 131 mg/dL (70-105); Magnesium 2.2 mg/dL (1.6-2.6); Osmolality,Calculated 275 (280-300); Phosphorous 3.9 mg/dL (2.7-4.5); Potassium 4.4 mEq/L (3.5-5.1); Sodium 131 mEq/L (136-145); eGFR For African Americans > 60 (> 60); eGFR For Non-African Americans > 60 (> 60)
[2019-02-10] MEDS: *HR* OxyCODONE Immed Rel 5 MG TABLET PO PRN ×3 (04:54→20:30)
[2019-02-10] MEDS: Albuterol 2.5 MG/3 ML NEBULIZER IH PRN ×3 (07:21→20:29)
[2019-02-10] MEDS: Gabapentin 300 MG CAPSULE PO SCH ×3 (07:38→20:30)
[2019-02-10] MEDS: Multivit/Ca/Min/Fe/FA 1 TAB TABLET PO SCH (07:38)
--- NOTE | 2019-02-10 07:38 | Internal Med Progress Note ---
Hospitalist Progress Note - Encounter Date of Encounter: 02/10/19 Time of Encounter: 07:30 - Subjective Interval History: No acute events overnight - Exam Vitals: Temp Pulse Resp BP Pulse Ox 98.7 F 91 16 147/87 96 02/10/19 07:05 02/10/19 07:05 02/10/19 07:21 02/10/19 07:05 02/10/19 07:21 Exam: Alert and oriented, normal affect Cranial nerves II through XII intact, no focal deficits Pupils equal and reactive to light, extraocular movements intact Heart in regular rate and rhythm without murmur or gallop auscultated Lungs clear to auscultation on the left, diminished breath sounds on the right Abdomen obese and soft and nontender with normal bowel sounds noted Motor 5/5 in all 4 extremities, sensation intact Skin warm and dry without rash. There is a bandage over the chest tube site on the right chest wall and significant ecchymosis to the right chest wall. There is a black eschar lesion to the inner right thigh and keloidal appearing lesion to left upper back associated with blastomycosis dermatitis - Assessment and Plan (1) Pleural effusion, right Current Visit: Yes Status: Acute Assessment and Plan: Pt has multiloculated pleural effusion/ hemopneumothorax s/p chest tube removal by CT surgery Pt is getting zosyn for pneumonia. WBC trending down CT surgery on board for thoracentesis today (2) Hospital acquired PNA Current Visit: Yes Status: Acute Assessment and Plan: Pt had leukocytosis with multiloculated effusion possibly secondary to bacterial HCAP Continue zosyn. Follow blood cultures (3) Blastomycosis Current Visit: Yes Status: Acute Assessment and Plan: Continue itraconazole (4) Hemopneumothorax on right Current Visit: Yes Status: Acute Assessment and Plan: See #1 (5) DVT prophylaxis Current Visit: Yes Status: Acute Assessment and Plan: SCDs - Time Spent with Patient Total time spent is greater than 50% in coordination of care (as documented) at patient's floor/unit and/or counseling patient: Internal Medicine: Result - Labs CBC & Chem 7: 02/10/19 03:56 02/10/19 03:56 Labs: Short CBC 02/10/19 Range/Units 03:56 WBC 13.0 H (4.3-11.1) K/mcL Hgb 9.1 L (12.9-16.9) g/dL Hct 27.3 L (37.5-50.1) % Plt Count 228 (140-400) K/mcL Neutrophils # 8.7 (1.6-8.9) K/mcL BMP 02/10/19 03:56 Sodium 131 L Potassium 4.4 Chloride 96 L Carbon Dioxide 28 BUN 15 Creatinine 0.80 Glucose 131 H Calcium 8.5 L - ABG Interpretation ABG results: PT/INR, D-dimer PT 12.3 Seconds (9.4-12.1) H 02/07/19 20:47 Consult Discharge Plan - Plan Referrals: Corry Wang, MAINTENANCE DATA ANALYST [Primary Care Provider] - (Sent web request on 02-10-19 @ [id number])
--- NOTE | 2019-02-10 11:26 | Electrocardiograph Report ---
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
[2019-02-10] MEDS: *HR* FentaNYL (PF) 100 MCG/2 ML VIAL IVP ONE ×2 (13:44→13:49)
--- NOTE | 2019-02-10 13:48 | Cardiothoracic Progress Note ---
Date of Encounter: 02/10/19 Time of Encounter: 13:46 - Assessment and plan (1) Pleural effusion Current Visit: Yes Status: Acute The assessment and plan as outlined above was discussed with the patient and/or family members who expressed understanding and agreement. All questions were answered. order thoracentesis - Subjective Interval history: tired Vital Signs, Last 4 Hours Temp Pulse Resp BP Pulse Ox 02/10/19 13:44 16 99 02/10/19 10:59 97.8 F 83 18 113/76 97 Oxgyen Flow Rate Oxygen Flow Rate (LPM) 2 Clinical Data, last 8 Hours Output, Urine Amount 200 Weight 02/08/19 02/09/19 02/10/19 23:59 23:59 23:59 Weight 123.1 kg 125.7 kg - Physical Examination General: Conversant, No Apparent Distress HEENT: Atraumatic, Normocephaly Cardiac: Reg Rate and Rhythm Incision: No signs of infection, Open to air Lungs: Other (absent on the right.) Neuro: Alert and responsive, No focal deficits noted - Labs 02/10/19 03:56 02/10/19 03:56 Lab Results, Last 24 hours 02/10/19 02/10/19 03:56 03:56 WBC 13.0 H Hgb 9.1 L Hct 27.3 L Plt Count 228 Sodium 131 L Potassium 4.4 Chloride 96 L Carbon Dioxide 28 BUN 15 Creatinine 0.80 Glucose 131 H Calcium 8.5 L Magnesium 2.2 - Imaging Chest Xray: image reviewed Consult Discharge Plan - Plan Referrals: Corry Wang, RN CASE MANAGEMENT [Primary Care Provider] - (Sent web request on 02-10-19 @ [phone])
--- NOTE | 2019-02-10 14:57 | IR Procedure Note ---
Date of procedure: 02/10/19 Consent Obtained: Written consent Timeout: Correct patient and procedure verified, Correct site verified, Time out performed, Skin prep completed Local anesthetic: Lidocaine 1% Was there an assistant therapy aide present: No Estimated blood loss (cc): 0 Complications: None; Tolerated procedure well Indications: right effusoin Procedure Performed: right 12 F chest tube Site/Technique: right pleural space Results/Findings (any specimens removed): bloody fluid draining to pleurovac Post Procedure Treatment Plan: pleurovac Specimen: NA
[2019-02-10] MEDS: Metoprolol XL (24 HR) Succ 25 MG TAB.ER.24H PO SCH (18:41)
[2019-02-11] MEDS: Piperacillin/Tazobactam 3.375 GM in 0.9 % Sodium Chloride Mini Bag 100 ML IVPB SCH ×2 (00:27→07:51)
[2019-02-11] MEDS: Albuterol 2.5 MG/3 ML NEBULIZER IH PRN ×3 (02:06→21:28)
[2019-02-11] MEDS: *HR* OxyCODONE Immed Rel 5 MG TABLET PO PRN ×2 (04:45→13:02)
[2019-02-11 06:34] LABS: Basophils % 0.4 %; Eosinophils # 0.3 K/mcL (0.0-0.6); Eosinophils % 2.8 %; Hemoglobin 8.2 g/dL (12.9-16.9); Immature Granulocytes % 0.8 % (0-4); Lymphocytes # 1.5 K/mcL (0.6-4.6); Lymphocytes % 14.2 %; Mean Corpuscular HGB Conc 32.8 g/dL (31.6-35.5); Mean Corpuscular Hemoglobin 30.9 pg (28.0-33.3); Mean Corpuscular Volume 94.3 fL (83.0-100.0); Mean Platelet Volume 10.3 fL (9.4-12.4); Monocytes # 0.9 K/mcL (0.0-1.3); Monocytes % 8.9 %; Nucleated Red Blood Cells 0.2 /100 WBC (0); Platelet Count 243 K/mcL (140-400); Red Blood Count 2.65 M/mcL (4.19-5.50); Red Cell Distribution Width 12.6 % (11.5-14.5); Segmented Neutrophils % 72.9 %; White Blood Count 10.6 K/mcL (4.3-11.1)
[2019-02-11 06:43] LABS: BUN/Creatinine Ratio 15 (6-26); Blood Urea Nitrogen 12 mg/dL (6-20); Calcium 8.3 mg/dL (8.6-10.3); Carbon Dioxide 28 mEq/L (23-29); Chloride 95 mEq/L (98-107); Glucose 176 mg/dL (70-105); Magnesium 2.1 mg/dL (1.6-2.6); Osmolality,Calculated 280 (280-300); Phosphorous 3.6 mg/dL (2.7-4.5); Potassium 4.3 mEq/L (3.5-5.1); Sodium 133 mEq/L (136-145); eGFR For African Americans > 60 (> 60); eGFR For Non-African Americans > 60 (> 60)
[2019-02-11 07:10] LABS: Neutrophils # 7.7 K/mcL (1.6-8.9)
[2019-02-11 07:11] LABS: Platelet Estimate Normal (Normal)
--- NOTE | 2019-02-11 07:37 | Internal Med Progress Note ---
Hospitalist Progress Note - Encounter Date of Encounter: 02/11/19 Time of Encounter: 07:30 - Subjective Interval History: s/p thoracentesis with chest tube placement in last 24hrs - Exam Vitals: Temp Pulse Resp BP Pulse Ox 98.7 F 89 18 147/67 98 02/11/19 07:09 02/11/19 07:09 02/11/19 07:09 02/11/19 07:09 02/11/19 07:09 Exam: Alert and oriented, normal affect Cranial nerves II through XII intact, no focal deficits Pupils equal and reactive to light, extraocular movements intact Heart in regular rate and rhythm without murmur or gallop auscultated Lungs clear to auscultation on the left, chest tube in place on right side Abdomen obese and soft and nontender with normal bowel sounds noted Motor 5/5 in all 4 extremities, sensation intact Skin warm and dry without rash. There is a black eschar lesion to the inner right thigh and keloidal appearing lesion to left upper back associated with blastomycosis dermatitis - Assessment and Plan (1) Pleural effusion, right Current Visit: Yes Status: Acute Assessment and Plan: Pt has multiloculated pleural effusion/ hemopneumothorax s/p chest tube removal by CT surgery Pt had thoracentesis yesterday with removal of 2L of fluid Chest tube in place and draining. WBC trended down to 10. Switch to po ant ibiotics (2) Hospital acquired PNA Current Visit: Yes Status: Acute Assessment and Plan: Pt had leukocytosis with multiloculated effusion possibly secondary to bacterial HCAP WBC trended down. Tapered IV antibiotics to po levaquin (3) Blastomycosis Current Visit: Yes Status: Acute Assessment and Plan: Continue itraconazole (4) Hemopneumothorax on right Current Visit: Yes Status: Acute Assessment and Plan: See #1 (5) DVT prophylaxis Current Visit: Yes Status: Acute Assessment and Plan: SCDs - Time Spent with Patient Total time spent is greater than 50% in coordination of care (as documented) at patient's floor/unit and/or counseling patient: Internal Medicine: Result - Labs CBC & Chem 7: 02/11/19 04:40 02/11/19 04:40 Labs: Short CBC 02/11/19 Range/Units 04:40 WBC 10.6 (4.3-11.1) K/mcL Hgb 8.2 L (12.9-16.9) g/dL Hct 25.0 L (37.5-50.1) % Plt Count 243 (140-400) K/mcL Neutrophils # 7.7 (1.6-8.9) K/mcL BMP 02/11/19 04:40 Sodium 133 L Potassium 4.3 Chloride 95 L Carbon Dioxide 28 BUN 12 Creatinine 0.82 Glucose 176 H Calcium 8.3 L - ABG Interpretation ABG results: PT/INR, D-dimer PT 12.3 Seconds (9.4-12.1) H 02/07/19 20:47 - Impressions Impressions Chest X-Ray 02/10/19 06:00 IMPRESSION: Complete consolidation of the right lung likely secondary combination of collapse and effusion Stable right-sided rib fractures. D/ / Duc Norman MD / Duc Norman MD Interpreting Provider: Duc Norman MD Consult Discharge Plan - Plan Referrals: Corry Wang, CUSTODIAN [Primary Care Provider] - 02/21/19 1:00 pm (Sent web request on 02-10-19 @ [phone])
[2019-02-11] MEDS: Gabapentin 300 MG CAPSULE PO SCH ×3 (07:51→21:52)
[2019-02-11] MEDS: Multivit/Ca/Min/Fe/FA 1 TAB TABLET PO SCH (07:51)
--- NOTE | 2019-02-11 09:39 | Cardiothoracic Progress Note ---
Date of Encounter: 02/11/19 Time of Encounter: 09:37 - Assessment and plan (1) Pleural effusion Current Visit: Yes Status: Acute The assessment and plan as outlined above was discussed with the patient and/or family members who expressed understanding and agreement. All questions were answered. orders for chest tube to suction, chest xray, ambulate, change antibx to po. - Subjective Interval history: tired Vital Signs, Last 4 Hours Temp Pulse Resp BP Pulse Ox 02/11/19 07:09 98.7 F 89 18 147/67 98 Oxgyen Flow Rate Oxygen Flow Rate (LPM) 3 Clinical Data, last 8 Hours Output, Chest Tube Drainage 0 Amount [Right Lower] Output, Chest Tube Drainage 0 Amount [Right Lower] Output, Urine Amount 150 Output, Urine Amount 250 Output, Urine Amount 50 Output, Urine Amount 200 Output, Urine Amount 200 Weight 02/09/19 02/10/19 02/11/19 23:59 23:59 23:59 Weight 125.7 kg 125.5 kg - Physical Examination General: Conversant, No Apparent Distress, Well developed, Well nourished HEENT: Atraumatic, Normocephaly Cardiac: Reg Rate and Rhythm, Normal S1 and S2 Incision: No signs of infection, Dry/intact dressing, Open to air Lungs: Decreased breath sounds, Other (decreased at the right base but greatly improved) Neuro: Alert and responsive, No focal deficits noted, Cranial nerves intact, Motor nerves intact Abdomen: Soft, Non-tender - Labs 02/11/19 04:40 02/11/19 04:40 Lab Results, Last 24 hours 02/11/19 02/11/19 04:40 04:40 WBC 10.6 Hgb 8.2 L Hct 25.0 L Plt Count 243 Sodium 133 L Potassium 4.3 Chloride 95 L Carbon Dioxide 28 BUN 12 Creatinine 0.82 Glucose 176 H Calcium 8.3 L Magnesium 2.1 Consult Discharge Plan - Plan Referrals: Corry Wang, CHIEF LIBRARIAN EXTENSION DEPARTMENT [Primary Care Provider] - (Sent web request on 02-10-19 @ [phone])
[2019-02-11] MEDS ORDERED: Milk and Molasses Enema 200 ML RC ONE (13:45)
[2019-02-11] MEDS: Metoprolol XL (24 HR) Succ 25 MG TAB.ER.24H PO SCH (17:14)
[2019-02-12 07:09] LABS: Basophils # 0.1 K/mcL (0.0-0.2); Basophils % 0.4 %; Eosinophils # 0.3 K/mcL (0.0-0.6); Eosinophils % 2.1 %; Hematocrit 27.6 % (37.5-50.1); Hemoglobin 8.9 g/dL (12.9-16.9); Immature Granulocytes % 0.6 % (0-4); Lymphocytes # 1.7 K/mcL (0.6-4.6); Lymphocytes % 14.6 %; Mean Corpuscular HGB Conc 32.2 g/dL (31.6-35.5); Mean Corpuscular Hemoglobin 31.2 pg (28.0-33.3); Mean Corpuscular Volume 96.8 fL (83.0-100.0); Mean Platelet Volume 9.6 fL (9.4-12.4); Monocytes # 1.2 K/mcL (0.0-1.3); Monocytes % 9.7 %; Neutrophils # 8.6 K/mcL (1.6-8.9); Platelet Count 295 K/mcL (140-400); Red Blood Count 2.85 M/mcL (4.19-5.50); Red Cell Distribution Width 12.8 % (11.5-14.5); Segmented Neutrophils % 72.6 %; White Blood Count 11.8 K/mcL (4.3-11.1)
[2019-02-12 07:28] LABS: BUN/Creatinine Ratio 16 (6-26); Blood Urea Nitrogen 12 mg/dL (6-20); Calcium 9.1 mg/dL (8.6-10.3); Carbon Dioxide 34 mEq/L (23-29); Chloride 99 mEq/L (98-107); Glucose 115 mg/dL (70-105); Magnesium 2.3 mg/dL (1.6-2.6); Osmolality,Calculated 287 (280-300); Phosphorous 4.2 mg/dL (2.7-4.5); Potassium 4.3 mEq/L (3.5-5.1); Sodium 138 mEq/L (136-145); eGFR For African Americans > 60 (> 60); eGFR For Non-African Americans > 60 (> 60)
[2019-02-12] MEDS: levoFLOXacin 500 MG TABLET PO SCH (08:32)
[2019-02-12] MEDS: Multivit/Ca/Min/Fe/FA 1 TAB TABLET PO SCH (08:32)
[2019-02-12] MEDS: Gabapentin 300 MG CAPSULE PO SCH ×3 (08:32→20:04)
--- NOTE | 2019-02-12 09:07 | Cardiothoracic Progress Note ---
Date of Encounter: 02/12/19 Time of Encounter: 09:06 - Assessment and plan (1) Pleural effusion Current Visit: Yes Status: Acute The assessment and plan as outlined above was discussed with the patient and/or family members who expressed understanding and agreement. All questions were answered. orders for chest tube to suction, wait to obtain labs on sunday, ambulate off the floor. - Subjective Interval history: tired would like to hold off on labs for 24 hours tramadol for pain Vital Signs, Last 4 Hours Temp Pulse Resp BP Pulse Ox 02/12/19 07:05 98.7 F 88 17 129/73 95 Oxgyen Flow Rate Oxygen Flow Rate (LPM) 3 Clinical Data, last 8 Hours Output, Urine Amount 450 Output, Urine Amount 350 Weight 02/10/19 02/11/19 02/12/19 23:59 23:59 23:59 Weight 125.5 kg 125.8 kg - Physical Examination General: Conversant, No Apparent Distress HEENT: Atraumatic, Normocephaly Neck: No JVD Cardiac: Reg Rate and Rhythm, Normal S1 and S2 Incision: No signs of infection Neuro: Alert and responsive, No focal deficits noted, Cranial nerves intact, Motor nerves intact - Labs 02/12/19 06:12 02/12/19 06:12 Lab Results, Last 24 hours 02/12/19 02/12/19 06:12 06:12 WBC 11.8 H Hgb 8.9 L Hct 27.6 L Plt Count 295 Sodium 138 Potassium 4.3 Chloride 99 Carbon Dioxide 34 H BUN 12 Creatinine 0.77 Glucose 115 H Calcium 9.1 Magnesium 2.3 - Imaging Chest Xray: image reviewed Consult Discharge Plan - Plan Referrals: Corry Wang TRANSFORMER ASSEMBLER [Primary Care Provider] - 02/21/19 1:00 pm (Sent web re quest on 02-10-19 @ [phone])
[2019-02-12] MEDS: Albuterol 2.5 MG/3 ML NEBULIZER IH PRN ×3 (09:16→20:21)
--- NOTE | 2019-02-12 12:30 | Internal Med Progress Note ---
Hospitalist Progress Note - Encounter Date of Encounter: 02/12/19 Time of Encounter: 10:10 - Subjective Interval History: Patient is awake and alert. Doing well overall. Denies any chest pain or palpitations. No nausea or vomiting. Constipation relieved after edema. No significant shortness of breath. - Exam Vitals: Temp Pulse Resp BP Pulse Ox 98.3 F 93 19 163/84 99 02/12/19 10:57 02/12/19 10:57 02/12/19 10:57 02/12/19 10:57 02/12/19 10:57 Exam: General: Patient is alert, no acute distress, oriented x 3 Respiratory: Right-sided chest tube in place with decreased breath sounds at the bases Cardiovascular: Regular rate and rhythm. s1 and s2 normal No clicks, rubs, gallops, or murmurs. No pedal edema Abdomen: Abdomen is soft, nontender. Bowel sounds are present Musculoskeletal: Spontaneously moving all extremities Skin: warm, dry, intact. Neuro: Alert oriented x 3 normal cranial nerves, no focal deficits - Assessment and Plan (1) Hemopneumothorax on right Current Visit: Yes Status: Acute (2) Blastomycosis Current Visit: Yes Status: Acute (3) Pleural effusion, right Current Visit: Yes Status: Acute (4) Hospital acquired PNA Current Visit: Yes Status: Acute (5) DVT prophylaxis Current Visit: Yes Status: Acute DVT Prophylaxis: On SCDs. Consider starting subcutaneous heparin if okay with cardiothoracic surgery - Summary of Assessment and Plan Summary of Assessment and Plan: Right-sided pleural effusion with hemopneumothorax: Status post pleural pigtail catheter placement. Chest x-ray shows slight increase in effusion on the right with basilar atelectasis. We will order incentive spirometry. Patient has had negative fluid balance. Blastomycosis: Continue Sporanox. Pneumonia: Possibly hospital-acquired. On Levaquin now. Will continue. Essential hypertension: Continue metoprolol. Blood pressure intermittently elevated. If persistent, will add VANESSA inhibitor or ARB - Time Spent with Patient Total time spent is greater than 50% in coordination of care (as documented) at patient's floor/unit and/or counseling patient: Internal Medicine: Result - Labs CBC & Chem 7: 02/12/19 06:12 02/12/19 06:12 Labs: Short CBC 02/12/19 Range/Units 06:12 WBC 11.8 H (4.3-11.1) K/mcL Hgb 8.9 L (12.9-16.9) g/dL Hct 27.6 L (37.5-50.1) % Plt Count 295 (140-400) K/mcL Neutrophils # 8.6 (1.6-8.9) K/mcL BMP 02/12/19 06:12 Sodium 138 Potassium 4.3 Chloride 99 Carbon Dioxide 34 H BUN 12 Creatinine 0.77 Glucose 115 H Calcium 9.1 - ABG Interpretation ABG results: PT/INR, D-dimer PT 12.3 Seconds (9.4-12.1) H 02/07/19 20:47 - Impressions Impressions Chest X-Ray 02/12/19 08:00 IMPRESSION: Right thoracostomy tube has been exchanged for a pleural pigtail catheter. Effusion is increased, as has right basilar atelectasis. D/ / Bam Russell / Bam Russell Interpreting Provider: Bam Russell Consult Discharge Plan - Plan Referrals: Corry Wang, DIRECTOR OF SPA AND GUEST EXPERIENCE [Primary Care Provider] - 02/21/19 1:00 pm (Sent web request on 02-10-19 @ [phone])
[2019-02-12] MEDS: Metoprolol XL (24 HR) Succ 25 MG TAB.ER.24H PO SCH (15:56)
[2019-02-13] MEDS: Albuterol 2.5 MG/3 ML NEBULIZER IH PRN ×3 (05:09→20:35)
[2019-02-13] MEDS: levoFLOXacin 500 MG TABLET PO SCH (07:32)
[2019-02-13] MEDS: Multivit/Ca/Min/Fe/FA 1 TAB TABLET PO SCH (07:32)
[2019-02-13] MEDS: Gabapentin 300 MG CAPSULE PO SCH ×3 (07:33→21:07)
--- NOTE | 2019-02-13 13:05 | Internal Med Progress Note ---
Hospitalist Progress Note - Encounter Date of Encounter: 02/13/19 Time of Encounter: 11:30 - Subjective Interval History: Patient doing well overall. Denies any new complaints. Tolerating diet well. No fever or chills reported overnight. No shortness of breath. No chest pain at this time. - Exam Vitals: Temp Pulse Resp BP Pulse Ox 98.4 F 85 18 142/92 95 02/13/19 11:13 02/13/19 11:13 02/13/19 11:13 02/13/19 11:13 02/13/19 11:13 Exam: General: Patient is alert, no acute distress, oriented x 3 Respiratory: Right-sided chest tube in place Cardiovascular: Regular rate and rhythm. s1 and s2 normal No clicks, rubs, gallops, or murmurs. No pedal edema Abdomen: Abdomen is soft, nontender. Bowel sounds are present Musculoskeletal: Spontaneously moving all extremities Skin: warm, dry, intact. Neuro: Alert oriented x 3 normal cranial nerves, no focal deficits - Assessment and Plan (1) Hemopneumothorax on right Current Visit: Yes Status: Acute (2) Blastomycosis Current Visit: Yes Status: Acute (3) Pleural effusion, right Current Visit: Yes Status: Acute (4) Hospital acquired PNA Current Visit: Yes Status: Acute (5) DVT prophylaxis Current Visit: Yes Status: Acute DVT Prophylaxis: On SCDs. - Summary of Assessment and Plan Summary of Assessment and Plan: Right-sided pleural effusion with hemopneumothorax: Status post pleural pigtail catheter placement. Improved aeration in the right base per x-ray done today. Continue management per cardiothoracic surgery recommendations. Blastomycosis: Continue Sporanox. Pneumonia: Possibly hospital-acquired. On Levaquin now. Will continue. Essential hypertension: Continue metoprolol. Blood pressure remains intermittently elevated. Will add lisinopril to antihypertensive regimen Moderate risk for complications - Time Spent with Patient Total time spent is greater than 50% in coordination of care (as documented) at patient's floor/unit and/or counseling patient: Internal Medicine: Result - Labs CBC & Chem 7: 02/12/19 06:12 02/12/19 06:12 - ABG Interpretation ABG results: PT/INR, D-dimer PT 12.3 Seconds (9.4-12.1) H 02/07/19 20:47 - Impressions Impressions Chest X-Ray 02/13/19 08:00 IMPRESSION: Mild improved aeration at the right lung base, otherwise similar appearing chest. D/ / Ayaan Raymond MD / Ayaan Raymond MD Interpreting Provider: Ayaan Raymond MD Consult Discharge Plan - Plan Additional Instructions: Please go to Out Patient testing on February 18 around 0730 AM to get an x-ray done before you go see Dr. Roy. The office is sending the order over to out patient testing at the [facility]. Referrals: Corry Wang CNP [Primary Care Provider] - 02/21/19 1:00 pm (Sent web request on 02-10-19 @ [phone]) Jed Roy MD [Partnered Physician] - 02/18/19 8:30 am
[2019-02-13] MEDS: Metoprolol XL (24 HR) Succ 25 MG TAB.ER.24H PO SCH (17:16)
[2019-02-13] MEDS: *HR* HYDROcodone/Acet 7.5/325 mg TABLET PO PRN (22:47)
[2019-02-14 05:38] LABS: Hematocrit 28.3 % (37.5-50.1); Hemoglobin 9.2 g/dL (12.9-16.9); Mean Corpuscular HGB Conc 32.5 g/dL (31.6-35.5); Mean Corpuscular Hemoglobin 30.7 pg (28.0-33.3); Mean Corpuscular Volume 94.3 fL (83.0-100.0); Mean Platelet Volume 9.4 fL (9.4-12.4); Platelet Count 351 K/mcL (140-400); White Blood Count 12.5 K/mcL (4.3-11.1)
[2019-02-14 05:54] LABS: % Iron Saturation 7 % (20-55); Iron 22 mcg/dL (65-175); Transferrin 224 mg/dL (203-362)
[2019-02-14] MEDS: Multivit/Ca/Min/Fe/FA 1 TAB TABLET PO SCH (08:08)
[2019-02-14] MEDS: levoFLOXacin 500 MG TABLET PO SCH (08:08)
[2019-02-14] MEDS: Gabapentin 300 MG CAPSULE PO SCH ×3 (08:08→20:55)
[2019-02-14] MEDS ORDERED: Iron Sucrose Complex 400 MG in 0.9 % Sodium Chloride 250 ML IVPB ONE (09:24)
--- NOTE | 2019-02-14 10:11 | Cardiothoracic Progress Note ---
Date of Encounter: 02/14/19 Time of Encounter: 10:10 - Assessment and plan (1) Pleural effusion Current Visit: Yes Status: Acute The assessment and plan as outlined above was discussed with the patient and/or family members who expressed understanding and agreement. All questions were answered. orders for chest tube to suction, wait to obtain labs on with chest xray. rounded with nurse. - Subjective Interval history: tired would like to hold off on labs for 24 hours tramadol for pain Vital Signs, Last 4 Hours Temp Pulse Resp BP Pulse Ox 02/14/19 08:02 16 98 02/14/19 07:20 98.8 F 75 18 126/76 97 Oxgyen Flow Rate Oxygen Flow Rate (LPM) 2.5 Clinical Data, last 8 Hours Output, Urine Amount 400 Output, Urine Amount 250 Weight 02/12/19 02/13/19 02/14/19 23:59 23:59 23:59 Weight 125.8 kg 124.5 kg 125.1 kg - Physical Examination General: Conversant, No Apparent Distress HEENT: Atraumatic, Normocephaly Cardiac: Reg Rate and Rhythm, Normal S1 and S2 Incision: No signs of infection, Dry/intact dressing Lungs: Normal Breath Sounds Neuro: Alert and responsive, No focal deficits noted, Cranial nerves intact - Labs 02/14/19 04:51 02/12/19 06:12 Lab Results, Last 24 hours 02/14/19 04:51 WBC 12.5 H Hgb 9.2 L Hct 28.3 L Plt Count 351 Consult Discharge Plan - Plan Additional Instructions: Please go to Out Patient testing on February 18 around 0730 AM to get an x-ray done before you go see Dr. Roy. The office is sending the order over to out patient testing at the [facility]. Referrals: Corry Wang CNP [Primary Care Provider] - 02/21/19 1:00 pm (Sent web request on 02-10-19 @ [phone]) Jed Roy MD [Partnered Physician] - 02/18/19 8:30 am
[2019-02-14] MEDS: *HR* HYDROcodone/Acet 7.5/325 mg TABLET PO PRN ×2 (10:14→20:56)
[2019-02-14] MEDS: Albuterol 2.5 MG/3 ML NEBULIZER IH PRN ×3 (11:00→21:17)
--- NOTE | 2019-02-14 13:38 | Internal Med Progress Note ---
Hospitalist Progress Note - Encounter Date of Encounter: 02/14/19 Time of Encounter: 11:00 - Subjective Interval History: Patient is awake and alert. Denies any new complaints at this time. Has cough with deep breaths. No fevers or chills reported overnight. No hemoptysis. - Exam Vitals: Temp Pulse Resp BP Pulse Ox 98.4 F 82 17 125/72 98 02/14/19 11:14 02/14/19 11:14 02/14/19 11:14 02/14/19 11:14 02/14/19 11:14 Exam: General: Patient is alert, no acute distress, oriented x 3 Respiratory: Good respiratory effort. Normal breath sounds. No wheezing or crackles.Right-sided chest tube in place Cardiovascular: Regular rate and rhythm. s1 and s2 normal No clicks, rubs, gallops, or murmurs. No pedal edema Musculoskeletal: Spontaneously moving all extremities Skin: warm, dry, intact. Neuro: Alert oriented x 3 normal cranial nerves, no focal deficits - Assessment and Plan (1) Hemopneumothorax on right Current Visit: Yes Status: Acute (2) Blastomycosis Current Visit: Yes Status: Acute (3) Pleural effusion, right Current Visit: Yes Status: Acute (4) Hospital acquired PNA Current Visit: Yes Status: Acute (5) DVT prophylaxis Current Visit: Yes Status: Acute DVT Prophylaxis: On SCDs. - Summary of Assessment and Plan Summary of Assessment and Plan: Right-sided pleural effusion with hemopneumothorax: Status post pleural pigtail catheter placement. Cardiothoracic surgery managing. Continue supportive care. Blastomycosis: Continue Sporanox. Pneumonia: Possibly hospital-acquired. On Levaquin now. Will continue. Will complete 7 day course. Essential hypertension: Blood pressure better controlled now. Continue metoprolol and lisinopril Anemia: Due to hemopneumothorax and surgery. Does have iron deficiency. Infused venofer today. Hemoglobin levels stable at 9.2. - Time Spent with Patient Total time spent is greater than 50% in coordination of care (as documented) at patient's floor/unit and/or counseling patient: Internal Medicine: Result - Labs CBC & Chem 7: 02/14/19 04:51 02/12/19 06:12 Labs: Short CBC 02/14/19 Range/Units 04:51 WBC 12.5 H (4.3-11.1) K/mcL Hgb 9.2 L (12.9-16.9) g/dL Hct 28.3 L (37.5-50.1) % Plt Count 351 (140-400) K/mcL - ABG Interpretation ABG results: PT/INR, D-dimer PT 12.3 Seconds (9.4-12.1) H 02/07/19 20:47 Consult Discharge Plan - Plan Additional Instructions: Please go to Out Patient testing on February 18 around 0730 AM to get an x-ray done before you go see Dr. Roy. The office is sending the order over to out patient testing at the main hospital. Referrals: Corry Wang CNP [Primary Care Provider] - 02/21/19 1:00 pm (Sent web request on 02-10-19 @ [phone]) Jed Roy MD [Partnered Physician] - 02/18/19 8:30 am
[2019-02-14] MEDS: Metoprolol XL (24 HR) Succ 25 MG TAB.ER.24H PO SCH (16:47)
[2019-02-15] MEDS: traMADol 50 MG TABLET PO PRN (00:19)
[2019-02-15] MEDS: GuaiFENesin/Codeine Oral Soln 5 ML UDC PO PRN ×3 (01:00→21:00)
[2019-02-15 05:26] LABS: Hematocrit 29.2 % (37.5-50.1); Hemoglobin 9.3 g/dL (12.9-16.9); Mean Corpuscular HGB Conc 31.8 g/dL (31.6-35.5); Mean Corpuscular Hemoglobin 30.8 pg (28.0-33.3); Mean Corpuscular Volume 96.7 fL (83.0-100.0); Mean Platelet Volume 9.3 fL (9.4-12.4); Platelet Count 373 K/mcL (140-400); Red Blood Count 3.02 M/mcL (4.19-5.50); Red Cell Distribution Width 12.8 % (11.5-14.5); White Blood Count 11.8 K/mcL (4.3-11.1)
[2019-02-15 05:38] LABS: BUN/Creatinine Ratio 23 (6-26); Blood Urea Nitrogen 18 mg/dL (6-20); Calcium 8.9 mg/dL (8.6-10.3); Carbon Dioxide 27 mEq/L (23-29); Chloride 100 mEq/L (98-107); Glucose 130 mg/dL (70-105); Magnesium 2.1 mg/dL (1.6-2.6); Osmolality,Calculated 286 (280-300); Potassium 4.5 mEq/L (3.5-5.1); Sodium 136 mEq/L (136-145); eGFR For African Americans > 60 (> 60); eGFR For Non-African Americans > 60 (> 60)
[2019-02-15] MEDS: Gabapentin 300 MG CAPSULE PO SCH ×3 (08:30→20:59)
[2019-02-15] MEDS: Multivit/Ca/Min/Fe/FA 1 TAB TABLET PO SCH (08:30)
[2019-02-15] MEDS: levoFLOXacin 500 MG TABLET PO SCH (08:31)
--- NOTE | 2019-02-15 08:49 | Cardiothoracic Progress Note ---
Date of Encounter: 02/15/19 Time of Encounter: 08:47 - Assessment and plan (1) Pleural effusion Current Visit: Yes Status: Acute The assessment and plan as outlined above was discussed with the patient and/or family members who expressed understanding and agreement. All questions were answered. rounded with nurse. stop lisinopril reviewed labs orderd 2 view chest xray - Subjective Interval history: increasing cough since being on lisinopril Vital Signs, Last 4 Hours Temp Pulse Resp BP Pulse Ox 02/15/19 07:15 98.0 F 83 16 108/65 95 Oxgyen Flow Rate Oxygen Flow Rate (LPM) 0 Clinical Data, last 8 Hours Output, Chest Tube Drainage 80 Amount [Right Lower] Weight 02/13/19 02/14/19 02/15/19 23:59 23:59 23:59 Weight 124.5 kg 125.1 kg 123.9 kg - Physical Examination General: Conversant, No Apparent Distress, Well developed, Well nourished HEENT: Atraumatic, Normocephaly Cardiac: Reg Rate and Rhythm, Normal S1 and S2 Incision: No signs of infection Chest tubes: Minimal drainage Lungs: Normal Breath Sounds Neuro: Alert and responsive, No focal deficits noted, Cranial nerves intact Abdomen: Soft - Labs 02/15/19 04:40 02/15/19 04:40 Lab Results, Last 24 hours 02/15/19 02/15/19 04:40 04:40 WBC 11.8 H Hgb 9.3 L Hct 29.2 L Plt Count 373 Sodium 136 Potassium 4.5 Chloride 100 Carbon Dioxide 27 BUN 18 Creatinine 0.80 Glucose 130 H Calcium 8.9 Magnesium 2.1 Consult Discharge Plan - Plan Additional Instructions: Please go to Out Patient testing on February 18 around 0730 AM to get an x-ray done before you go see Dr. Roy. The office is sending the order over to out patient testing at the [facility]. Referrals: Corry Wang CNP [Primary Care Provider] - 02/21/19 1:00 pm (Sent web request on 02-10-19 @ [phone]) Jed Roy MD [Partnered Physician] - 02/18/19 8:30 am
[2019-02-15] MEDS: Albuterol 2.5 MG/3 ML NEBULIZER IH PRN (09:50)
--- NOTE | 2019-02-15 10:41 | Internal Med Progress Note ---
Hospitalist Progress Note - Encounter Date of Encounter: 02/15/19 Time of Encounter: 09:50 - Subjective Interval History: Patient is sitting up in chair. Complains of mild cough. Able to ambulate on the floor without any significant discomfort. No fever or chills reported overnight. - Exam Vitals: Temp Pulse Resp BP Pulse Ox 98.0 F 83 18 108/65 98 02/15/19 07:15 02/15/19 07:15 02/15/19 09:50 02/15/19 07:15 02/15/19 09:50 Exam: General: Patient is alert, no acute distress, oriented x 3 Respiratory: Right-sided chest tube in place. Improved air entry at both bases Cardiovascular: Regular rate and rhythm. s1 and s2 normal No clicks, rubs, gallops, or murmurs. No pedal edema Abdomen: Abdomen is soft, nontender. Bowel sounds are present Musculoskeletal: Spontaneously moving all extremities Skin: warm, dry, intact. Neuro: Alert oriented x 3 normal cranial nerves, no focal deficits - Assessment and Plan (1) Hemopneumothorax on right Current Visit: Yes Status: Acute (2) Blastomycosis Current Visit: Yes Status: Acute (3) Pleural effusion, right Current Visit: Yes Status: Acute (4) Hospital acquired PNA Current Visit: Yes Status: Acute (5) DVT prophylaxis Current Visit: Yes Status: Acute DVT Prophylaxis: On SCDs. - Summary of Assessment and Plan Summary of Assessment and Plan: Right-sided pleural effusion with hemopneumothorax: Status post pleural pigtail catheter placement. Cardiothoracic surgery managing. Plan to remove chest tube tomorrow if patient continues to improve. Blastomycosis: Continue Sporanox. Pneumonia: Continue Levaquin. Essential hypertension: Blood pressure remains well controlled. Continue metoprolol. Agree with discontinuing lisinopril due to cough. Anemia: Stable. Hemoglobin 9.3 today. - Time Spent with Patient Total time spent is greater than 50% in coordination of care (as documented) at patient's floor/unit and/or counseling patient: Internal Medicine: Result - Labs CBC & Chem 7: 02/15/19 04:40 02/15/19 04:40 Labs: Short CBC 02/15/19 Range/Units 04:40 WBC 11.8 H (4.3-11.1) K/mcL Hgb 9.3 L (12.9-16.9) g/dL Hct 29.2 L (37.5-50.1) % Plt Count 373 (140-400) K/mcL BMP 02/15/19 04:40 Sodium 136 Potassium 4.5 Chloride 100 Carbon Dioxide 27 BUN 18 Creatinine 0.80 Glucose 130 H Calcium 8.9 - ABG Interpretation ABG results: PT/INR, D-dimer PT 12.3 Seconds (9.4-12.1) H 02/07/19 20:47 Consult Discharge Plan - Plan Additional Instructions: Please go to Out Patient testing on February 18 around 0730 AM to get an x-ray done before you go see Dr. Roy. The office is sending the order over to out patient testing at the main hospital. Referrals: Corry Wang CNP [Primary Care Provider] - 02/21/19 1:00 pm (Sent web request on 02-10-19 @ [phone]) Jed Roy MD [Partnered Physician] - 02/18/19 8:30 am
[2019-02-15] MEDS: Metoprolol XL (24 HR) Succ 25 MG TAB.ER.24H PO SCH (17:41)
[2019-02-15] MEDS: *HR* HYDROcodone/Acet 7.5/325 mg TABLET PO PRN (21:00)
[2019-02-16] MEDS: traMADol 50 MG TABLET PO PRN (00:07)
[2019-02-16] MEDS: levoFLOXacin 500 MG TABLET PO SCH (08:03)
[2019-02-16] MEDS: Gabapentin 300 MG CAPSULE PO SCH ×3 (08:03→20:16)
[2019-02-16] MEDS: Multivit/Ca/Min/Fe/FA 1 TAB TABLET PO SCH (08:03)
--- NOTE | 2019-02-16 09:19 | Cardiothoracic Progress Note ---
Date of Encounter: 02/16/19 Time of Encounter: 09:16 - Assessment and plan (1) Pleural effusion Current Visit: Yes Status: Acute The assessment and plan as outlined above was discussed with the patient and/or family members who expressed understanding and agreement. All questions were answered. rounded with nurse. reviewed chest xray results. benadryl for insomnia, tessilon for cough ivf. check fluid for triglyceride level discussed duct embolization - Subjective Interval history: cannot sleep Vital Signs, Last 4 Hours Temp Pulse Resp BP Pulse Ox 02/16/19 06:59 98.2 F 77 18 132/78 95 Oxgyen Flow Rate Oxygen Flow Rate (LPM) 0 Clinical Data, last 8 Hours Output, Urine Amount 250 Output, Urine Amount 325 Weight 02/14/19 02/15/19 02/16/19 23:59 23:59 23:59 Weight 125.1 kg 123.9 kg 119.5 kg - Physical Examination General: Conversant, No Apparent Distress HEENT: Atraumatic, Normocephaly Neck: No JVD Cardiac: Reg Rate and Rhythm, Normal S1 and S2 Incision: No signs of infection, Dry/intact dressing Chest tubes: Other (730 for 24 hours ) Neuro: Alert and responsive, No focal deficits noted, Cranial nerves intact - Labs 02/15/19 04:40 02/15/19 04:40 - Imaging Chest Xray: image reviewed Consult Discharge Plan - Plan Additional Instructions: Please go to Out Patient testing on February 18 around 0730 AM to get an x-ray done before you go see Dr. Roy. The office is sending the order over to out patient testing at the [facility]. Referrals: Corry Wang CNP [Primary Care Provider] - 02/21/19 1:00 pm (Sent web request on 02-10-19 @ [id number]) Jed Roy MD [Partnered Physician] - 02/18/19 8:30 am
[2019-02-16] MEDS: 0.9 % Sodium Chloride 1,000 ML IVC SCH ×2 (09:44→23:06)
[2019-02-16] MEDS: GuaiFENesin/Codeine Oral Soln 5 ML UDC PO PRN ×2 (09:47→20:16)
--- NOTE | 2019-02-16 12:55 | Internal Med Progress Note ---
Hospitalist Progress Note - Encounter Date of Encounter: 02/16/19 Time of Encounter: 12:52 - Subjective Interval History: Patient continues to have cough. Otherwise no other new complaints at this time. No fever or chills reported overnight. No chest pain or palpitations. - Exam Vitals: Temp Pulse Resp BP Pulse Ox 98.0 F 71 18 126/84 100 02/16/19 11:27 02/16/19 11:27 02/16/19 11:27 02/16/19 11:27 02/16/19 11:27 Exam: General: Patient is alert, no acute distress, oriented x 3 Respiratory: Good air entry at both bases right-sided chest tube in place Nor mal breath sounds. No wheezing or crackles. Cardiovascular: Regular rate and rhythm. s1 and s2 normal No clicks, rubs, gallops, or murmurs. No pedal edema Abdomen: Abdomen is soft, nontender. Bowel sounds are present Musculoskeletal: Spontaneously moving all extremities Skin: warm, dry, intact. Neuro: Alert oriented x 3 normal cranial nerves, no focal deficits - Assessment and Plan (1) Hemopneumothorax on right Current Visit: Yes Status: Acute (2) Blastomycosis Current Visit: Yes Status: Acute (3) Pleural effusion, right Current Visit: Yes Status: Acute (4) Hospital acquired PNA Current Visit: Yes Status: Acute (5) DVT prophylaxis Current Visit: Yes Status: Acute DVT Prophylaxis: On SCDs. - Summary of Assessment and Plan Summary of Assessment and Plan: Right-sided pleural effusion with hemopneumothorax: Status post pleural pigtail catheter placement. Cardiothoracic surgery managing. Chest x-ray done today shows increased fullness in the right azygous vein region. May need embolization for this. Cardiothoracic surgery will discuss this further with interventional radiology. Blastomycosis: Continue Sporanox. Pneumonia: Continue Levaquin. Essential hypertension: Blood pressure remains well controlled. Continue metoprolol. Anemia: Stable. Recheck labs tomorrow. - Time Spent with Patient Total time spent is greater than 50% in coordination of care (as documented) at patient's floor/unit and/or counseling patient: Internal Medicine: Result - Labs CBC & Chem 7: 02/15/19 04:40 02/15/19 04:40 - ABG Interpretation ABG results: PT/INR, D-dimer PT 12.3 Seconds (9.4-12.1) H 02/07/19 20:47 - Impressions Impressions Chest X-Ray 02/15/19 08:43 IMPRESSION: 1. No interval change in right pleural effusion and associated relaxation atelectasis right lung. 2. Right rib fractures. 3. Right pleural catheter. 4. Left lung is clear. 5. Cardiomegaly. D/ / Aldo Zabala / Aldo Zabala Interpreting Provider: Aldo Zabala Consult Discharge Plan - Plan Additional Instructions: Please go to Out Patient testing on February 18 around 0730 AM to get an x-ray done before you go see Dr. Roy. The office is sending the order over to out patient testing at the main hospital. Referrals: Corry Wang CNP [Primary Care Provider] - 02/21/19 1:00 pm (Sent web request on 02-10-19 @ [id number]) Jed Roy MD [Partnered Physician] - 02/18/19 8:30 am
[2019-02-16] MEDS: Benzonatate 100 MG CAPSULE PO PRN (17:07)
[2019-02-16] MEDS: Metoprolol XL (24 HR) Succ 25 MG TAB.ER.24H PO SCH (17:07)
[2019-02-16] MEDS: *HR* HYDROcodone/Acet 7.5/325 mg TABLET PO PRN (20:16)
[2019-02-17] MEDS: Benzonatate 100 MG CAPSULE PO PRN (06:14)
[2019-02-17] MEDS: Multivit/Ca/Min/Fe/FA 1 TAB TABLET PO SCH (07:46)
[2019-02-17] MEDS: Gabapentin 300 MG CAPSULE PO SCH ×3 (07:46→20:23)
--- NOTE | 2019-02-17 08:04 | Internal Med Progress Note ---
Hospitalist Progress Note - Encounter Date of Encounter: 02/17/19 - Exam Vitals: Temp Pulse Resp BP Pulse Ox 98.1 F 69 18 117/73 96 02/17/19 07:19 02/17/19 07:19 02/17/19 07:19 02/17/19 07:19 02/17/19 07:19 - Time Spent with Patient Total time spent is greater than 50% in coordination of care (as documented) at patient's floor/unit and/or counseling patient: Internal Medicine: Result - Labs CBC & Chem 7: 02/15/19 04:40 02/15/19 04:40 - ABG Interpretation ABG results: PT/INR, D-dimer PT 12.3 Seconds (9.4-12.1) H 02/07/19 20:47 Consult Discharge Plan - Plan Referrals: Corry Wang CNP [Primary Care Provider] - 02/21/19 1:00 pm (Sent web request on 02-10-19 @ [id number]) Jed Roy MD [Partnered Physician] -
[2019-02-17] MEDS: levoFLOXacin 500 MG TABLET PO SCH (09:13)
--- NOTE | 2019-02-17 09:14 | Cardiothoracic Progress Note ---
Date of Encounter: 02/17/19 Time of Encounter: 09:13 - Assessment and plan (1) Pleural effusion Current Visit: Yes Status: Acute The assessment and plan as outlined above was discussed with the patient and/or family members who expressed understanding and agreement. All questions were answered. rounded with nurse. ordered chest xray for today. if outputs remain this low for another day, would remove chest tube on 02/19 - Subjective Interval history: cannot sleep Vital Signs, Last 4 Hours Temp Pulse Resp BP Pulse Ox 02/17/19 07:19 98.1 F 69 18 117/73 96 Oxgyen Flow Rate Oxygen Flow Rate (LPM) 0 Clinical Data, last 8 Hours Output, Chest Tube Drainage 0 Amount [Right Lower] Output, Chest Tube Drainage 0 Amount [Right Lower] Output, Urine Amount 200 Output, Urine Amount 100 Output, Urine Amount 200 Output, Urine Amount 550 Weight 02/15/19 02/16/19 02/17/19 23:59 23:59 23:59 Weight 123.9 kg 119.5 kg - Physical Examination General: Conversant, No Apparent Distress, Well developed, Well nourished HEENT: Atraumatic, Normocephaly, Trachea midline Cardiac: Reg Rate and Rhythm, Normal S1 and S2 Incision: No signs of infection, Dry/intact dressing Chest tubes: Minimal drainage Lungs: Normal Breath Sounds Neuro: Alert and responsive, No focal deficits noted, Cranial nerves intact, Mo tor nerves intact - Labs 02/15/19 04:40 02/15/19 04:40 Consult Discharge Plan - Plan Referrals: Corry Wang CNP [Primary Care Provider] - 02/21/19 1:00 pm (Sent web request on 02-10-19 @ [phone]) Jed Roy MD [Partnered Physician] -
[2019-02-17] MEDS: 0.9 % Sodium Chloride 1,000 ML IVC SCH (11:51)
[2019-02-17] MEDS: Metoprolol XL (24 HR) Succ 25 MG TAB.ER.24H PO SCH (17:34)
[2019-02-17] MEDS: GuaiFENesin/Codeine Oral Soln 5 ML UDC PO PRN (20:22)
[2019-02-18] MEDS: Benzonatate 100 MG CAPSULE PO PRN ×3 (00:05→17:32)
[2019-02-18] MEDS: 0.9 % Sodium Chloride 1,000 ML IVC SCH (00:20)
[2019-02-18] MEDS: levoFLOXacin 500 MG TABLET PO SCH (08:43)
[2019-02-18] MEDS: Gabapentin 300 MG CAPSULE PO SCH ×3 (08:43→21:54)
[2019-02-18] MEDS: Multivit/Ca/Min/Fe/FA 1 TAB TABLET PO SCH (08:43)
--- NOTE | 2019-02-18 10:19 | Event Note ---
Date of Encounter: 02/18/19 Time of Encounter: 10:[address] Roy. Will sign off. Please call with any questions.
--- NOTE | 2019-02-18 10:43 | Cardiothoracic Progress Note ---
Date of Encounter: 02/18/19 Time of Encounter: 10:42 - Assessment and plan (1) Pleural effusion Current Visit: Yes Status: Acute The assessment and plan as outlined above was discussed with the patient and/or family members who expressed understanding and agreement. All questions were answered. rounded with nurse. plan to remove chest tube tomorrow - Subjective Interval history: cannot sleep Vital Signs, Last 4 Hours Temp Pulse Resp BP Pulse Ox 02/18/19 07:11 97.9 F 78 18 129/95 97 Oxgyen Flow Rate Oxygen Flow Rate (LPM) 0 Clinical Data, last 8 Hours Output, Urine Amount 600 Output, Urine Amount 650 Weight 02/16/19 02/17/19 02/18/19 23:59 23:59 23:59 Weight 119.5 kg - Physical Examination General: Other (resting) Cardiac: Reg Rate and Rhythm Chest tubes: Minimal drainage - Labs 02/15/19 04:40 02/15/19 04:40 - Imaging Chest Xray: image reviewed Consult Discharge Plan - Plan Referrals: Corry Wang CNP [Primary Care Provider] - 02/27/19 1:00 pm () Jed Roy MD [Partnered Physician] - 02/25/19 9:15 am
[2019-02-18 10:53] LABS: Fluid Source for Triglycerides PLEURAL FLUID
[2019-02-18 11:31] LABS: Triglycerides,Body Fluid 397 mg/dL
[2019-02-18] MEDS: Metoprolol XL (24 HR) Succ 25 MG TAB.ER.24H PO SCH (17:28)
--- NOTE | 2019-02-19 08:22 | Cardiothoracic Progress Note ---
Date of Encounter: 02/19/19 Time of Encounter: 08:20 - Assessment and plan (1) Pleural effusion Current Visit: Yes Status: Acute The assessment and plan as outlined above was discussed with the patient and/or family members who expressed understanding and agreement. All questions were answered. rounded with nurse. removed chest tube.. chest xray at noon. - Subjective Interval history: cannot sleep Vital Signs, Last 4 Hours Temp Pulse Resp BP Pulse Ox 02/19/19 07:04 97.8 F 80 18 129/81 97 Oxgyen Flow Rate Oxygen Flow Rate (LPM) 0 Clinical Data, last 8 Hours Output, Urine Amount 350 Output, Urine Amount 250 Output, Urine Amount 550 Output, Urine Amount 250 Weight 02/17/19 02/18/19 02/19/19 23:59 23:59 23:59 Weight 118.7 kg - Physical Examination General: Conversant, No Apparent Distress, Well developed, Well nourished HEENT: Atraumatic, Normocephaly Cardiac: Reg Rate and Rhythm, Normal S1 and S2 Incision: No signs of infection, Dry/intact dressing Chest tubes: Minimal drainage Lungs: Other (slightly decreased at the right base. ) Neuro: Alert and responsive, No focal deficits noted, Cranial nerves intact - Labs 02/15/19 04:40 02/15/19 04:40 Consult Discharge Plan - Plan Referrals: Corry Wang CNP [Primary Care Provider] - 02/27/19 1:00 pm () Jed Roy MD [Partnered Physician] - 02/25/19 9:15 am
[2019-02-19] MEDS: Multivit/Ca/Min/Fe/FA 1 TAB TABLET PO SCH (09:47)
[2019-02-19] MEDS: levoFLOXacin 500 MG TABLET PO SCH (09:47)
[2019-02-19] MEDS: Gabapentin 300 MG CAPSULE PO SCH ×2 (09:47→16:21)
[2019-02-19 16:20] VITALS: BP 113/99
[2019-02-19] MEDS: Metoprolol XL (24 HR) Succ 25 MG TAB.ER.24H PO SCH (17:59)
== END 2019-02-19 18:40 | disposition home or self-care (01) | DRG 166 ==
LOC: EMEROOARM 20:27 → 2NNU 20:27 → SUATTDRO 02-08 02:01 → 2NNU 02-08 02:34
PROVIDERS: ADMIT Internal Medicine; ATTEND Thoracic Surgery (Cardiothoracic Vascular Surgery)